=== PATIENT | male | born 1955 | race Caucasian/White ===

== ENCOUNTER 2020-11-25 08:33 | Outpatient (REF) | payer BC, SELFPAY ==
[2020-11-25 09:04] LABS: MANUAL DIFF FLAG NO
[2020-11-25 09:11] LABS: Basophils Absolute Auto 0.1 X10*3/uL (0.0-0.2); Basophils Percent Auto 0.9 % (0-2); Eosinophils Absolute Auto 0.7 X10*3/uL (0.0-0.4); Hematocrit 45.6 % (42-52); Imm Gran Abs Auto 0.02 X10*3/uL (0.00-0.03); Imm Gran Pct Auto 0.2 % (0.0-0.4); Lymphocytes Absolute Auto 2.5 X10*3/uL (1.2-4.9); Lymphocytes Percent Auto 30.9 % (20-40); Mean Corpuscular HGB Conc 35.1 g/dl (31.0-36.0); Mean Corpuscular Hemoglobin 35.2 pg (27.0-33.0); Mean Corpuscular Volume 100.4 fL (80-98); Mean Platelet Volume 10.2 fL (9.4-12.4); Monocytes Absolute Auto 0.8 X10*3/uL (0.1-1.2); Monocytes Percent Auto 10.2 % (2-11); Neutrophils Percent Auto 48.8 % (45-73); Platelet Count 215 X10*3/uL (160-400); Red Blood Count 4.54 X10*6/uL (4.60-5.80); Red Cell Distribution Width 11.8 % (11.0-16.0); White Blood Count 8.1 X10*3/uL (4.8-10.8)
[2020-11-25 09:22] LABS: Alanine Aminotransferase 84 U/L (0-40); Albumin Level 4.6 g/dL (3.5-5.0); Alkaline Phosphatase 103 U/L (39-117); Anion Gap 14 (12-20); Aspartate Amino Transferase 67 U/L (5-37); Bilirubin Total 1.6 mg/dL (0.0-1.0); Blood Urea Nitrogen 20 mg/dL (9-16); Calcium 9.4 mg/dL (8.4-10.2); Carbon Dioxide 26 mmol/L (22-29); Chloride 105 mmol/L (96-108); Cholesterol 208 mg/dL; Estimated Glomerular Filt Rate > 60; Glucose Fasting 107 mg/dL (60-99); HDL Cholesterol 38 mg/dL; LDL Cholesterol Calculated 139 mg/dl; Potassium 3.7 mmol/L (3.3-5.1); Sodium 141 mmol/L (135-145); Total Protein 7.5 g/dL (6.5-8.0); Triglycerides 159 mg/dL; Uric Acid 7.4 mg/dL (3.4-7.0)
== END 2020-11-25 08:34 | disposition home or self-care (01) ==
LOC: HO.LAB 08:33
PROVIDERS: Visit Provider Internal Medicine
DX: I10 Essential (primary) hypertension (principal); E11.9 Type 2 diabetes mellitus without complications
CPT/HCPCS: 36415; 80053; 80061; 84550; 85025

== ENCOUNTER 2021-03-02 10:59 | Outpatient (REF) | payer BC, SELFPAY ==
--- NOTE | ~2021-03-02 | XR_ITS ---
EXAMINATION: CR CHEST CLINICAL INFORMATION: Cough. COMPARISON: Chest x-ray dated 12/31/2018. TECHNIQUE: 2 views of the chest were obtained. FINDINGS: The cardiomediastinal silhouette is within normal limits in size. Lungs bilaterally are symmetrically expanded and clear. No focal consolidation, effusion or pneumothorax is seen. Slight straightening of the thoracic spine is seen with minimal vertebral spondylosis in the mid thoracic spine. XR/XR chest 2V IMPRESSION: No acute pulmonary process.
== END 2021-03-02 11:00 | disposition home or self-care (01) ==
LOC: HO.XRAY 10:59
PROVIDERS: PCP Internal Medicine; Visit Provider Internal Medicine
DX: R05 Cough (principal)
CPT/HCPCS: 71046

== ENCOUNTER 2021-05-26 08:11 | Outpatient (REF) | payer BC, SELFPAY ==
[2021-05-26 09:01] LABS: Cholesterol 168 mg/dL; Glucose Fasting 116 mg/dL (60-99); HDL Cholesterol 33 mg/dL; LDL Cholesterol Calculated 104 mg/dl; Triglycerides 155 mg/dL
== END 2021-05-26 08:12 | disposition home or self-care (01) ==
LOC: HO.LAB 08:11
PROVIDERS: PCP Internal Medicine; Visit Provider Internal Medicine
DX: E11.65 Type 2 diabetes mellitus with hyperglycemia (principal)
CPT/HCPCS: 36415; 80061; 82947

== ENCOUNTER 2021-08-28 08:41 | Outpatient (REF) | payer BC, SELFPAY ==
[2021-08-28 09:12] LABS: MANUAL DIFF FLAG NO
[2021-08-28 09:42] LABS: Basophils Percent Auto 0.7 % (0-2); Eosinophils Absolute Auto 0.4 X10*3/uL (0.0-0.4); Eosinophils Percent Auto 6.6 % (0-4); Hematocrit 45.2 % (42.0-52.0); Imm Gran Abs Auto 0.01 X10*3/uL (0.00-0.03); Imm Gran Pct Auto 0.2 % (0.0-0.4); Lymphocytes Absolute Auto 1.6 X10*3/uL (1.2-4.9); Lymphocytes Percent Auto 28.2 % (20-40); Mean Corpuscular HGB Conc 35.4 g/dl (31.0-36.0); Mean Corpuscular Hemoglobin 35.2 pg (27.0-33.0); Mean Corpuscular Volume 99.3 fL (80.0-98.0); Mean Platelet Volume 9.8 fL (9.4-12.4); Monocytes Absolute Auto 0.6 X10*3/uL (0.1-1.2); Monocytes Percent Auto 10.6 % (2-11); Neutrophils Absolute Auto 3.1 x10*3/uL (2.0-8.3); Neutrophils Percent Auto 53.7 % (45-73); Platelet Count 170 X10*3/uL (160-400); Red Blood Count 4.55 X10*6/uL (4.60-5.80); Red Cell Distribution Width 12.1 % (11.0-16.0); White Blood Count 5.8 X10*3/uL (4.8-10.8)
[2021-08-28 10:06] LABS: Alanine Aminotransferase 44 U/L (0-40); Albumin Level 4.6 g/dL (3.5-5.0); Alkaline Phosphatase 101 U/L (39-117); Anion Gap 15 (12-20); Aspartate Amino Transferase 37 U/L (5-37); Bilirubin Total 1.8 mg/dL (0.0-1.0); Blood Urea Nitrogen 12 mg/dL (9-16); Calcium 9.5 mg/dL (8.4-10.2); Carbon Dioxide 26 mmol/L (22-29); Chloride 104 mmol/L (96-108); Cholesterol 203 mg/dL; Estimated Glomerular Filt Rate > 60; Glucose Fasting 119 mg/dL (60-99); HDL Cholesterol 45 mg/dL; LDL Cholesterol Calculated 127 mg/dl; Potassium 3.9 mmol/L (3.3-5.1); Sodium 141 mmol/L (135-145); Total Protein 7.6 g/dL (6.5-8.0); Triglycerides 156 mg/dL
[2021-08-28 10:27] LABS: Prostate Specific Antigen Scr 0.44 ng/mL (<0.05-4.0)
== END 2021-08-28 08:42 | disposition home or self-care (01) ==
LOC: HO.LAB 08:41
PROVIDERS: Visit Provider Internal Medicine
DX: Z00.00 Encounter for general adult medical examination without abnormal findings (principal); E11.9 Type 2 diabetes mellitus without complications; R35.1 Nocturia
CPT/HCPCS: 36415; 80053; 80061; 84153; 85025

== ENCOUNTER 2021-11-21 09:41 | Outpatient (REF) | payer BC, SELFPAY ==
[2021-11-21 10:10] LABS: MANUAL DIFF FLAG NO
[2021-11-21 10:45] LABS: Basophils Percent Auto 0.6 % (0-2); Eosinophils Absolute Auto 0.5 X10*3/uL (0.0-0.4); Eosinophils Percent Auto 7.1 % (0-4); Hematocrit 47.6 % (42.0-52.0); Hemoglobin 16.7 g/dl (14.0-18.0); Imm Gran Abs Auto 0.01 X10*3/uL (0.00-0.03); Imm Gran Pct Auto 0.1 % (0.0-0.4); Lymphocytes Percent Auto 29.7 % (20-40); Mean Corpuscular HGB Conc 35.1 g/dl (31.0-36.0); Mean Corpuscular Hemoglobin 35.2 pg (27.0-33.0); Mean Corpuscular Volume 100.2 fL (80.0-98.0); Mean Platelet Volume 10.1 fL (9.4-12.4); Monocytes Absolute Auto 0.8 X10*3/uL (0.1-1.2); Monocytes Percent Auto 11.3 % (2-11); Neutrophils Absolute Auto 3.4 x10*3/uL (2.0-8.3); Neutrophils Percent Auto 51.2 % (45-73); Platelet Count 185 X10*3/uL (160-400); Red Blood Count 4.75 X10*6/uL (4.60-5.80); Red Cell Distribution Width 11.4 % (11.0-16.0); White Blood Count 6.7 X10*3/uL (4.8-10.8)
[2021-11-21 11:26] LABS: Alanine Aminotransferase 56 U/L (0-40); Albumin Level 4.7 g/dL (3.5-5.0); Alkaline Phosphatase 122 U/L (39-117); Anion Gap 18 (12-20); Aspartate Amino Transferase 49 U/L (5-37); Bilirubin Total 1.7 mg/dL (0.0-1.0); Blood Urea Nitrogen 14 mg/dL (9-16); Carbon Dioxide 25 mmol/L (22-29); Chloride 103 mmol/L (96-108); Cholesterol 213 mg/dL; Estimated Glomerular Filt Rate > 60; Glucose Fasting 117 mg/dL (60-99); HDL Cholesterol 44 mg/dL; LDL Cholesterol Calculated 115 mg/dl; Potassium 4.6 mmol/L (3.3-5.1); Sodium 141 mmol/L (135-145); Total Protein 7.9 g/dL (6.5-8.0); Triglycerides 270 mg/dL
[2021-11-21 11:31] LABS: Prostate Specific Antigen Scr 0.53 ng/mL (<0.05-4.0); Thyroid Stimulating Hormone 3.25 uIU/mL (0.32-4.0)
== END 2021-11-21 09:42 | disposition home or self-care (01) ==
LOC: HO.LAB 09:41
PROVIDERS: PCP Internal Medicine; Visit Provider Internal Medicine
DX: Z00.00 Encounter for general adult medical examination without abnormal findings (principal); Z13.220 Encounter for screening for lipoid disorders; Z12.5 Encounter for screening for malignant neoplasm of prostate; Z13.29 Encounter for screening for other suspected endocrine disorder
CPT/HCPCS: 36415; 80053; 80061; 84153; 84443; 85025

== ENCOUNTER 2022-06-13 08:31 | Outpatient (REF) | payer BC, SELFPAY ==
[2022-06-13 09:15] LABS: Estimated Average Glucose 105 mg/dL; Hemoglobin A1c % 5.3 %
[2022-06-13 09:41] LABS: Cholesterol 191 mg/dL; Glucose Fasting 111 mg/dL (60-99); HDL Cholesterol 40 mg/dL; LDL Cholesterol Calculated 112 mg/dl; Triglycerides 199 mg/dL
== END 2022-06-13 08:32 | disposition home or self-care (01) ==
LOC: HO.LAB 08:31
PROVIDERS: PCP Internal Medicine; Visit Provider Internal Medicine
DX: Z00.00 Encounter for general adult medical examination without abnormal findings (principal); E11.65 Type 2 diabetes mellitus with hyperglycemia
CPT/HCPCS: 36415; 80061; 82947; 83036

== ENCOUNTER 2022-06-29 09:17 | Outpatient (REF) | payer BC, SELFPAY ==
[2022-06-29 09:33] LABS: MANUAL DIFF FLAG NO
[2022-06-29 10:15] LABS: Basophils Absolute Auto 0.1 X10*3/uL (0.0-0.2); Basophils Percent Auto 0.9 % (0-2); Eosinophils Absolute Auto 0.7 X10*3/uL (0.0-0.4); Eosinophils Percent Auto 8.4 % (0-4); Hematocrit 47.7 % (42.0-52.0); Hemoglobin 17.1 g/dl (14.0-18.0); Imm Gran Abs Auto 0.01 X10*3/uL (0.00-0.03); Imm Gran Pct Auto 0.1 % (0.0-0.4); Lymphocytes Absolute Auto 2.7 X10*3/uL (1.2-4.9); Mean Corpuscular HGB Conc 35.8 g/dl (31.0-36.0); Mean Corpuscular Hemoglobin 35.6 pg (27.0-33.0); Mean Corpuscular Volume 99.4 fL (80.0-98.0); Mean Platelet Volume 10.1 fL (9.4-12.4); Monocytes Absolute Auto 0.8 X10*3/uL (0.1-1.2); Monocytes Percent Auto 9.6 % (2-11); Neutrophils Absolute Auto 3.7 x10*3/uL (2.0-8.3); Platelet Count 173 X10*3/uL (160-400); Red Cell Distribution Width 11.5 % (11.0-16.0); White Blood Count 7.8 X10*3/uL (4.8-10.8)
[2022-06-29 11:03] LABS: Alanine Aminotransferase 62 U/L (0-40); Albumin Level 4.8 g/dL (3.5-5.0); Alkaline Phosphatase 124 U/L (39-117); Anion Gap 19 (12-20); Aspartate Amino Transferase 61 U/L (5-37); Bilirubin Total 2.2 mg/dL (0.0-1.0); Blood Urea Nitrogen 12 mg/dL (9-16); Calcium 9.7 mg/dL (8.4-10.2); Carbon Dioxide 24 mmol/L (22-29); Chloride 102 mmol/L (96-108); Cholesterol 212 mg/dL; Estimated Glomerular Filt Rate > 60; Glucose Fasting 120 mg/dL (60-99); HDL Cholesterol 46 mg/dL; LDL Cholesterol Calculated 107 mg/dl; Potassium 3.9 mmol/L (3.3-5.1); Sodium 141 mmol/L (135-145); Triglycerides 299 mg/dL
[2022-06-29 11:27] LABS: Prostate Specific Antigen Scr 0.51 ng/mL (<0.05-4.0)
== END 2022-06-29 09:18 | disposition home or self-care (01) ==
LOC: HO.LDS 09:17
PROVIDERS: PCP Internal Medicine; Visit Provider Internal Medicine
DX: Z00.00 Encounter for general adult medical examination without abnormal findings (principal); Z12.5 Encounter for screening for malignant neoplasm of prostate; Z13.0 Encounter for screening for diseases of the blood and blood-forming organs and certain disorders involving the immune mechanism; E78.5 Hyperlipidemia, unspecified; I10 Essential (primary) hypertension
CPT/HCPCS: 36415; 80053; 80061; 84153; 85025

== ENCOUNTER 2022-11-29 10:02 | Outpatient (REF) | payer BC, SELFPAY ==
[2022-11-29 10:16] LABS: MANUAL DIFF FLAG NO
[2022-11-29 11:29] LABS: INTERNATIONAL NORM RATIO 1.1 (0.9-1.1); Prothrombin Time 12.5 SEC (10.0-13.1)
[2022-11-29 11:39] LABS: Basophils Percent Auto 0.7 % (0-2); Eosinophils Absolute Auto 0.5 X10*3/uL (0.0-0.4); Eosinophils Percent Auto 8.3 % (0-4); Hemoglobin 16.6 g/dl (14.0-18.0); Imm Gran Abs Auto 0.01 X10*3/uL (0.00-0.03); Imm Gran Pct Auto 0.2 % (0.0-0.4); Lymphocytes Absolute Auto 1.9 X10*3/uL (1.2-4.9); Lymphocytes Percent Auto 31.6 % (20-40); Mean Corpuscular HGB Conc 35.3 g/dl (31.0-36.0); Mean Corpuscular Volume 99.2 fL (80.0-98.0); Mean Platelet Volume 10.6 fL (9.4-12.4); Monocytes Absolute Auto 0.6 X10*3/uL (0.1-1.2); Monocytes Percent Auto 10.7 % (2-11); Neutrophils Absolute Auto 2.9 x10*3/uL (2.0-8.3); Neutrophils Percent Auto 48.5 % (45-73); Platelet Count 214 X10*3/uL (160-400); Red Blood Count 4.74 X10*6/uL (4.60-5.80); Red Cell Distribution Width 11.1 % (11.0-16.0); White Blood Count 5.9 X10*3/uL (4.8-10.8)
[2022-11-29 12:43] LABS: Alanine Aminotransferase 56 U/L (0-40); Albumin Level 4.4 g/dL (3.5-5.0); Alkaline Phosphatase 127 U/L (39-117); Aspartate Amino Transferase 42 U/L (5-37); Bilirubin Direct 0.3 mg/dL (0.0-0.5); Bilirubin Total 1.5 mg/dL (0.0-1.0); Ferritin 1981 ng/mL (20-250); Iron 151 mcg/dL (45-160); Percent Iron Saturation 50 % (15-50); Total Iron Binding Capacity 305 mcg/dL (228-428); Total Protein 7.3 g/dL (6.5-8.0); Unsaturated Iron Binding 154 ug/dL
[2022-11-30 07:21] LABS: HBc Num1 0.08 S/CO (0.00-0.79); HBsAGNum1 0.26 S/CO (0.00-0.99); Hepatitis B Core Antibody Nonreactive (Nonreactive); Hepatitis B Surface Antigen Negative (Negative); ~HepC Num1 0.06 S/CO (0.00-0.79); ~Hepatitis B Surface Antibody NONREACTIVE (Nonreactive); ~Hepatitis C Antibody Nonreactive (Nonreactive)
[2022-12-04 07:44] LABS: Mitochondrial Antibodies NEGATIVE (NEGATIVE)
[2022-12-05 15:49] LABS: Anti Nuclear Antibody Screen POSITIVE (NEGATIVE); Anti Nuclear Antibody Titer 1:40 titer
[2022-12-06 00:24] LABS: Smooth Muscle Antibody <20 U (<20)
[2022-12-07 15:48] LABS: Alpha 1 Anti-trypsin 187 mg/dL (83-199); FIB-ALT 47 U/L (9-46); FIB-Alpha-2-Macroglobulin 210 mg/dL (106-279); FIB-Apolipoprotein A1 144 mg/dL (94-176); FIB-GGT 86 U/L (3-70); FIB-Haptoglobin 170 mg/dL (43-212); Liver Fibrosis Score 0.55; Liver Fibrosis Stage F2; Nec Inflam Act Grade A1; Nec Inflam Act Score 0.35
== END 2022-11-29 10:03 | disposition home or self-care (01) ==
LOC: HO.LAB 10:02
PROVIDERS: PCP Internal Medicine; Visit Provider Internal Medicine
DX: R79.89 Other specified abnormal findings of blood chemistry (principal)
CPT/HCPCS: 36415; 80076; 81596; 82103; 82728; 83540; 85025; 85610; 86015; 86038; 86039; 86255; 86256; 86704; 86706; 86803; 87340

== ENCOUNTER 2022-11-30 09:20 | Outpatient (REF) | payer BC, SELFPAY ==
--- NOTE | ~2022-11-30 | US_ITS ---
EXAMINATION: US COMPLETE ABDOMEN WITH LIVER ELASTOGRAPHY CLINICAL INFORMATION: Elevated liver function tests. COMPARISON: None. TECHNIQUE: Real-time imaging of the abdominal viscera. Noninvasive ultrasound liver fibrosis assessment is performed using Андр[employer] Elast[employer] point quantification shear wave elastography (2D-SWE) with a C5-2 MHz transducer. Multiple elastography samples are obtained. FINDINGS: PANCREAS: Normal. The visualized pancreatic head and body are normal in appearance. The remainder of the pancreas is obscured from visualization by the overlying bowel gas. ABDOMINAL AORTA: The proximal, middle, and distal aortic segments are normal in caliber. INFERIOR VENA CAVA: Visualized portions are normal. LIVER: The liver demonstrates normal size, contour and increased echogenicity. No focal lesion or intrahepatic biliary duct dilatation. The right lobe measures 15.8 cm in length. The left lobe measures 9.9 cm in length. Portal flow is towards the liver (hepatopetal). Shear wave liver elastography median stiffness is 2.25 m/s (reference: normal median stiffness is 1.3 m/s or less). IQR/median stiffness to assess sampling precision is 0.04 (reference: good quality data set is IQR/median stiffness of 0.15 or less). GALLBLADDER: Normal. The gallbladder is physiologically distended without evidence of stones, sludge, polyps, wall thickening or pericholecystic fluid. COMMON BILE DUCT: Normal in caliber measuring 0.3 cm in diameter. RIGHT KIDNEY: Normal. No hydronephrosis. No renal calculi or focal parenchymal lesions. The kidney measures 11.5 cm in maximum dimension. LEFT KIDNEY: At the interpolar aspect, a 3 mm nonobstructing calculus is seen. There is pelviectasis, without magaly hydronephrosis. No focal parenchymal lesions. The kidney measures 11.4 cm in maximum dimension. SPLEEN: Normal. The spleen measures 11.0 cm in maximum dimension. FREE FLUID: None. US/US abdomen comp w elastography IMPRESSION: 1. There is generalized increase in hepatic echotexture, consistent with fatty infiltration or hepatocellular disease. Please correlate clinically. No focal hepatic mass or intrahepatic biliary dilatation is seen. 2. Liver elastography: Measuremensts are consistent with compensated advanced chronic liver disease. 3. A 3 mm nonobstructing left renal calculus is seen. REFERENCE: Society of Radiologists in Ultrasound Liver Stiffness Thresholds (2020): LIVER STIFFNESS THRESHOLDSLiver Stiffness equal or less than 1.3 m/s: High probability of being normal. *Liver Stiffness less than 1.7 m/s: In the absence of other known clinical signs, rules out compensated advanced chronic liver disease. *Liver Stiffness 1.7-2.1 m/s: Suggestive of compensated advanced chronic liver disease but need further test for confirmation. *Liver Stiffness over 2.1 m/s: Rules in compensated advanced chronic liver disease. *Liver Stiffness over 2.4 m/s: Suggestive of clinically significant portal hypertension. QUALITY OF DATA SET: *IQR/Median value equal or less than 0.15 implies a quality data set. *IQR/Median value over 0.15 implies a poor quality data set. SIGNIFICANT CHANGE FROM PRIOR EXAM: Significant change if liver stiffness measurement is 10% or greater from prior exam. OTHER CONSIDERATIONS: The stage of liver fibrosis may be overestimated in the setting of acute hepatitis, liver inflammation, elevated liver function tests, hepatic vascular congestion, obstructive cholestasis, non-fasting state, and infiltrative diseases such as amyloidosis and lymphoma. In some patients with NAFLD, the liver stiffness thresholds for compensated advanced chronic liver disease may be lower. In causes other than viral hepatitis and NAFLD, liver stiffness thresholds are not well established.
== END 2022-11-30 09:21 | disposition home or self-care (01) ==
LOC: HO.US 09:20
PROVIDERS: PCP Internal Medicine; Visit Provider Internal Medicine
DX: R79.89 Other specified abnormal findings of blood chemistry (principal)
CPT/HCPCS: 76705; 76981

== ENCOUNTER 2022-12-11 07:18 | Outpatient (REF) | payer BC, SELFPAY ==
[2022-12-13 13:52] LABS: Alpha Fetoprotein 4.7 ng/mL (<6.1)
== END 2022-12-11 07:19 | disposition home or self-care (01) ==
LOC: HO.LAB 07:18
PROVIDERS: PCP Internal Medicine; Visit Provider Internal Medicine
DX: E83.19 Other disorders of iron metabolism (principal); R79.89 Other specified abnormal findings of blood chemistry
CPT/HCPCS: 36415; 81256; 82105

== ENCOUNTER 2022-12-17 10:51 | Outpatient (REF) | payer BC, SELFPAY ==
[2022-12-17 12:47] LABS: Cholesterol 226 mg/dL; Glucose Fasting 121 mg/dL (60-99); HDL Cholesterol 48 mg/dL; LDL Cholesterol Calculated 127 mg/dl; Triglycerides 255 mg/dL
== END 2022-12-17 10:52 | disposition home or self-care (01) ==
LOC: HO.LAB 10:51
PROVIDERS: PCP Internal Medicine; Visit Provider Internal Medicine
DX: R73.9 Hyperglycemia, unspecified (principal); E78.5 Hyperlipidemia, unspecified
CPT/HCPCS: 36415; 80061; 82947

== ENCOUNTER 2022-12-24 10:30 | Day surgery (SDC) | payer BC, SELFPAY ==
--- NOTE | 2022-12-21 13:45 | HO.ANESPROP2 ---
Documented by User: Sera Madrigal NP 12/21/22 13:47 HPI - Anesthesia Eval Consult details Narrative: 67yo M for Colonoscopy PMFSH Active Problems Active Problems: All Active Problems (Updated 06/15/22 @ 14:34 by Wood Lamar MD) Gout (Acute) Asthma (Acute) Physical exam (Acute) Cough (Acute) Visual disturbance (Acute) Hypertension (Acute) Past Medical History Medical History (Updated 06/15/22 @ 14:34 by Wood Lamar MD) Asthma Hypertension Family History Family History Father Gout Diabetes Hypertension Past heart attack Mother Diabetes Colon cancer Sister No problems noted. Sister No problems noted. Son No problems noted. Son No problems noted. Surgical History Surgical History History of cholecystectomy History of laser refractive surgery History of vasectomy Social History Social History Housing: House Alcohol intake: current Alcohol intake frequency: 0-2 drinks per day Alcohol type: wine Patient Tobacco Use Status: Never used Tobacco e-Cigarette/Vaping Use: Never Used Second Hand Smoke Exposure: No Use of substances other than those prescribed or required for medical reasons: No Are you DNR?: No Advance Directives: No Advance Directives Information Provided: Yes Recently lost weight without trying: No Nutrition Risks: No Nutritional Risk service: No Current occupational status: retired Cognitive needs: No Hearing needs: No Vision needs: Yes Meds Allergies Allergy/AdvReac Type Severity Reaction Status Date / Time No Known Allergies Allergy Verified 12/19/22 14:15 Exam Exam Date and Time: December 21, 2022 1345 Pertinent Lab Results Pertinent Lab Results: Laboratory Tests 06/29/22 11/29/22 09:31 10:14 WBC 5.9 Hgb 16.6 Hct 47.0 Plt Count 214 Sodium 141 Potassium 3.9 Chloride 102 Carbon Dioxide 24 BUN 12 Creatinine 0.95 Assessment and Plan Assessment Anesthesia Assessment: Chart Reviewed Documented by User: Elías Nazario MD 12/24/22 11:30 [facility] Past Medical History Medical History (Updated 06/15/22 @ 14:34 by Wood Lamar MD) Asthma Hypertension Family History Family History Father Gout Diabetes Hypertension Past heart attack Mother Diabetes Colon cancer Sister No problems noted. Sister No problems noted. Son No problems noted. Son No problems noted. Family history of problems with anesthesia: No Surgical History Surgical History History of cholecystectomy History of laser refractive surgery History of vasectomy History of Problems with Anesthesia: No Social History Social History Housing: House Alcohol intake: current Alcohol intake frequency: 0-2 drinks per day Alcohol type: wine Patient Tobacco Use Status: Never used Tobacco e-Cigarette/Vaping Use: Never Used Second Hand Smoke Exposure: No Use of substances other than those prescribed or required for medical reasons: No Are you DNR?: No Advance Directives: No Advance Directives Information Provided: Yes Recently lost weight without trying: No Nutrition Risks: No Nutritional Risk service: No Current occupational status: retired Cognitive needs: No Hearing needs: No Vision needs: Yes Meds Allergies Allergy/AdvReac Type Severity Reaction Status Date / Time No Known Allergies Allergy Verified 12/19/22 14:15 Exam Airway Mallampati Class: II TM Dist: >3cm Neck ROM: Full Heart: cta Lungs: rrr Assessment and Plan Final Anesthetic Review Family History of Problems with Anesthesia: No History of Problems with Anesthesia: No NPO: Yes ASA Class: II Final Preanesthetic Review: No Changes in Pt Med Stat, Meds/Allgs Chart Reviewed, Consent Obtained/Reviewed and Anes Risks/Benef Reviewed Patient Risk: Low Procedure Risk: Low Anesthetic Plan Anesthetic Plan: MAC: and Agree w/ Assess. and Plan Disposition: Standard PACU
[2022-12-24 11:05] VITALS: BMI 27.4
[2022-12-24 11:10] VITALS: BP 161/95; PULSE 111; RESP 16; TEMP 37.2; O2SAT 94
[2022-12-24 11:23] VITALS: PULSE 99
[2022-12-24] MEDS: Lactated Ringers 1,000 ML 100 ML IVCONT (11:24)
[2022-12-24 12:41] VITALS: BP 118/81; PULSE 91; RESP 18; TEMP 37; O2SAT 95
--- NOTE | 2022-12-24 12:42 | PM.OP ---
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 Transverse colon polyps x 2) Condition: stable Disposition: PACU
[2022-12-24 12:56] VITALS: BP 158/97; PULSE 87; RESP 18; TEMP 37; O2SAT 96
--- NOTE | 2022-12-24 22:47 | OP_ITS ---
SURGEON: Pedro Hedrick MD INDICATIONS: The patient presents for followup of colorectal cancer screening and family history of colon cancer. Full consent has been obtained from him for this, including risks of bleeding and perforation. PREOPERATIVE DIAGNOSIS: POSTOPERATIVE DIAGNOSIS: PROCEDURE PERFORMED: ESTIMATED BLOOD LOSS: COMPLICATIONS: ANESTHESIA: Medication used, monitored anesthesia care. ASSISTANTS: SPECIMENS: PREOPERATIVE DIAGNOSES: Colorectal cancer screening and family history of colon cancer. POSTOPERATIVE DIAGNOSES: Colorectal cancer screening and family history of colon cancer, colon polyp, diverticulosis, and internal hemorrhoids. PROCEDURES PERFORMED: Colonoscopy to the cecum and terminal ileum with biopsy and removal of polyp and cold snare polypectomy. DESCRIPTION OF PROCEDURE: The patient was placed in the left lateral decubitus position. The digital rectal exam revealed no abnormalities. The Olympus video pediatric colonoscope was entered into the rectum and advanced easily to the cecum. Once in the cecum, I did identify normal-appearing cecal pouch with appendiceal orifice and a normal-appearing ileocecal valve. The terminal ileum was cannulated and appeared normal. The scope was withdrawn back in the colon. The entire cecum and ileocecal valve appeared normal. The scope was then slowly withdrawn assessing all mucosal surfaces carefully. Preparation was excellent. In the transverse colon, there were 2 polyps. One was approximately 3 mm in diameter and was biopsied and removed completely with a cold biopsy forceps. The other polyp was approximately 5 or 6 mm and was removed by cold snare polypectomy and recovered by suction. The polypectomy site appeared clean, without any sign of residual polyp nor any significant bleeding. Both polyp specimens were placed in the same container. I did not visualize any other polyps, colitis, nor angiodysplasia. There was a moderate amount of wide-mouthed diverticuli in the descending and sigmoid colon. I did not visualize any sign of other polyps, colitis, nor angiodysplasia. In the rectum, the scope was retroflexed visualizing internal hemorrhoids, but no other pathology. The rectal mucosa appeared normal. The scope was straightened out and withdrawn from the patient. He tolerated the procedure well and was returned to the recovery area in stable condition. IMPRESSION: 1. Colon polyps. 2. Diverticulosis. 3. Internal hemorrhoids. PLAN: The results of the pathology will be checked. Even if the polyps are not adenomatous I would recommend repeat a colonoscopy in 5 years given his family history of colon cancer in his mother in her 50s. He was advised not to use any aspirin or NSAIDs for 1 week. The other issue is that of his elevated iron studies. His LFTs in November were slightly elevated with AST of 42 and ALT of 56 and an elevated bilirubin, but it is predominantly indirect bilirubin consistent with a Gilbert's syndrome. His ferritin level came back at 1,981 and his iron came back at 151 with an iron saturation of 50%. Subsequent genetic testing for hemachromatosis was negative for the 2 main genes involved. An ultrasound of the liver did show some evidence of hepatocellular disease, but no evidence of any liver mass, biliary disease, nor cirrhosis. We will have to decide about doing a liver biopsy and do a quantitative iron analysis to definitively rule out hemachromatosis given the negative genetic studies. However, prior to that, I shall repeat his iron studies to reassess things. He was advised not to use any aspirin or NSAIDs for at least 1 week. This has all been discussed with his . MD ROMANA Urbina/ROSELIA / [id number] MTDD
== END 2022-12-24 13:45 | disposition home or self-care (01) ==
PROVIDERS: PCP Internal Medicine; Visit Provider Internal Medicine
PROC: 0DJD8ZZ Inspection of Lower Intestinal Tract, Via Natural or Artificial Opening Endoscopic (ICD-10-PCS; CPT 45378; principal; 2022-12-24 11:40)
DX: Z12.11 Encounter for screening for malignant neoplasm of colon (principal); Z80.0 Family history of malignant neoplasm of digestive organs; D12.3 Benign neoplasm of transverse colon; K57.30 Diverticulosis of large intestine without perforation or abscess without bleeding; K64.8 Other hemorrhoids; I10 Essential (primary) hypertension; M10.20 Drug-induced gout, unspecified site; R79.89 Other specified abnormal findings of blood chemistry
CPT/HCPCS: 45385; 45380; 88305

== ENCOUNTER 2023-01-04 09:09 | Outpatient (REF) | payer BC, SELFPAY ==
[2023-01-04 09:22] LABS: MANUAL DIFF FLAG NO
[2023-01-04 09:54] LABS: Basophils Absolute Auto 0.1 X10*3/uL (0.0-0.2); Basophils Percent Auto 0.8 % (0-2); Eosinophils Absolute Auto 0.6 X10*3/uL (0.0-0.4); Eosinophils Percent Auto 9.6 % (0-4); Hematocrit 44.2 % (42.0-52.0); Hemoglobin 15.5 g/dl (14.0-18.0); INTERNATIONAL NORM RATIO 1.1 (0.9-1.1); Imm Gran Abs Auto 0.02 X10*3/uL (0.00-0.03); Imm Gran Pct Auto 0.3 % (0.0-0.4); Lymphocytes Percent Auto 32.9 % (20-40); Mean Corpuscular HGB Conc 35.1 g/dl (31.0-36.0); Mean Corpuscular Hemoglobin 35.6 pg (27.0-33.0); Mean Corpuscular Volume 101.4 fL (80.0-98.0); Mean Platelet Volume 10.3 fL (9.4-12.4); Monocytes Absolute Auto 0.6 X10*3/uL (0.1-1.2); Monocytes Percent Auto 10.5 % (2-11); Neutrophils Absolute Auto 2.8 x10*3/uL (2.0-8.3); Neutrophils Percent Auto 45.9 % (45-73); Platelet Count 196 X10*3/uL (160-400); Prothrombin Time 12.2 SEC (10.0-13.1); Red Blood Count 4.36 X10*6/uL (4.60-5.80); Red Cell Distribution Width 11.6 % (11.0-16.0)
[2023-01-04 09:56] LABS: Partial Thromboplastin Time 31.9 SEC (26.0-36.4)
[2023-01-04 10:20] LABS: Iron 136 mcg/dL (45-160); Percent Iron Saturation 45 % (15-50); Total Iron Binding Capacity 300 mcg/dL (228-428); Unsaturated Iron Binding 164 ug/dL
[2023-01-04 11:19] LABS: Ferritin 2579 ng/mL (20-250)
== END 2023-01-04 09:10 | disposition home or self-care (01) ==
LOC: HO.LAB 09:09
PROVIDERS: PCP Internal Medicine; Visit Provider Internal Medicine
DX: E83.19 Other disorders of iron metabolism (principal); R79.89 Other specified abnormal findings of blood chemistry
CPT/HCPCS: 36415; 82728; 83540; 85025; 85610; 85730

== ENCOUNTER 2023-01-14 07:00 | Day surgery (SDC) | payer BC, SELFPAY ==
[2023-01-14] VITALS (7 sets, daily range): BP systolic 122–145; BP diastolic 59–79; PULSE 64–72; RESP 15–17; TEMP 36.3–36.9; O2SAT 92–95; BMI 27.2
--- NOTE | ~2023-01-14 | US_ITS ---
EXAMINATION: ULTRASOUND-GUIDED BIOPSY OF LIVER COMPARISON: Ultrasound abdomen with a last one 11/30/2022. CLINICAL INDICATION: Elevated liver enzymes. TECHNIQUE: Following explaining ultrasound-guided liver biopsy procedure, benefits and risk, a written consent was obtained. Patient was placed supine on ultrasound stretcher and preliminary ultrasound imaging was obtained. An optimal site was selected along the right lateral abdomen, along the intercostal margin and the area was marked. The marked area was cleaned and draped in usual sterile manner. 1% local Xylocaine was injected at puncture site. Through a small skin incision 18-gauge guide needle was advanced into the right hepatic lobe under ultrasound guidance. Coaxially an 18-gauge achieve biopsy gun was administered and a 3 pass core biopsy of liver was obtained. Postprocedure the guide needle was removed and complete hemostasis achieved. Simple dressing was applied at the puncture site. The patient tolerated the procedure extremely well. Conscious sedation was administered for 15 minutes and patient monitored by IR nurse and the radiologist. FINDINGS: On preliminary ultrasound imaging the liver is echogenic without any focal lesion. There is no hepatomegaly. No intrahepatic ductal dilatation seen. US/US biopsy liver IMPRESSION: Successful ultrasound-guided liver biopsy performed without immediate complications.
[2023-01-14 08:11] LABS: Anion Gap 15 (12-20); Blood Urea Nitrogen 11 mg/dL (9-16); Carbon Dioxide 24 mmol/L (22-29); Chloride 105 mmol/L (96-108); Creatinine Clr Calc Pharmacy 81.4; Estimated Glomerular Filt Rate > 60; Potassium 3.4 mmol/L (3.3-5.1); Sodium 141 mmol/L (135-145)
[2023-01-14] MEDS: Lidocaine HCl 1 % MPF 5 ML VIAL SUBCUT (09:34)
[2023-01-24 19:23] LABS: Iron Index 0.4 umol/g/yr (<1.0); Iron, Liver Tissue 1557 ug/g drywt (400-2200)
== END 2023-01-14 11:22 | disposition home or self-care (01) ==
PROVIDERS: PCP Internal Medicine; Visit Provider Radiology Diagnostic Radiology
DX: E83.19 Other disorders of iron metabolism (principal); R74.8 Abnormal levels of other serum enzymes; R79.89 Other specified abnormal findings of blood chemistry; K75.81 Nonalcoholic steatohepatitis (NASH); Z80.0 Family history of malignant neoplasm of digestive organs; I10 Essential (primary) hypertension; M10.9 Gout, unspecified; Z79.899 Other long term (current) drug therapy; Z98.52 Vasectomy status
CPT/HCPCS: 36415; 47000; 76942; 80051; 82565; 83540; 84520; 88300; 88307; 88313; 99152; J2250; J3010

== ENCOUNTER 2023-03-12 09:53 | Outpatient (REF) | payer BC, SELFPAY ==
[2023-03-12 11:03] LABS: Alanine Aminotransferase 65 U/L (0-40); Albumin Level 4.5 g/dL (3.5-5.0); Alkaline Phosphatase 102 U/L (39-117); Aspartate Amino Transferase 60 U/L (5-37); Bilirubin Direct 0.4 mg/dL (0.0-0.5); Bilirubin Total 1.6 mg/dL (0.0-1.0); Iron 113 mcg/dL (45-160); Percent Iron Saturation 38 % (15-50); Total Iron Binding Capacity 297 mcg/dL (228-428); Total Protein 7.2 g/dL (6.5-8.0); Unsaturated Iron Binding 184 ug/dL
[2023-03-12 11:57] LABS: Ferritin 2010 ng/mL (20-250)
== END 2023-03-12 09:54 | disposition home or self-care (01) ==
LOC: HO.BBR 09:53
PROVIDERS: PCP Internal Medicine; Visit Provider Internal Medicine
DX: E83.19 Other disorders of iron metabolism (principal)
CPT/HCPCS: 36415; 80076; 82728; 83540; 85018; 99195

== ENCOUNTER 2023-03-22 07:31 | Outpatient (REF) | payer BC, SELFPAY ==
[2023-03-22 09:36] LABS: Alanine Aminotransferase 49 U/L (0-40); Albumin Level 4.4 g/dL (3.5-5.0); Alkaline Phosphatase 107 U/L (39-117); Anion Gap 16 (12-20); Aspartate Amino Transferase 54 U/L (5-37); Bilirubin Total 1.7 mg/dL (0.0-1.0); Blood Urea Nitrogen 16 mg/dL (9-16); Calcium 9.6 mg/dL (8.4-10.2); Carbon Dioxide 23 mmol/L (22-29); Chloride 107 mmol/L (96-108); Cholesterol 195 mg/dL; Estimated Glomerular Filt Rate > 60; Glucose Fasting 92 mg/dL (60-99); HDL Cholesterol 40 mg/dL; LDL Cholesterol Calculated 127 mg/dl; Potassium 4.3 mmol/L (3.3-5.1); Sodium 142 mmol/L (135-145); Total Protein 7.3 g/dL (6.5-8.0); Triglycerides 140 mg/dL
== END 2023-03-22 07:32 | disposition home or self-care (01) ==
LOC: HO.LAB 07:31
PROVIDERS: PCP Internal Medicine; Visit Provider Internal Medicine
DX: E78.5 Hyperlipidemia, unspecified (principal)
CPT/HCPCS: 36415; 80053; 80061

== ENCOUNTER 2023-04-16 09:59 | Outpatient (REF) | payer BC, SELFPAY | END 2023-04-16 10:00 | disposition home or self-care (01) | LOC: HO.BBR 09:59 | PROVIDERS: PCP Internal Medicine; Visit Provider Internal Medicine | DX: E83.19 Other disorders of iron metabolism (principal) | CPT/HCPCS: 85018; 99195 ==

== ENCOUNTER 2023-05-14 09:50 | Outpatient (REF) | payer BC, SELFPAY | END 2023-05-14 09:51 | disposition home or self-care (01) | LOC: HO.BBR 09:50 | PROVIDERS: PCP Internal Medicine; Visit Provider Internal Medicine | DX: E83.19 Other disorders of iron metabolism (principal) | CPT/HCPCS: 85014; 85018; 99195 ==

== ENCOUNTER 2023-06-11 09:54 | Outpatient (REF) | payer BC, SELFPAY ==
[2023-06-11 12:13] LABS: Alanine Aminotransferase 30 U/L (0-40); Albumin Level 4.2 g/dL (3.5-5.0); Alkaline Phosphatase 99 U/L (39-117); Aspartate Amino Transferase 29 U/L (5-37); Bilirubin Direct 0.3 mg/dL (0.0-0.5); Bilirubin Total 0.9 mg/dL (0.0-1.0); Ferritin 600 ng/mL (20-250); Iron 107 mcg/dL (45-160); Percent Iron Saturation 34 % (15-50); Total Iron Binding Capacity 312 mcg/dL (228-428); Total Protein 7.4 g/dL (6.5-8.0); Unsaturated Iron Binding 205 ug/dL
== END 2023-06-11 09:55 | disposition home or self-care (01) ==
LOC: HO.BBR 09:54
PROVIDERS: PCP Internal Medicine; Visit Provider Internal Medicine
DX: E83.19 Other disorders of iron metabolism (principal)
CPT/HCPCS: 36415; 80076; 82728; 83540; 85018; 99195

== ENCOUNTER 2023-06-21 10:29 | Outpatient (REF) | payer BC, SELFPAY ==
[2023-06-21 12:27] LABS: Cholesterol 186 mg/dL (<200); HDL Cholesterol 43 mg/dL (>40); LDL Cholesterol Calculated 108 mg/dL (<100); Triglycerides 176 mg/dL (<150)
== END 2023-06-21 10:30 | disposition home or self-care (01) ==
LOC: HO.LAB 10:29
PROVIDERS: PCP Internal Medicine; Visit Provider Internal Medicine
DX: E78.5 Hyperlipidemia, unspecified (principal)
CPT/HCPCS: 36415; 80061

== ENCOUNTER 2023-06-25 13:42 | Outpatient (AMB) | payer BC, SELFPAY ==
[2023-06-25 13:44] VITALS: BP 110/62; PULSE 85; O2SAT 98; BMI 28.2
--- NOTE | 2023-06-25 13:44 | MHC.PC.OV ---
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 Accompanied by: Self / Same As Patient Allergies No Known Allergies Allergy (Verified 06/25/23 13:44) Medication List - Last Reconciled 06/25/23 by Wood Lamar MD atenolol 100 mg PO DAILY losartan 100 mg PO DAILY nifedipine ER 60 mg PO DAILY Tobacco use date assessed: 12/19/22 Dental Screening Dental Screen Date: 06/25/23 Did you have a dental visit in the last 12 months?: Yes Did you have a dental problem in the last 6 months where you did not have access to dental care?: No Was dental information given to patient?: Patient has dentist HPI Annual Exam HPI Details HTN; doing well PFSH Medical History Asthma Hypertension Surgical History History of cholecystectomy History of laser refractive surgery History of vasectomy Family History Father Gout Diabetes Hypertension Past heart attack Mother Diabetes Colon cancer Sister No problems noted. Sister No problems noted. Son No problems noted. Son No problems noted. Social History Housing: House Alcohol intake: current Alcohol intake frequency: 0-2 drinks per day Alcohol type: wine Patient Tobacco Use Status: Never used Tobacco e-Cigarette/Vaping Use: Never Used Second Hand Smoke Exposure: No service: No Current occupational status: retired Cognitive needs: No Hearing needs: No Vision needs: Yes Questionnaire PHQ-9 Over the last 2 weeks, how often have you been bothered by any of the following problems? 1. Little interest or pleasure in doing things: not at all 2. Feeling down, depressed, or hopeless: not at all 3. Trouble falling or staying asleep, or sleeping too much: not at all 4. Feeling tired or having little energy: not at all 5. Poor appetite or overeating: not at all 6. Feeling bad about yourself - or that you are a failure or have let yourself or your family down: not at all 7. Trouble concentrating on things, such as reading the newspaper or watching television: not at all 8. Moving or speaking so slowly that other people could have noticed. Or the opposite - being so fidgety or restless that you have been moving around a lot more than usual: not at all 9. Thoughts that you would be better off or of hurting yourself in some way: not at all Total score: 0 Depression Screening Interpretation: Negative 28465 - PHQ-9 Billing: Yes Source: Developed by Drs. Pedro Ibarra, Janice Moya, Randall Romo and colleagues, with an educational cintia from [employer]. Thrive Questionnaire Date Thrive assessed: 12/19/22 AUDIT C Alcohol Use Questionnaire (AUDIT-C) 1. How often do you have a drink containing alcohol?: 4 or more times a week 2. How many drinks containing alcohol do you have on a typical day when you are drinking?: 1 or 2 3. How often do you have six or more drinks on one occasion?: Never Total Score: 4 Score Reviewed/Action Taken: Yes LEYDI-7 AMB Questionnaire LEYDI-7 Date LEYDI - 7 assessed: 12/19/22 Source: Developed by Drs. Pedro Ibarra, Janice Moya, Randall Romo and colleagues, with an educational cintia from [employer]. Review of Systems Const Denies chills, Denies fatigue, Denies headache(s) and Denies weight loss Eyes Denies change in vision, Denies diplopia and Denies eye pain ENT Denies vertigo, Denies dizziness, Denies headache(s) and Denies nasal discharge Card Denies chest pain, Denies rapid heart rate and Denies dyspnea on exertion Resp Denies chest congestion, Denies cough, Denies pain with cough and Denies dyspnea on exertion GI Denies abdominal pain, Denies hematochezia and Denies change in bowel habits Musc Denies myalgias, Denies arthralgias and Denies joint swelling Skin/Breast Denies lesions and Denies unusual bruising Neuro Denies vertigo, Denies dizziness, Denies headache(s) and Denies focal weakness Endo Denies fatigue Physical exam (Primary Care) Vital Signs: Last Vital Signs Pulse 85 06/25/23 13:44 BP 110/62 06/25/23 13:44 Pulse Ox 98 06/25/23 13:44 Oxygen Delivery Method Room Air 06/25/23 13:44 BMI result Body Mass Index 28.2 Tobacco/Smoking Status: Tobacco use Status Tobacco use date assessed 12/19/22 06/25/23 13:49 Patient Tobacco Use Status Never used Tobacco 06/25/23 13:49 e-Cigarette/Vaping Use Never Used 06/25/23 13:49 PHQ-9: PHQ-9 Score PHQ-9: Total score 0 06/25/23 13:49 Depression Screening Interpretation: Negative Thrive Assessment: Date of Thrive Assessment Date Thrive assessed 12/19/22 06/25/23 13:49 Const General: cooperative, healthy appearing and no acute distress Orientation/consciousness: oriented to person, oriented to place and oriented to time HENMT Head: Yes normal to inspection, Yes normocephalic and Yes atraumatic Mouth: Normal oral and palatal mucosa present and tongue normal Throat: Yes posterior oropharynx normal and Yes uvula midline Eyes General: appearance normal, both eyes and all related structures Neck Neck: Yes normal visual inspection, Yes full ROM and Yes no lymphadenopathy Thyroid: Thyroid normal Carotids: normal carotid upstroke Chest Chest palpation & inspection: normal inspection of the chest Resp Effort & Inspection: normal respiratory effort and able to speak in complete sentences Auscultation: clear to auscultation bilaterally Cardio Jugular venous distension: no JVD Palpation: normal PMI Rate: regular rate Rhythm: regular rhythm Heart sounds: S1 normal heart sound present and S2 normal heart sound present GI Inspection: Yes normal to inspection Palpation (GI): Soft to palpation and No hepatosplenomegaly present Auscultation: normal bowel sounds General: Yes no CVA tenderness Back/Spine/Pelvis Back: no CVA tenderness Skin General skin exam: no rashes or lesions noted Neuro General: oriented to person, oriented to place and oriented to time Extrem General: Yes normal to inspection and Yes full ROM Assessment and Plan Assessment & Plan (1) Physical exam: Code(s): Z00.00 - Encounter for general adult medical examination without abnormal findings Plan: labs (2) Hypertension: Code(s): I10 - Essential (primary) hypertension Plan: stable; same rx Orders: Orders Comprehensive Delta. Panel Fast Today N28.9 - Disorder of kidney and ureter, unspecified Lipid Panel Today E78.5 - Hyperlipidemia, unspecified Prostate Specific Antigen Scr Today Z00.00 - Encounter for general adult medical examination without abnormal findings Coding Level of Care Code Est Pt Prev Care >65y(08724) Diagnoses Physical exam Z00.00 Hypertension I10
== END 2023-06-25 13:59 | disposition home or self-care (01) ==
PROVIDERS: PCP Internal Medicine; Visit Provider Internal Medicine
DX: Z00.00 Encounter for general adult medical examination without abnormal findings (principal); I10 Essential (primary) hypertension
CPT/HCPCS: 99397

== ENCOUNTER 2023-07-17 10:00 | Outpatient (REF) | payer BC, SELFPAY | END 2023-07-17 10:01 | disposition home or self-care (01) | LOC: HO.BBR 10:00 | PROVIDERS: PCP Internal Medicine; Visit Provider Internal Medicine | DX: E83.19 Other disorders of iron metabolism (principal) | CPT/HCPCS: 85018; 99195 ==

== ENCOUNTER 2023-08-15 08:55 | Outpatient (REF) | payer BC, SELFPAY | END 2023-08-15 08:56 | disposition home or self-care (01) | LOC: HO.BBR 08:55 | PROVIDERS: PCP Internal Medicine; Visit Provider Internal Medicine | DX: E83.19 Other disorders of iron metabolism (principal) | CPT/HCPCS: 85014; 85018; 99195 ==

== ENCOUNTER 2023-09-17 09:55 | Outpatient (REF) | payer BC, SELFPAY ==
[2023-09-17 11:24] LABS: Alanine Aminotransferase 50 U/L (0-40); Albumin Level 4.1 g/dL (3.5-5.0); Alkaline Phosphatase 88 U/L (39-117); Aspartate Amino Transferase 52 U/L (5-37); Bilirubin Direct 0.3 mg/dL (0.0-0.5); Bilirubin Total 1.2 mg/dL (0.0-1.0); Iron 110 mcg/dL (45-160); Percent Iron Saturation 34 % (15-50); Total Iron Binding Capacity 319 mcg/dL (228-428); Total Protein 7.2 g/dL (6.5-8.0); Unsaturated Iron Binding 209 ug/dL
[2023-09-17 11:37] LABS: Ferritin 424 ng/mL (20-250)
== END 2023-09-17 09:56 | disposition home or self-care (01) ==
LOC: HO.BBR 09:55
PROVIDERS: PCP Internal Medicine; Visit Provider Internal Medicine
DX: E83.19 Other disorders of iron metabolism (principal)
CPT/HCPCS: 36415; 80076; 82728; 83540; 85018; 99195

== ENCOUNTER 2023-10-02 08:51 | Outpatient (REF) | payer BC, SELFPAY ==
[2023-10-02 10:55] LABS: Alanine Aminotransferase 37 U/L (0-40); Albumin Level 4.3 g/dL (3.5-5.0); Alkaline Phosphatase 99 U/L (39-117); Anion Gap 12 (12-20); Aspartate Amino Transferase 37 U/L (5-37); Bilirubin Total 1.6 mg/dL (0.0-1.0); Blood Urea Nitrogen 16 mg/dL (9-16); Calcium 9.3 mg/dL (8.4-10.2); Carbon Dioxide 26 mmol/L (22-29); Chloride 106 mmol/L (96-108); Cholesterol 187 mg/dL (<200); Estimated Glomerular Filt Rate > 60; Glucose Fasting 105 mg/dL (60-99); HDL Cholesterol 40 mg/dL (>40); LDL Cholesterol Calculated 104 mg/dL (<100); Potassium 3.5 mmol/L (3.3-5.1); Sodium 140 mmol/L (135-145); Total Protein 7.4 g/dL (6.5-8.0); Triglycerides 219 mg/dL (<150)
[2023-10-02 11:09] LABS: Prostate Specific Antigen Scr 0.51 ng/mL (<0.05-4.0)
== END 2023-10-02 08:52 | disposition home or self-care (01) ==
LOC: HO.LAB 08:51
PROVIDERS: PCP Internal Medicine; Visit Provider Internal Medicine
DX: Z00.00 Encounter for general adult medical examination without abnormal findings (principal); Z12.5 Encounter for screening for malignant neoplasm of prostate; N28.9 Disorder of kidney and ureter, unspecified; E78.5 Hyperlipidemia, unspecified
CPT/HCPCS: 36415; 80053; 80061; 84153

== ENCOUNTER 2023-10-04 14:03 | Outpatient (AMB) | payer BC, SELFPAY ==
[2023-10-04 14:05] VITALS: BP 140/62; PULSE 110; O2SAT 93; BMI 29.1
--- NOTE | 2023-10-04 14:05 | MHC.PC.OV ---
Vital Signs 10/04/23 14:05 Height 5 ft 9 in Weight 197 lb BMI 29.1 BP 140/62 H Blood Pressure Location Lt brachial Position Sitting Pulse 110 H Pulse Source Pulse Oximeter Pulse Oximetry (%) 93 Oxygen Delivery Method Room Air Intake Visit Reasons: 3 mth f/u Dye Stand Loader Required: No Senior Economist: Not Required per policy Accompanied by: Self / Same As Patient Allergies No Known Allergies Allergy (Verified 10/04/23 14:05) Medication List - Last Reconciled 10/07/23 by Wood Lamar MD atenolol 100 mg PO DAILY losartan 100 mg PO DAILY methylprednisolone (Medrol (Alden)) PO PER PKG DIR nifedipine ER 60 mg PO DAILY Tobacco use date assessed: 12/19/22 Fall risk assessment: No Falls in past year Last assessed Fall Risk: 10/04/23 Dental Screening Dental Screen Date: 10/04/23 Did you have a dental visit in the last 12 months?: Yes Did you have a dental problem in the last 6 months where you did not have access to dental care?: No Was dental information given to patient?: Patient has dentist HPI 3 mth f/u HPI Details HTN on Rx; doing well and compliant [facility] Medical History Asthma Hypertension Surgical History History of laser refractive surgery History of cholecystectomy History of vasectomy Family History Father Gout Diabetes Hypertension Past heart attack Mother Diabetes Colon cancer Sister No problems noted. Sister No problems noted. Son No problems noted. Son No problems noted. Social History Housing: House Alcohol intake: current Alcohol intake frequency: 0-2 drinks per day Alcohol type: wine Patient Tobacco Use Status: Never used Tobacco e-Cigarette/Vaping Use: Never Used Second Hand Smoke Exposure: No service: No Current occupational status: retired Cognitive needs: No Hearing needs: No Vision needs: Yes Questionnaire Thrive Questionnaire Date Thrive assessed: 12/19/22 LEYDI-7 AMB Questionnaire LEYDI-7 Date LEYDI - 7 assessed: 12/19/22 Source: Developed by Drs. Pedro Ibarra, Janice Moya, Randall Romo and colleagues, with an educational cintia from [employer]. Review of Systems Const Denies chills, Denies headache(s) and Denies weight loss ENT Denies headache(s) Card Denies chest pain, Denies syncope, Denies irregular heart rhythm and Denies dyspnea Resp Denies chest congestion, Denies cough and Denies dyspnea GI Denies abdominal pain, Denies change in stool character, Denies nausea and Denies vomiting Musc Denies deformity and Denies joint swelling Neuro Denies syncope and Denies headache(s) Physical exam (Primary Care) Vital Signs: Last Vital Signs Pulse 110 H 10/04/23 14:05 BP 140/62 H 10/04/23 14:05 Pulse Ox 93 10/04/23 14:05 Oxygen Delivery Method Room Air 10/04/23 14:05 BMI result Body Mass Index 29.1 Tobacco/Smoking Status: Tobacco use Status Tobacco use date assessed 12/19/22 10/04/23 14:06 Patient Tobacco Use Status Never used Tobacco 10/04/23 14:06 e-Cigarette/Vaping Use Never Used 10/04/23 14:06 Thrive Assessment: Date of Thrive Assessment Date Thrive assessed 12/19/22 10/04/23 14:06 Const General: cooperative, comfortable, no acute distress and alert Neck Neck: Yes no lymphadenopathy Thyroid: Thyroid normal Resp Effort & Inspection: normal respiratory effort Auscultation: clear to auscultation bilaterally Percussion: percussion normal Cardio Jugular venous distension: no JVD Palpation: normal PMI Rate: regular rate Rhythm: regular rhythm Heart sounds: S1 normal heart sound present and S2 normal heart sound present GI Inspection: Yes normal to inspection Palpation (GI): No hepatosplenomegaly present Skin General skin exam: no rashes or lesions noted Extrem General: Yes no clubbing, cyanosis or edema Assessment and Plan Assessment & Plan (1) Hypertension: Code(s): I10 - Essential (primary) hypertension Plan: stable; same rx Medications: New methylprednisolone (Medrol (Alden)) PO PER PKG DIR 21 ea 0RF Refilled atenolol 100 mg PO DAILY 90 tabs 8RF Coding Level of Care Code Est Pt Level 3 (73580) Diagnoses Hypertension I10
== END 2023-10-04 14:21 | disposition home or self-care (01) ==
PROVIDERS: PCP Internal Medicine; Visit Provider Internal Medicine
DX: I10 Essential (primary) hypertension (principal)
CPT/HCPCS: 99213

== ENCOUNTER 2023-10-17 09:56 | Outpatient (REF) | payer BC, SELFPAY | END 2023-10-17 09:57 | disposition home or self-care (01) | LOC: HO.BBR 09:56 | PROVIDERS: PCP Internal Medicine; Visit Provider Internal Medicine | DX: E83.19 Other disorders of iron metabolism (principal) | CPT/HCPCS: 85014; 85018; 99195 ==

== ENCOUNTER 2023-11-18 09:55 | Outpatient (REF) | payer BC, SELFPAY | END 2023-11-18 09:56 | disposition home or self-care (01) | LOC: HO.BBR 09:55 | PROVIDERS: PCP Internal Medicine; Visit Provider Internal Medicine | DX: E83.19 Other disorders of iron metabolism (principal) | CPT/HCPCS: 85018; 99195 ==

== ENCOUNTER 2023-12-19 09:58 | Outpatient (REF) | payer BC, SELFPAY ==
[2023-12-19 11:29] LABS: Alanine Aminotransferase 48 U/L (0-40); Albumin Level 4.1 g/dL (3.5-5.0); Alkaline Phosphatase 140 U/L (39-117); Aspartate Amino Transferase 49 U/L (5-37); Bilirubin Direct 0.4 mg/dL (0.0-0.5); Bilirubin Total 1.2 mg/dL (0.0-1.0); Iron 205 mcg/dL (45-160); Percent Iron Saturation 54 % (15-50); Total Iron Binding Capacity 381 mcg/dL (228-428); Total Protein 7.1 g/dL (6.5-8.0); Unsaturated Iron Binding 176 ug/dL
[2023-12-19 11:42] LABS: Ferritin 162 ng/mL (20-250)
== END 2023-12-19 09:59 | disposition home or self-care (01) ==
LOC: HO.BBR 09:58
PROVIDERS: PCP Internal Medicine; Visit Provider Internal Medicine
DX: E83.19 Other disorders of iron metabolism (principal)
CPT/HCPCS: 36415; 80076; 82728; 83540; 85018; 99195

== ENCOUNTER 2024-01-02 09:28 | Outpatient (REF) | payer BC, SELFPAY ==
[2024-01-02 09:41] LABS: MANUAL DIFF FLAG NO
[2024-01-02 10:31] LABS: Basophils Percent Auto 0.6 % (0-2); Eosinophils Absolute Auto 0.6 X10*3/uL (0.0-0.4); Eosinophils Percent Auto 7.8 % (0-4); Hematocrit 42.4 % (42.0-52.0); Hemoglobin 14.9 g/dl (14.0-18.0); Imm Gran Abs Auto 0.03 X10*3/uL (0.00-0.03); Imm Gran Pct Auto 0.4 % (0.0-0.4); Lymphocytes Percent Auto 28.4 % (20-40); Mean Corpuscular HGB Conc 35.1 g/dl (31.0-36.0); Mean Corpuscular Hemoglobin 35.1 pg (27.0-33.0); Mean Platelet Volume 9.9 fL (9.4-12.4); Monocytes Absolute Auto 0.8 X10*3/uL (0.1-1.2); Monocytes Percent Auto 11.7 % (2-11); Neutrophils Absolute Auto 3.7 x10*3/uL (2.0-8.3); Neutrophils Percent Auto 51.1 % (45-73); Platelet Count 196 X10*3/uL (160-400); Red Blood Count 4.24 X10*6/uL (4.60-5.80); Red Cell Distribution Width 12.3 % (11.0-16.0); White Blood Count 7.2 X10*3/uL (4.8-10.8)
[2024-01-02 11:20] LABS: Alanine Aminotransferase 60 U/L (0-40); Albumin Level 4.5 g/dL (3.5-5.0); Alkaline Phosphatase 119 U/L (39-117); Anion Gap 14 (12-20); Aspartate Amino Transferase 64 U/L (5-37); Bilirubin Total 1.2 mg/dL (0.0-1.0); Blood Urea Nitrogen 14 mg/dL (9-16); Calcium 9.7 mg/dL (8.4-10.2); Carbon Dioxide 26 mmol/L (22-29); Chloride 107 mmol/L (96-108); Cholesterol 196 mg/dL (<200); Estimated Glomerular Filt Rate > 60; Glucose Fasting 122 mg/dL (60-99); HDL Cholesterol 41 mg/dL (>40); LDL Cholesterol Calculated 120 mg/dL (<100); Potassium 3.6 mmol/L (3.3-5.1); Sodium 143 mmol/L (135-145); Total Protein 7.6 g/dL (6.5-8.0); Triglycerides 178 mg/dL (<150); Uric Acid 7.6 mg/dL (3.4-7.0)
== END 2024-01-02 09:29 | disposition home or self-care (01) ==
LOC: HO.LAB 09:28
PROVIDERS: Visit Provider Internal Medicine
DX: E78.5 Hyperlipidemia, unspecified (principal); D64.9 Anemia, unspecified; M10.9 Gout, unspecified; N28.9 Disorder of kidney and ureter, unspecified
CPT/HCPCS: 36415; 80053; 80061; 84550; 85025

== ENCOUNTER 2024-01-03 14:03 | Outpatient (AMB) | payer BC, SELFPAY ==
[2024-01-03 14:04] VITALS: BP 124/60; PULSE 85; O2SAT 96; BMI 28.9
--- NOTE | 2024-01-03 14:04 | A.OFFPC_ITS ---
Vital Signs 01/03/24 14:04 Height 5 ft 9 in Weight 196 lb BMI 28.9 BP 124/60 Blood Pressure Location Lt brachial Position Sitting Pulse 85 Pulse Source Pulse Oximeter Pulse Oximetry (%) 96 Oxygen Delivery Method Room Air Intake Visit Reasons: 3mth f/u Allergies No Known Allergies Allergy (Verified 10/04/23 14:05) Tobacco use date assessed: 01/03/24 Fall risk assessment: No Falls in past year Last assessed Fall Risk: 01/03/24 Dental Screening Dental Screen Date: 01/03/24 Did you have a dental visit in the last 12 months?: Yes Did you have a dental problem in the last 6 months where you did not have access to dental care?: No Was dental information given to patient?: Patient has dentist HPI 3mth f/u HPI Details HTN on Rx; doing well; compliant [facility] Medical History Asthma Hypertension Surgical History History of laser refractive surgery History of cholecystectomy History of vasectomy Family History Father Gout Diabetes Hypertension Past heart attack Mother Diabetes Colon cancer Sister No problems noted. Sister No problems noted. Son No problems noted. Son No problems noted. Social History Housing: House Alcohol intake: current Alcohol intake frequency: 0-2 drinks per day Alcohol type: wine Patient Tobacco Use Status: Never used Tobacco e-Cigarette/Vaping Use: Never Used Second Hand Smoke Exposure: No service: No Current occupational status: retired Cognitive needs: No Hearing needs: No Vision needs: Yes (glasses ) Questionnaire PHQ-9 Over the last 2 weeks, how often have you been bothered by any of the following problems? 1. Little interest or pleasure in doing things: not at all 2. Feeling down, depressed, or hopeless: not at all 3. Trouble falling or staying asleep, or sleeping too much: not at all 4. Feeling tired or having little energy: not at all 5. Poor appetite or overeating: not at all 6. Feeling bad about yourself - or that you are a failure or have let yourself or your family down: not at all 7. Trouble concentrating on things, such as reading the newspaper or watching television: not at all 8. Moving or speaking so slowly that other people could have noticed. Or the opposite - being so fidgety or restless that you have been moving around a lot more than usual: not at all 9. Thoughts that you would be better off or of hurting yourself in some way: not at all Total score: 0 Depression Screening Interpretation: Negative Depression Screening Done: Yes 16652 - PHQ-9 Billing: Yes Source: Developed by Drs. Pedro Ibarra, Janice Moya, Randall Romo and colleagues, with an educational cintia from [employer]. Thrive Questionnaire Date Thrive assessed: 01/03/24 I am a: Patient What is your living situation today?: I have a steady place to live Within the past 12 months, did the food you bought not last and you didn't have the money to get more?: Never true Within the past 12 months, did you worry whether your food would run out before you got money to buy more?: Never true Do you have trouble paying for medicines?: No Do you have trouble getting transportation to medical appointments?: No Do you have trouble paying your heating and electricity bill?: No Do you have trouble taking care of your child, family member or friend?: No Do you have trouble with day-to-day activities such as bathing, preparing meals, shopping, managing finances, etc.?: No Are you currently unemployed and looking for a job?: No Are you interested in more education?: No Please select the resources that you would like help with: None THRIVE Score: 0 AUDIT C Alcohol Use Questionnaire (AUDIT-C) 1. How often do you have a drink containing alcohol?: 4 or more times a week 2. How many drinks containing alcohol do you have on a typical day when you are drinking?: 1 or 2 3. How often do you have six or more drinks on one occasion?: Never Total Score: 4 Score Reviewed/Action Taken: Yes LEYDI-7 AMB Questionnaire LEYDI-7 Date LEYDI - 7 assessed: 01/03/24 Feeling nervous, anxious, or on edge: 0 = Not at all Not being able to stop or control worryin = Not at all Worrying too much about different things: 0 = Not at all Trouble relaxin = Not at all Being so restless that it is hard to sit still: 0 = Not at all Becoming easily annoyed or irritable: 0 = Not at all Feeling afraid as if something awful might happen: 0 = Not at all Total LEYDI-7 score (0-4 normal; 5-9 mild; 10-14 moderate; 15-21 severe): 0 Source: Developed by Drs. Pedro Ibarra, Janice Moya, Randall Romo and colleagues, with an educational cintia from [employer]. Review of Systems Const Denies chills, Denies headache(s) and Denies weight loss ENT Denies headache(s) Card Denies chest pain, Denies syncope, Denies irregular heart rhythm and Denies dyspnea Resp Denies chest congestion, Denies cough and Denies dyspnea GI Denies abdominal pain, Denies change in stool character, Denies nausea and Denies vomiting Musc Denies deformity and Denies joint swelling Neuro Denies syncope and Denies headache(s) Physical exam (Primary Care) Vital Signs: Last Vital Signs Pulse 85 01/03/24 14:04 BP 124/60 01/03/24 14:04 Pulse Ox 96 01/03/24 14:04 Oxygen Delivery Method Room Air 01/03/24 14:04 BMI result Body Mass Index 28.9 Tobacco/Smoking Status: Tobacco use Status Tobacco use date assessed 01/03/24 01/03/24 14:09 Patient Tobacco Use Status Never used Tobacco 01/03/24 14:09 e-Cigarette/Vaping Use Never Used 01/03/24 14:09 PHQ-9: PHQ-9 Score PHQ-9: Total score 0 01/03/24 14:09 Depression Screening Interpretation: Negative Thrive Assessment: Date of Thrive Assessment Date Thrive assessed 01/03/24 01/03/24 14:09 Const General: cooperative, comfortable, no acute distress and alert Neck Neck: Yes no lymphadenopathy Thyroid: Thyroid normal Resp Effort & Inspection: normal respiratory effort Auscultation: clear to auscultation bilaterally Percussion: percussion normal Cardio Jugular venous distension: no JVD Palpation: normal PMI Rate: regular rate Rhythm: regular rhythm Heart sounds: S1 normal heart sound present and S2 normal heart sound present GI Inspection: Yes normal to inspection Palpation (GI): No hepatosplenomegaly present Skin General skin exam: no rashes or lesions noted Extrem General: Yes no clubbing, cyanosis or edema Assessment and Plan Assessment & Plan (1) Hypertension: Code(s): I10 - Essential (primary) hypertension Plan: stable; same rx Orders: Orders ECG 12 lead EKG 01/03/24 R07.9 - Chest pain, unspecified Lipid Panel 01/03/24 E78.5 - Hyperlipidemia, unspecified Thyroid Stimulating Hormone 01/03/24 E03.9 - Hypothyroidism, unspecified CA stress test 01/03/24 Complete Blood Count Auto Diff 01/03/24 D64.9 - Anemia, unspecified Comprehensive [place]. Panel Fast 01/03/24 N28.9 - Disorder of kidney and ureter, unspecified Referrals Cardiology Referral R07.9 - Chest pain, unspecified Coding Level of Care Code Est Pt Level 3 (56436) Diagnoses Hypertension I10
== END 2024-01-03 14:20 | disposition home or self-care (01) ==
PROVIDERS: PCP Internal Medicine; Visit Provider Internal Medicine
DX: I10 Essential (primary) hypertension (principal)
CPT/HCPCS: 99213

== ENCOUNTER → 2024-01-03 14:31 | Outpatient (REF) | payer BC, SELFPAY ==
--- NOTE | 2024-01-03 14:36 | ECG_ITS ---
Test Reason : chest pain Blood Pressure : / mmHG Vent. Rate : 075 BPM Atrial Rate : 075 BPM P-R Int : 152 ms QRS Dur : 088 ms QT Int : 360 ms P-R-T Axes : 016 041 033 degrees QTc Int : 402 ms Normal sinus rhythm Normal ECG No previous ECGs available Referred By: Wood Lamar Electronically Signed By:AUSTIN WALTERS MD
== END ==
LOC: HO.CARD 14:31
PROVIDERS: PCP Internal Medicine; Visit Provider Internal Medicine
DX: R07.9 Chest pain, unspecified (principal)
CPT/HCPCS: 93005

== ENCOUNTER → 2024-01-03 14:36 | Outpatient (BNV) | payer BC, SELFPAY | PROVIDERS: PCP Internal Medicine; Visit Provider Internal Medicine Cardiovascular Disease | DX: R07.9 Chest pain, unspecified (principal) | CPT/HCPCS: 93010 ==

== ENCOUNTER → 2024-01-14 09:57 | Outpatient (REF) | payer BC, SELFPAY ==
--- NOTE | 2024-01-14 10:00 | CA_ITS ---
Acquisition Time: 2024-01-14 10:06:19 Total Exercise Time: 00:05:00 Test Indications: HTN Medications: SEE H Protocol: ORIANA Max HR: 144 BPM 94% of Pred: 152 BPM Max BP: 164/058 mmHG Max Work Load: 6.1 METS Exercise stress test exercise 5 min of Oriana protocol (stage 2 manual increase - reached 85% by 2 min 20 sec) achieving 94% MPHR, with mild to moderate SOB, no chest discomfort, with report of mild dizziness without arrhythmias, with resting HTN, normotensive response to exercise, without EKG changes. Breathing and dizziness returned to normal with rest. Test reviewed with Dr. Torres. Referred By: Wood Lamar Overread By: Ivelisse Gupta
== END ==
LOC: HO.CARD 09:57
PROVIDERS: PCP Internal Medicine; Visit Provider Internal Medicine
DX: I10 Essential (primary) hypertension (principal)
CPT/HCPCS: 93017

== ENCOUNTER → 2024-01-14 10:00 | Outpatient (BNV) | payer BC, SELFPAY | PROVIDERS: PCP Internal Medicine; Visit Provider Nurse Practitioner | DX: I10 Essential (primary) hypertension (principal) | CPT/HCPCS: 93016; 93018 ==

== ENCOUNTER 2024-01-16 11:00 | Outpatient (REF) | payer BC, SELFPAY | END 2024-01-16 11:01 | disposition home or self-care (01) | LOC: HO.BBR 11:00 | PROVIDERS: PCP Internal Medicine; Visit Provider Internal Medicine | DX: E83.19 Other disorders of iron metabolism (principal) | CPT/HCPCS: 85014; 85018; 99195 ==

== ENCOUNTER 2024-01-24 09:30 | Outpatient (REF) | payer BC, SELFPAY ==
[2024-01-24 09:49] LABS: MANUAL DIFF FLAG NO
[2024-01-24 10:41] LABS: Basophils Absolute Auto 0.1 X10*3/uL (0.0-0.2); Basophils Percent Auto 0.9 % (0-2); Eosinophils Absolute Auto 0.5 X10*3/uL (0.0-0.4); Eosinophils Percent Auto 7.6 % (0-4); Hematocrit 42.4 % (42.0-52.0); Hemoglobin 14.8 g/dl (14.0-18.0); Imm Gran Abs Auto 0.02 X10*3/uL (0.00-0.03); Imm Gran Pct Auto 0.3 % (0.0-0.4); Lymphocytes Absolute Auto 1.6 X10*3/uL (1.2-4.9); Lymphocytes Percent Auto 23.8 % (20-40); Mean Corpuscular HGB Conc 34.9 g/dl (31.0-36.0); Mean Corpuscular Hemoglobin 35.4 pg (27.0-33.0); Mean Corpuscular Volume 101.4 fL (80.0-98.0); Mean Platelet Volume 10.1 fL (9.4-12.4); Monocytes Absolute Auto 0.8 X10*3/uL (0.1-1.2); Monocytes Percent Auto 11.8 % (2-11); Neutrophils Absolute Auto 3.7 x10*3/uL (2.0-8.3); Neutrophils Percent Auto 55.6 % (45-73); Platelet Count 194 X10*3/uL (160-400); Red Blood Count 4.18 X10*6/uL (4.60-5.80); Red Cell Distribution Width 12.1 % (11.0-16.0); White Blood Count 6.6 X10*3/uL (4.8-10.8)
[2024-01-24 11:46] LABS: Alanine Aminotransferase 68 U/L (0-40); Albumin Level 4.4 g/dL (3.5-5.0); Alkaline Phosphatase 107 U/L (39-117); Anion Gap 15 (12-20); Aspartate Amino Transferase 71 U/L (5-37); Bilirubin Total 1.4 mg/dL (0.0-1.0); Blood Urea Nitrogen 11 mg/dL (9-16); Calcium 9.5 mg/dL (8.4-10.2); Carbon Dioxide 26 mmol/L (22-29); Chloride 105 mmol/L (96-108); Cholesterol 196 mg/dL (<200); Estimated Glomerular Filt Rate > 60; Glucose Fasting 122 mg/dL (60-99); HDL Cholesterol 42 mg/dL (>40); LDL Cholesterol Calculated 116 mg/dL (<100); Potassium 3.3 mmol/L (3.3-5.1); Sodium 143 mmol/L (135-145); Total Protein 7.8 g/dL (6.5-8.0); Triglycerides 193 mg/dL (<150)
[2024-01-24 11:51] LABS: Thyroid Stimulating Hormone 4.62 uIU/mL (0.32-4.0)
== END 2024-01-24 09:31 | disposition home or self-care (01) ==
LOC: HO.LAB 09:30
PROVIDERS: PCP Internal Medicine; Visit Provider Internal Medicine
DX: N28.9 Disorder of kidney and ureter, unspecified (principal); E03.9 Hypothyroidism, unspecified; D64.9 Anemia, unspecified; E78.5 Hyperlipidemia, unspecified
CPT/HCPCS: 36415; 80053; 80061; 84443; 85025

== ENCOUNTER 2024-02-17 10:54 | Outpatient (REF) | payer BC, SELFPAY | END 2024-02-17 10:55 | disposition home or self-care (01) | LOC: HO.BBR 10:54 | PROVIDERS: PCP Internal Medicine; Visit Provider Internal Medicine | DX: E83.19 Other disorders of iron metabolism (principal) | CPT/HCPCS: 85018; 99195 ==

== ENCOUNTER 2024-03-03 09:11 | Outpatient (REF) | payer BC, SELFPAY ==
--- NOTE | ~2024-03-03 | US_ITS ---
EXAMINATION: US COMPLETE ABDOMEN WITH LIVER ELASTOGRAPHY CLINICAL INFORMATION: Hepatic fibrosis, fatty liver and elevated liver function tests. COMPARISON: None available. TECHNIQUE: Real-time imaging of the abdominal viscera. Noninvasive ultrasound liver fibrosis assessment is performed using Андрей Elast[employer] point quantification shear wave elastography (2D-SWE) with a C5-2 MHz transducer. Multiple elastography samples are obtained. FINDINGS: PANCREAS: Normal. The visualized pancreatic head and body are normal in appearance. The remainder of the pancreas is obscured from visualization by the overlying bowel gas. ABDOMINAL AORTA: The proximal, middle, and distal aortic segments are normal in caliber. INFERIOR VENA CAVA: Visualized portions are normal. LIVER: The liver demonstrates normal size, contour and increased echogenicity. No focal lesion or intrahepatic biliary duct dilatation. The right lobe measures 13.8 cm in length. The left lobe measures 9.1 cm in length. Portal flow is towards the liver (hepatopetal). Shear wave liver elastography median stiffness is 2.77 m/s (reference: normal median stiffness is 1.3 m/s or less). IQR/median stiffness to assess sampling precision is 0.05 (reference: good quality data set is IQR/median stiffness of 0.15 or less). GALLBLADDER: Normal. The gallbladder is physiologically distended without evidence of stones, sludge, polyps, wall thickening or pericholecystic fluid. COMMON BILE DUCT: Normal in caliber measuring 0.3 cm in diameter. RIGHT KIDNEY: Normal. No hydronephrosis. No renal calculi or focal parenchymal lesions. The kidney measures 12.0 cm in maximum dimension. LEFT KIDNEY: There is mild pelviectasis, without magaly hydronephrosis. No renal calculi or focal parenchymal lesions. The kidney measures 11.2 cm in maximum dimension. SPLEEN: Normal. The spleen measures 8.9 cm in maximum dimension. FREE FLUID: None. US/US abdomen comp w elastography IMPRESSION: 1. There is generalized increase in hepatic echotexture, consistent with fatty infiltration or hepatocellular disease. Please correlate clinically. No focal hepatic mass or intrahepatic biliary dilatation is seen. 2. Liver elastography: Measurements are suggestive of clinically significant portal hypertension. When compared with prior exam, there is a statistically significant increase in liver stiffness (increase at least 10%). REFERENCE: Society of Radiologists in Ultrasound Liver Stiffness Thresholds (2020): LIVER STIFFNESS THRESHOLDS: *Liver Stiffness equal or less than 1.3 m/s: High probability of being normal. *Liver Stiffness less than 1.7 m/s: In the absence of other known clinical signs, rules out compensated advanced chronic liver disease. *Liver Stiffness 1.7-2.1 m/s: Suggestive of compensated advanced chronic liver disease but need further test for confirmation. *Liver Stiffness over 2.1 m/s: Rules in compensated advanced chronic liver disease. *Liver Stiffness over 2.4 m/s: Suggestive of clinically significant portal hypertension. QUALITY OF DATA SET: *IQR/Median value equal or less than 0.15 implies a quality data set. *IQR/Median value over 0.15 implies a poor quality data set. SIGNIFICANT CHANGE FROM PRIOR EXAM: Significant change if liver stiffness measurement is 10% or greater from prior exam. OTHER CONSIDERATIONS: The stage of liver fibrosis may be overestimated in the setting of acute hepatitis, liver inflammation, elevated liver function tests, hepatic vascular congestion, obstructive cholestasis, non-fasting state, and infiltrative diseases such as amyloidosis and lymphoma. In some patients with NAFLD, the liver stiffness thresholds for compensated advanced chronic liver disease may be lower. In causes other than viral hepatitis and NAFLD, liver stiffness thresholds are not well established.
== END 2024-03-03 09:12 | disposition home or self-care (01) ==
LOC: HO.US 09:11
PROVIDERS: PCP Internal Medicine; Visit Provider Internal Medicine
DX: K74.00 Hepatic fibrosis, unspecified (principal); K76.0 Fatty (change of) liver, not elsewhere classified
CPT/HCPCS: 76700; 76981

== ENCOUNTER 2024-04-06 10:23 | Outpatient (AMB) | payer BC, SELFPAY ==
[2024-04-06 10:24] VITALS: BP 120/70; PULSE 70; BMI 28.8
--- NOTE | 2024-04-06 10:24 | MHC.PC.OV ---
Vital Signs 04/06/24 10:24 Height 5 ft 9 in Weight 195 lb BMI 28.8 BP 120/70 Blood Pressure Location Lt brachial Position Sitting Pulse 70 Pulse Source Pulse Oximeter Oxygen Delivery Method Room Air Intake Visit Reasons: 3mth f/u Pathologist Required: No Solar Tech: Not Required per policy Accompanied by: Self / Same As Patient Allergies No Known Allergies Allergy (Verified 10/04/23 14:05) Medication List - Last Reconciled 04/06/24 by Wood Lamar MD atenolol 100 mg PO DAILY losartan 100 mg PO DAILY methylprednisolone (Medrol (Alden)) PO PER PKG DIR nifedipine ER 60 mg PO DAILY Tobacco use date assessed: 01/03/24 Fall risk assessment: No Falls in past year Last assessed Fall Risk: 04/06/24 Dental Screening Dental Screen Date: 01/03/24 HPI 3mth f/u HPI Details HTN on rx; doing well and compliant [facility] Medical History Asthma Hypertension Surgical History History of laser refractive surgery History of cholecystectomy History of vasectomy Family History Father Gout Diabetes Hypertension Past heart attack Mother Diabetes Colon cancer Sister No problems noted. Sister No problems noted. Son No problems noted. Son No problems noted. Social History Housing: House Alcohol intake: current Alcohol intake frequency: 0-2 drinks per day Alcohol type: wine Patient Tobacco Use Status: Never used Tobacco e-Cigarette/Vaping Use: Never Used Second Hand Smoke Exposure: No service: No Current occupational status: retired Cognitive needs: No Hearing needs: No Vision needs: Yes (glasses ) Questionnaire Thrive Questionnaire Date Thrive assessed: 01/03/24 LEYDI-7 AMB Questionnaire LEYDI-7 Date LEYDI - 7 assessed: 01/03/24 Source: Developed by Drs. Pedro Ibarra, Janice Moya, Randall Rmoo and colleagues, with an educational cintia from [employer] Review of Systems Const Denies chills, Denies headache(s) and Denies weight loss ENT Denies headache(s) Card Denies chest pain, Denies syncope, Denies irregular heart rhythm and Denies dyspnea Resp Denies chest congestion, Denies cough and Denies dyspnea GI Denies abdominal pain, Denies change in stool character, Denies nausea and Denies vomiting Musc Denies deformity and Denies joint swelling Neuro Denies syncope and Denies headache(s) Physical exam (Primary Care) Vital Signs: Last Vital Signs Pulse 70 04/06/24 10:24 BP 120/70 04/06/24 10:24 Oxygen Delivery Method Room Air 04/06/24 10:24 BMI result Body Mass Index 28.8 Tobacco/Smoking Status: Tobacco use Status Tobacco use date assessed 01/03/24 04/06/24 10:25 Patient Tobacco Use Status Never used Tobacco 04/06/24 10:25 e-Cigarette/Vaping Use Never Used 04/06/24 10:25 Thrive Assessment: Date of Thrive Assessment Date Thrive assessed 01/03/24 04/06/24 10:25 Const General: cooperative, comfortable, no acute distress and alert Neck Neck: Yes no lymphadenopathy Thyroid: Thyroid normal Resp Effort & Inspection: normal respiratory effort Auscultation: clear to auscultation bilaterally Percussion: percussion normal Cardio Jugular venous distension: no JVD Palpation: normal PMI Rate: regular rate Rhythm: regular rhythm Heart sounds: S1 normal heart sound present and S2 normal heart sound present GI Inspection: Yes normal to inspection Palpation (GI): No hepatosplenomegaly present Skin General skin exam: no rashes or lesions noted Extrem General: Yes no clubbing, cyanosis or edema Assessment and Plan Assessment & Plan (1) Hypertension: Code(s): I10 - Essential (primary) hypertension Plan: stable; same rx Orders: Orders Lipid Panel Today Z13.220 - Encounter for screening for lipoid disorders Hemoglobin A1c Today R73.9 - Hyperglycemia, unspecified Complete Blood Count Auto Diff Today Z13.0 - Encounter for screening for diseases of the blood and blood-forming organs and certain disorders involving the immune mechanism Comprehensive [place]. Panel Fast Today Z13.9 - Encounter for screening, unspecified Coding Level of Care Code Est Pt Level 3 (07966) Diagnoses Hypertension I10
== END 2024-04-06 10:49 | disposition home or self-care (01) ==
PROVIDERS: PCP Internal Medicine; Visit Provider Internal Medicine
DX: I10 Essential (primary) hypertension (principal)
CPT/HCPCS: 99213

== ENCOUNTER 2024-04-06 12:43 | Outpatient (AMB) | payer BC, SELFPAY ==
[2024-04-06 12:53] VITALS: BP 120/64; PULSE 65; BMI 28.6
--- NOTE | 2024-04-06 12:53 | A.OFFVIS_ITS ---
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 Few months back, he was walking outdoors and at that time, he felt very tired. Subsequently, had some discomfort/pressure in the chest. That lasted for some time and then resolved completely. However, he has been active after that but did not get the same symptoms again. Hence isolated episode. He underwent an exercise stress test which was unremarkable. He has been referred for further evaluation of possible coronary disease. Patient himself does not have any previous cardiac history. He has hypertension on medications. [facility] Medical History Asthma Hypertension Surgical History History of laser refractive surgery History of cholecystectomy History of vasectomy Family History Father Gout Diabetes Hypertension Past heart attack Mother Diabetes Colon cancer Sister No problems noted. Sister No problems noted. Son No problems noted. Son No problems noted. Social History Housing: House Alcohol intake: current Alcohol intake frequency: 0-2 drinks per day Alcohol type: wine Patient Tobacco Use Status: Never used Tobacco e-Cigarette/Vaping Use: Never Used Second Hand Smoke Exposure: No service: No Current occupational status: retired Cognitive needs: No Hearing needs: No Vision needs: Yes (glasses ) Review of Systems Const Denies weakness ENT Denies dizziness Card Denies chest pain, Denies chest pain with activity, Denies syncope, Denies rapid heart rate, Denies pedal edema, Denies edema, Denies leg edema, Denies lightheadedness, Denies palpitations, Denies dyspnea, Denies dyspnea on exertion and Denies orthopnea Resp Denies cough, Denies dyspnea and Denies dyspnea on exertion GI Denies hematochezia and Denies change in stool character Musc Denies abnormal gait, Denies muscle cramps, Denies muscle weakness, Denies numbness, Denies radiating pain into limb and Denies tingling Neuro Denies abnormal gait, Denies dizziness, Denies syncope, Denies numbness, Denies tingling and Denies weakness Endo Denies palpitations Physical Exam Vital Signs: Last Vital Signs Pulse 65 04/06/24 12:53 BP 120/64 04/06/24 12:53 BMI result Body Mass Index 28.6 Const General: comfortable and no acute distress Orientation/consciousness: patient oriented x3 HEENT Other: Unremarkable Head: Yes normal to inspection Neck Neck: Yes normal visual inspection Chest Chest palpation & inspection: normal inspection of the chest Resp Auscultation: clear to auscultation bilaterally Cardio Palpation: normal PMI Heart sounds: S1 normal heart sound present, S2 normal heart sound present, no gallops, no murmurs and no rubs GI Palpation (GI): Soft to palpation Back/Spine/Pelvis Other: unremarkable Skin General skin exam: no rashes or lesions noted Neuro General: patient oriented x3 Extrem General: Yes normal to inspection Psych Mental Status: mental status grossly normal Assessment & Plan Assessment & Plan (1) Exertional chest pain: Code(s): R07.9 - Chest pain, unspecified Category: Medical Plan In the baseline EKG, underlying rhythm is sinus at a rate of 75/Min; no significant ST-T changes and otherwise unremarkable. Normal SD and corrected QT. He underwent an exercise stress test. Reached 6.1 Mets on Qasim protocol, reached target heart rate, no angina but had fatigue and shortness of breath. In the EKGs, there is some horizontal appearing ST depression in the recovery part but otherwise upsloping STs. Overall, inconclusive per my evaluation. At his age and with history of high blood pressure on numerous meds, recommend further workup with coronary CTA for further evaluation. We will also get an echocardiogram for any LV dysfunction/wall motion findings. Plan discussed with patient as well as significant other. They agree. In the interim, avoid any strenuous physical activity. If any recurrent symptoms, advised him to contact us immediately. They understand. Follow-up after the testing. Orders: Orders CA echo transthoracic complete Today R07.9 - Chest pain, unspecified Basic Metabolic Panel Today R07.9 - Chest pain, unspecified CT Cardiac Coronary Angio Today I25.10 - Atherosclerotic heart disease of [place] coronary artery without angina pectoris, R07.9 - Chest pain, unspecified Coding Level of Care Code New Pt Level 4 (10536) Diagnoses Exertional chest pain R07.9
== END 2024-04-06 13:24 | disposition home or self-care (01) ==
PROVIDERS: PCP Internal Medicine; Visit Provider Internal Medicine
DX: R07.9 Chest pain, unspecified (principal)
CPT/HCPCS: 99204

== ENCOUNTER → 2024-04-06 12:43 | Outpatient (BNVA) | payer BC, SELFPAY | PROVIDERS: PCP Internal Medicine; Visit Provider Internal Medicine ==

== ENCOUNTER 2024-04-14 11:01 | Outpatient (REF) | payer BC, SELFPAY | END 2024-04-14 11:02 | disposition home or self-care (01) | LOC: HO.BBR 11:01 | PROVIDERS: PCP Internal Medicine; Visit Provider Internal Medicine | DX: E83.19 Other disorders of iron metabolism (principal) | CPT/HCPCS: 85014; 85018; 99195 ==

== ENCOUNTER → 2024-04-21 12:52 | Outpatient (REF) | payer BC, SELFPAY ==
--- NOTE | 2024-04-21 12:54 | CA_ITS ---
Transthoracic Echocardiogram Patient (Last, First, Middle): Kurt Thacker, Gender: Male Date of : 1955 Age: 68 Procedure Date: 04/21/2024 Procedure Type: Transthoracic Echocardiogram Location: OP Height: 175.26 cm Weight: 88. kg BSA: 2.04 m2 Heart Rate: 78 bpm BP: 155 / 75 mmHg Consumer Experience Consultant: JATINDER Referring MD: Eric Mitchell MD Symptoms: R07.9 - Chest pain, unspecified Study Quality: Adequate ECG Rhythm: Sinus Conclusions: - The left ventricular systolic function is normal. The calculated ejection fraction is 61% by biplane method. - The inferoseptal wall, the basal inferior, and mid inferior segments are hypokinetic. - No obvious valvular pathology seen on this study. Findings Left Ventricle Normal left ventricular cavity size. There is normal left ventricular wall thickness. The left ventricular systolic function is normal. The calculated ejection fraction is 61% by biplane method. Diastolic function is normal for age. LV peak GLS -21%. Wall Motion Rest Echo Findings The inferoseptal wall, the basal inferior, and mid inferior segments are hypokinetic. Right Ventricle Normal right ventricular cavity size and systolic function. Atria Both atria are normal in size. Aortic Valve There is a normal trileaflet aortic valve. There is no aortic valve stenosis. There is no aortic valve regurgitation. Mitral Valve The mitral valve appears normal. There is no mitral valve regurgitation. There is no mitral valve stenosis. Pulmonic Valve The pulmonic valve is likely normal. Tricuspid Valve Normal tricuspid valve structure. There is trace tricuspid valve regurgitation. There is no evidence of pulmonary hypertension. Great Vessels The asc aorta is normal in size. Venous The inferior vena cava is normal in size and collapses greater than 50% with inspiration. Pericardium/Pleural There is a trivial pericardial effusion. Prior Study Comparison No prior study available for comparison. Recommendations, Care & Conclusions No obvious valvular pathology seen on this study. Measurements 2D Linear Measurements IVSd: 0.84 0.6-0.9/0.6-1.0 cm LVIDd: 4.79 3.9-5.3/4.2-5.9 cm LVIDd Index: 2.35 2.4-3.2/2.2-3.1 cm/m2 LVIDs: 2.65 2.0-3.6 cm LVPWd: 0.99 0.7-1.1 cm LA Diam: 3.40 2.7-3.8/3.0-4.0 cm LAIDs Index: 1.67 1.5-2.3 cm/m2 LV Mass: 187.29 67-162/88-224 g LV Mass Index: 91.81 43-95/49-115 g/m2 LVOT Diam: 2.00 3.0+(-)1.3 cm 2D Systolic Function EF 4C: 60.50 >55% EF 2C: 65.90 >55% EF BiP: 61.00 >55% Mitral Valve MV Pk E: 0.97 MV PK A: 0.91 MV Decel Time: 198.00 E/A: 1.10 E'Lateral: 9.03 E'Medial: 8.59 E/E' Med: 11.30 E/E' Lat: 10.70 PHT: 58.00 MVA PHT: 3.79 Decel [place]: 4.88 Aortic Valve AoV Pk Zhang: 1.70 AoV Mn Zhang: 1.21 AoV VTI: 0.36 AoV Pk Grad: 12.00 Aov Mn Grad: 7.00 FABIENNE Cont.VTI: 2.37 LVOT LVOT Pk Zhang: 1.40 LVOT Mn Zhang: 0.92 LVOT VTI: 0.27 LVOT Pk Grad: 8.00 LVOT Mn Grad: 4.00 LVOT Diam: 2.00 LVOT Area: 3.14 Diastolic Function MV Pk E: 0.97 MV Pk A: 0.91 E/A: 1.10 E'Medial: 8.59 E/E' Med: 11.30 E' Laterial: 9.03 E/E' Lat: 10.70 Right Ventricle TAPSE (mm): 26.70 TVS' Zhang: 16.40 Tricuspid Valve TR Pk Zhang: 2.70 TR Pk Grad: 29.00 RA Press: 3.00 RVSP: 32.00 Great Vessels Aorta Sinus of Valsalva: 3.60 2.0-3.5 cm Ao Asc: 3.80 2.1-3.4 cm Pulmonary Valve PV Pk Zhang: 1.28 Peak PV Grad: 7.00 Updated in Other Vendor System with Status of Final Eric Mitchell MD electronically signed on 04/23/2024 12:34:23 PM with status of Final
== END ==
LOC: HO.CARD 12:52
PROVIDERS: PCP Internal Medicine; Visit Provider Internal Medicine
DX: R07.9 Chest pain, unspecified (principal)
CPT/HCPCS: 93306; 93356

== ENCOUNTER → 2024-04-21 12:54 | Outpatient (BNV) | payer BC, SELFPAY | PROVIDERS: PCP Internal Medicine; Visit Provider Internal Medicine | DX: I51.89 Other ill-defined heart diseases (principal); R07.9 Chest pain, unspecified | CPT/HCPCS: 93306; 93356 ==

== ENCOUNTER 2024-05-25 09:59 | Outpatient (AMB) | payer BC, SELFPAY ==
[2024-05-25 10:11] VITALS: BP 120/70; PULSE 66; BMI 28.6
--- NOTE | 2024-05-25 10:11 | MHC.OFFVIS ---
Vital Signs 05/25/24 10:11 Height 5 ft 9 in Weight 194 lb 0.108 oz BMI 28.6 BP 120/70 Blood Pressure Location Lt brachial Position Sitting Pulse 66 Pulse Source Pulse Oximeter Intake Visit Reasons: Follow up CTA Allergies Seasonal Allergies Allergy (Mild, Verified 04/06/24 12:57) Sneezing Medication List - Last Reconciled 05/25/24 by Eric Mitchell MD aspirin 81 mg PO DAILY atenolol 100 mg PO DAILY atorvastatin 40 mg PO QPM losartan 100 mg PO DAILY nifedipine ER 60 mg PO DAILY HPI Comments Details: Kurt returns for follow-up. In the past, he was seen regarding chest discomfort. Few months back, he was walking and at that time, had tiredness and a discomfort in the chest. Then resolved completely never had a similar episode. Subsequently, he underwent further workup with a stress test as well as coronary CTA. He states he feels absolutely fine. He does not have any recurrent chest pains or any cardiac symptoms. Hypertensive on medications. [facility] Medical History Asthma Hypertension Surgical History History of laser refractive surgery History of cholecystectomy History of vasectomy Family History Father Gout Diabetes Hypertension Past heart attack Mother Diabetes Colon cancer Sister No problems noted. Sister No problems noted. Son No problems noted. Son No problems noted. Social History Housing: House Alcohol intake: current Alcohol intake frequency: 0-2 drinks per day Alcohol type: wine Patient Tobacco Use Status: Never used Tobacco e-Cigarette/Vaping Use: Never Used Second Hand Smoke Exposure: No service: No Current occupational status: retired Cognitive needs: No Hearing needs: No Vision needs: Yes (glasses ) Review of Systems Const Denies weakness ENT Denies dizziness Card Denies chest pain, Denies chest pain with activity, Denies syncope, Denies rapid heart rate, Denies pedal edema, Denies edema, Denies leg edema, Denies lightheadedness, Denies palpitations, Denies dyspnea, Denies dyspnea on exertion and Denies orthopnea Resp Denies cough, Denies dyspnea and Denies dyspnea on exertion GI Denies hematochezia and Denies change in stool character Musc Denies abnormal gait, Denies muscle cramps, Denies muscle weakness, Denies numbness, Denies radiating pain into limb and Denies tingling Neuro Denies abnormal gait, Denies dizziness, Denies syncope, Denies numbness, Denies tingling and Denies weakness Endo Denies palpitations Physical Exam Vital Signs: Last Vital Signs Pulse 66 05/25/24 10:11 BP 120/70 05/25/24 10:11 BMI result Body Mass Index 28.6 Const General: comfortable and no acute distress Orientation/consciousness: patient oriented x3 HEENT Other: Unremarkable Head: Yes normal to inspection Neck Neck: Yes normal visual inspection Chest Chest palpation & inspection: normal inspection of the chest Resp Auscultation: clear to auscultation bilaterally Cardio Palpation: normal PMI Heart sounds: S1 normal heart sound present, S2 normal heart sound present, no gallops, no murmurs and no rubs GI Palpation (GI): Soft to palpation Back/Spine/Pelvis Other: unremarkable Skin General skin exam: no rashes or lesions noted Neuro General: patient oriented x3 Extrem General: Yes normal to inspection Psych Mental Status: mental status grossly normal Assessment & Plan Assessment & Plan (1) Atherosclerotic cardiovascular disease: Code(s): I25.10 - Atherosclerotic heart disease of [place] coronary artery without angina pectoris Category: Medical (2) Hypertension: Code(s): I10 - Essential (primary) hypertension Category: Medical Qualifiers: Hypertension type: primary hypertension Qualified Code(s): I10 - Essential (primary) hypertension Plan Cardiac studies reviewed. In the baseline EKG, underlying rhythm is sinus at a rate of 75/Min; no significant ST-T changes and otherwise unremarkable. Normal IA and corrected QT. He underwent an exercise stress test. Reached 6.1 Mets on Qasim protocol, reached target heart rate, no angina but had fatigue and shortness of breath. In the EKGs, there is some horizontal appearing ST depression in the recovery part but otherwise upsloping STs. Overall, inconclusive per my evaluation. In the echocardiogram, LVEF 61%. Inferoseptal wall, basal inferior and mid inferior segments hypokinetic (unclear if some of this could be artifactual). In the coronary CTA, moderate, 50-60% stenosis in the distal aspect of proximal LAD. Mild plaque in the proximal circumflex, mid RCA. FFR pending. Overall, possible isolated episode of angina but otherwise essentially symptom-free. Will treat for stable coronary disease. He is now on aspirin. Continue beta-blockers. Blood pressure medications. Started statins. He if any recurrence of chest pain or any other cardiac symptoms, he will contact us immediately. Discussed with patient as well as significant other. Total time spent including review of data, counseling, documentation, coordination care-32 minutes. Coding Level of Care Code Est Pt Level 4 (19524) Diagnoses Atherosclerotic cardiovascular disease I25.10 Primary hypertension I10 Hypertension type: primary hypertension
== END 2024-05-25 10:31 | disposition home or self-care (01) ==
PROVIDERS: PCP Internal Medicine; Visit Provider Internal Medicine
DX: I25.10 Atherosclerotic heart disease of native coronary artery without angina pectoris (principal); I10 Essential (primary) hypertension
CPT/HCPCS: 99214

== ENCOUNTER → 2024-05-25 09:59 | Outpatient (BNVA) | payer BC, SELFPAY | PROVIDERS: PCP Internal Medicine; Visit Provider Internal Medicine ==

== ENCOUNTER 2024-06-15 11:04 | Outpatient (REF) | payer BC, SELFPAY ==
[2024-06-15 12:30] LABS: Alanine Aminotransferase 53 U/L (0-40); Albumin Level 4.3 g/dL (3.5-5.0); Alkaline Phosphatase 143 U/L (39-117); Aspartate Amino Transferase 74 U/L (5-37); Bilirubin Direct 0.3 mg/dL (0.0-0.5); Bilirubin Total 0.8 mg/dL (0.0-1.0); Iron 108 mcg/dL (45-160); Percent Iron Saturation 31 % (15-50); Total Iron Binding Capacity 349 mcg/dL (228-428); Total Protein 7.2 g/dL (6.5-8.0); Unsaturated Iron Binding 241 ug/dL
[2024-06-15 12:38] LABS: Ferritin 276 ng/mL (20-250)
== END 2024-06-15 11:05 | disposition home or self-care (01) ==
LOC: HO.BBR 11:04
PROVIDERS: PCP Internal Medicine; Visit Provider Internal Medicine
DX: E83.19 Other disorders of iron metabolism (principal)
CPT/HCPCS: 36415; 80076; 82728; 83540; 85018; 99195

== ENCOUNTER 2024-07-13 08:20 | Outpatient (REF) | payer BC, SELFPAY ==
[2024-07-13 08:32] LABS: MANUAL DIFF FLAG NO
[2024-07-13 09:36] LABS: Basophils Percent Auto 0.5 % (0-2); Eosinophils Absolute Auto 0.5 X10*3/uL (0.0-0.4); Eosinophils Percent Auto 6.8 % (0-4); Hematocrit 40.2 % (42.0-52.0); Imm Gran Abs Auto 0.03 X10*3/uL (0.00-0.03); Imm Gran Pct Auto 0.4 % (0.0-0.4); Lymphocytes Absolute Auto 2.1 X10*3/uL (1.2-4.9); Lymphocytes Percent Auto 26.4 % (20-40); Mean Corpuscular HGB Conc 34.8 g/dl (31.0-36.0); Mean Corpuscular Hemoglobin 35.7 pg (27.0-33.0); Mean Corpuscular Volume 102.6 fL (80.0-98.0); Mean Platelet Volume 10.1 fL (9.4-12.4); Monocytes Absolute Auto 0.9 X10*3/uL (0.1-1.2); Monocytes Percent Auto 11.7 % (2-11); Neutrophils Absolute Auto 4.3 x10*3/uL (2.0-8.3); Neutrophils Percent Auto 54.2 % (45-73); Platelet Count 212 X10*3/uL (160-400); Red Blood Count 3.92 X10*6/uL (4.60-5.80); Red Cell Distribution Width 12.1 % (11.0-16.0); White Blood Count 7.9 X10*3/uL (4.8-10.8)
[2024-07-13 09:42] LABS: Estimated Average Glucose 105 mg/dL; Hemoglobin A1c % 5.3 % (<6.0); Total Hemoglobin (HGBA1C) 3464.4371 umol/L
[2024-07-13 10:12] LABS: Alanine Aminotransferase 36 U/L (0-40); Albumin Level 4.5 g/dL (3.5-5.0); Alkaline Phosphatase 122 U/L (39-117); Anion Gap 15 (12-20); Aspartate Amino Transferase 49 U/L (5-37); Bilirubin Total 1.4 mg/dL (0.0-1.0); Blood Urea Nitrogen 11 mg/dL (9-16); Carbon Dioxide 26 mmol/L (22-29); Chloride 106 mmol/L (96-108); Cholesterol 129 mg/dL (<200); Estimated Glomerular Filt Rate > 60; Glucose Fasting 116 mg/dL (60-99); HDL Cholesterol 41 mg/dL (>40); LDL Cholesterol Calculated 65 mg/dL (<100); Potassium 3.5 mmol/L (3.3-5.1); Sodium 143 mmol/L (135-145); Total Protein 7.8 g/dL (6.5-8.0); Triglycerides 119 mg/dL (<150)
== END 2024-07-13 08:21 | disposition home or self-care (01) ==
LOC: HO.LAB 08:20
PROVIDERS: PCP Internal Medicine; Visit Provider Internal Medicine
DX: R73.9 Hyperglycemia, unspecified (principal); Z13.0 Encounter for screening for diseases of the blood and blood-forming organs and certain disorders involving the immune mechanism; Z13.9 Encounter for screening, unspecified; Z13.220 Encounter for screening for lipoid disorders
CPT/HCPCS: 36415; 80053; 80061; 83036; 85025

== ENCOUNTER 2024-07-14 10:51 | Outpatient (AMB) | payer BC, SELFPAY ==
[2024-07-14 10:56] VITALS: BP 136/72; PULSE 69; O2SAT 96; BMI 28.4
--- NOTE | 2024-07-14 10:56 | A.OFFPC_ITS ---
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 Accompanied by: Self / Same As Patient Allergies Seasonal Allergies Allergy (Mild, Verified 07/14/24 10:57) Sneezing Medication List - Last Reconciled 07/14/24 by Wood Lamar MD aspirin 81 mg PO DAILY atenolol 100 mg PO DAILY atorvastatin 40 mg PO QPM losartan 100 mg PO DAILY nifedipine ER 60 mg PO DAILY Tobacco use date assessed: 01/03/24 Fall risk assessment: No Falls in past year Last assessed Fall Risk: 07/14/24 Dental Screening Dental Screen Date: 01/03/24 HPI 3 Month F/U HPI Details HTN on Rx; doing we;l and compliant PFS Medical History Asthma Hypertension Surgical History History of laser refractive surgery History of cholecystectomy History of vasectomy Family History Father Gout Diabetes Hypertension Past heart attack Mother Diabetes Colon cancer Sister No problems noted. Sister No problems noted. Son No problems noted. Son No problems noted. Social History Housing: House Alcohol intake: current Alcohol intake frequency: 0-2 drinks per day Alcohol type: wine Patient Tobacco Use Status: Never used Tobacco Tobacco use type: Cigarette e-Cigarette/Vaping Use: Never Used Second Hand Smoke Exposure: No service: No Current occupational status: retired Cognitive needs: No Hearing needs: No Vision needs: Yes (glasses ) Questionnaire PHQ-9 Over the last 2 weeks, how often have you been bothered by any of the following problems? 1. Little interest or pleasure in doing things: not at all 2. Feeling down, depressed, or hopeless: not at all 3. Trouble falling or staying asleep, or sleeping too much: not at all 4. Feeling tired or having little energy: not at all 5. Poor appetite or overeating: not at all 6. Feeling bad about yourself - or that you are a failure or have let yourself or your family down: not at all 7. Trouble concentrating on things, such as reading the newspaper or watching television: not at all 8. Moving or speaking so slowly that other people could have noticed. Or the opposite - being so fidgety or restless that you have been moving around a lot more than usual: not at all 9. Thoughts that you would be better off or of hurting yourself in some way: not at all Total score: 0 Depression Screening Interpretation: Negative Depression Screening Done: Yes [id number] - PHQ-9 Billing: Yes Source: Developed by Drs. Pedro Ibarra, Janice Moya, Randall Romo and colleagues, with an educational cintia from [employer]. Thrive Questionnaire Date Thrive assessed: 01/03/24 Are you currently unemployed and looking for a job?: No AUDIT C Alcohol Use Questionnaire (AUDIT-C) 2. How many drinks containing alcohol do you have on a typical day when you are drinking?: 1 or 2 3. How often do you have six or more drinks on one occasion?: Never Total Score: 0 LEYDI-7 AMB Questionnaire LEYDI-7 Date LEYDI - 7 assessed: 01/03/24 Source: Developed by Drs. Pedro Ibarra, Janice Moya, Randall Romo and colleagues, with an educational cintia from [employer]. Review of Systems Const Denies chills, Denies headache(s) and Denies weight loss ENT Denies headache(s) Card Denies chest pain, Denies syncope, Denies irregular heart rhythm and Denies dyspnea Resp Denies chest congestion, Denies cough and Denies dyspnea GI Denies abdominal pain, Denies change in stool character, Denies nausea and Denies vomiting Musc Denies deformity and Denies joint swelling Neuro Denies syncope and Denies headache(s) Physical exam (Primary Care) Vital Signs: Last Vital Signs Pulse 69 07/14/24 10:56 BP 136/72 07/14/24 10:56 Pulse Ox 96 07/14/24 10:56 Oxygen Delivery Method Room Air 07/14/24 10:56 BMI result Body Mass Index 28.4 Tobacco/Smoking Status: Tobacco use Status Tobacco use date assessed 01/03/24 07/14/24 11:02 Patient Tobacco Use Status Never used Tobacco 07/14/24 11:02 Tobacco use type Cigarette 07/14/24 11:02 e-Cigarette/Vaping Use Never Used 07/14/24 11:02 PHQ-9: PHQ-9 Score PHQ-9: Total score 0 07/14/24 11:02 Depression Screening Interpretation: Negative Thrive Assessment: Date of Thrive Assessment Date Thrive assessed 01/03/24 07/14/24 11:02 Const General: cooperative, comfortable, no acute distress and alert Neck Neck: Yes no lymphadenopathy Thyroid: Thyroid normal Resp Effort & Inspection: normal respiratory effort Auscultation: clear to auscultation bilaterally Percussion: percussion normal Cardio Jugular venous distension: no JVD Palpation: normal PMI Rate: regular rate Rhythm: regular rhythm Heart sounds: S1 normal heart sound present and S2 normal heart sound present GI Inspection: Yes normal to inspection Palpation (GI): No hepatosplenomegaly present Skin General skin exam: no rashes or lesions noted Extrem General: Yes no clubbing, cyanosis or edema Assessment and Plan Assessment & Plan (1) Hypertension: Code(s): I10 - Essential (primary) hypertension Qualifiers: Hypertension type: primary hypertension Qualified Code(s): I10 - Essential (primary) hypertension Plan: stable; same rx Coding Level of Care Code Est Pt Level 3 (71926) Diagnoses Primary hypertension I10 Hypertension type: primary hypertension
== END 2024-07-14 11:13 | disposition home or self-care (01) ==
PROVIDERS: PCP Internal Medicine; Visit Provider Internal Medicine
DX: I10 Essential (primary) hypertension (principal)

== ENCOUNTER → 2024-07-14 10:51 | Outpatient (BNVA) | payer BC, SELFPAY | PROVIDERS: PCP Internal Medicine; Visit Provider Internal Medicine | DX: I10 Essential (primary) hypertension (principal) | CPT/HCPCS: 96127 ==

== ENCOUNTER 2024-08-10 10:57 | Outpatient (REF) | payer BC, SELFPAY | END 2024-08-10 10:58 | disposition home or self-care (01) | LOC: HO.BBR 10:57 | PROVIDERS: PCP Internal Medicine; Visit Provider Internal Medicine | DX: E83.19 Other disorders of iron metabolism (principal) | CPT/HCPCS: 85018; 99195 ==

== ENCOUNTER 2024-09-21 10:25 | Outpatient (AMB) | payer BC, SELFPAY ==
[2024-09-21 10:26] VITALS: BP 124/58; PULSE 83; BMI 29.6
--- NOTE | 2024-09-21 10:26 | A.OFFVIS_ITS ---
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 In the past, he was seen regarding chest discomfort. On one occasion, he was walking and at that time, had tiredness and a discomfort in the chest. Then resolved completely never had a similar episode again. Subsequently, he underwent further workup with a stress test as well as coronary CTA. He states that he feels completely normal. He has got absolutely no symptoms. No chest pains or in fact anything cardiac sounding. He is getting along fine. [facility] Medical History Asthma Hypertension Surgical History History of laser refractive surgery History of cholecystectomy History of vasectomy Family History Father Gout Diabetes Hypertension Past heart attack Mother Diabetes Colon cancer Sister No problems noted. Sister No problems noted. Son No problems noted. Son No problems noted. Social History Housing: House Alcohol intake: current Alcohol intake frequency: 0-2 drinks per day Alcohol type: wine Patient Tobacco Use Status: Never used Tobacco Tobacco use type: Cigarette e-Cigarette/Vaping Use: Never Used Second Hand Smoke Exposure: No service: No Current occupational status: retired Cognitive needs: No Hearing needs: No Vision needs: Yes (glasses ) Review of Systems Const Denies chills, Denies daytime sleepiness, Denies fatigue, Denies fever(s), Denies poor appetite, Denies snoring, Denies stops breathing during sleep, Denies weakness, Denies weight gain and Denies weight loss Eyes Denies loss of vision ENT Denies dizziness and Denies hearing loss Card Denies chest pain, Denies irregular heart rhythm, Denies claudication, Denies leg edema, Denies lightheadedness, Denies palpitations, Denies dyspnea on exertion and Denies orthopnea Resp Denies cough, Denies excessive phlegm production, Denies dyspnea on exertion, Denies snoring and Denies wheezing GI Denies abdominal pain, Denies hematochezia, Denies change in bowel habits, Denies nausea and Denies vomiting Denies dysuria and Denies urinary frequency Musc Denies arthralgias, Denies muscle weakness, Denies numbness and Denies other Skin/Breast Denies nail changes and Denies rash Neuro Denies Abnormal speech present, Denies dizziness, Denies loss of vision, Denies memory loss, Denies numbness and Denies weakness Psych Denies depression and Denies memory loss Endo Denies fatigue and Denies palpitations Kurt/Lymph Denies easy bruising Aller/Immun Denies wheezing Physical Exam Vital Signs: Last Vital Signs Pulse 83 09/21/24 10:26 BP 124/58 L 09/21/24 10:26 BMI result Body Mass Index 29.6 Const General: comfortable and no acute distress Orientation/consciousness: patient oriented x3 HEENT Other: Unremarkable Head: Yes normal to inspection Neck Neck: Yes normal visual inspection Chest Chest palpation & inspection: normal inspection of the chest Resp Auscultation: clear to auscultation bilaterally Cardio Palpation: normal PMI Heart sounds: S1 normal heart sound present, S2 normal heart sound present, no gallops, no murmurs and no rubs GI Palpation (GI): Soft to palpation Back/Spine/Pelvis Other: unremarkable Skin General skin exam: no rashes or lesions noted Neuro General: patient oriented x3 Speech: No Abnormal speech present Extrem General: Yes normal to inspection Psych Mental Status: mental status grossly normal Assessment & Plan Assessment & Plan (1) Atherosclerotic cardiovascular disease: Code(s): I25.10 - Atherosclerotic heart disease of robinson coronary artery without angina pectoris Category: Medical (2) Hypertension: Code(s): I10 - Essential (primary) hypertension Category: Medical Qualifiers: Hypertension type: primary hypertension Qualified Code(s): I10 - Essential (primary) hypertension Plan Cardiac studies reviewed. In the baseline EKG, underlying rhythm is sinus at a rate of 75/Min; no significant ST-T changes and otherwise unremarkable. Normal KS and corrected QT. He underwent an exercise stress test. Reached 6.1 METS on Qasim protocol, reached target heart rate, no angina but had fatigue and shortness of breath. In the EKGs, there is some horizontal appearing ST depression in the recovery part but otherwise upsloping STs. Overall, inconclusive per my evaluation. In the echocardiogram, LVEF 61%. Inferoseptal wall, basal inferior and mid inferior segments hypokinetic (unclear if some of this could be artifactual). In the coronary CTA, moderate, 50-60% stenosis in the distal aspect of proximal LAD. Mild plaque in the proximal circumflex, mid RCA. FFR pending. Overall, possible isolated episode of angina but no recurrence and otherwise completely symptom-free. Continue current meds including aspirin, atenolol, atorvastatin. LDL is well controlled at 65 mg/dL. For blood pressure, on nifedipine, losartan. Stable. If any recurrence of chest pain, he will contact us immediately. Also advised regarding seeking emergency help. Follow-up in 6 months. Coding Level of Care Code Est Pt Level 4 (84462) Diagnoses Atherosclerotic cardiovascular disease I25.10 Primary hypertension I10 Hypertension type: primary hypertension
== END 2024-09-21 10:49 | disposition home or self-care (01) ==
PROVIDERS: PCP Internal Medicine; Visit Provider Internal Medicine
DX: I25.10 Atherosclerotic heart disease of native coronary artery without angina pectoris (principal); I10 Essential (primary) hypertension
CPT/HCPCS: 99214

== ENCOUNTER → 2024-09-21 10:25 | Outpatient (BNVA) | payer BC, SELFPAY | PROVIDERS: PCP Internal Medicine; Visit Provider Internal Medicine ==

== ENCOUNTER 2024-10-13 11:36 | Outpatient (AMB) | payer BC, SELFPAY ==
--- OUTSIDE RECORDS SUMMARY | 2024-10-13 11:37 | XMS_ITS ---
Author Organization [facility] Address [address] [place] [id number] Care Team Providers Care Job Press Feeder Name Role Phone Wood Lamar MD Primary Care Provider Pedro Thompson Unavailable [phone] ALLERGIES Allergen (clinical drug ingredient) Drug/Non Drug Allergy documented on EMR Reaction Allergy Type Onset Date Status ragweed (uncoded) Unknown Allergy Ac tive REASON FOR VISIT Patient presents today for an excess iron,fam hx colon ca MEDICATIONS Medication SIG (Take, Route, Fr equency, Duration) Notes Start Date End Date Status Lisinopril 40 MG 1 tablet Orally Once a day Active NIFEdipine ER 30 MG 1 tablet Orally Once a day Active Atenolol 100 MG 1 tablet Orally Once a day Active Allopurinol 150 mg 1 tablet Orally Once a day Not-Taking PROBLEMS Problem Type ICD Code Onset Dates Problem Status W/U Status Risk SNOMED Code Notes Problem Liver fibrosis (K74.00) Active confirmed Hepatic fibrosis (disorder) (39791740) Problem Fatty liver (K76.0) Active confirmed Fatty liver (745632557) Problem Elevated liver function tests (R94.5) Active confirmed Elevated liver enzymes level (923244379) VITAL SIGNS BMI 28.77 kg/m2 02/19/2024 Blood pressure systolic 000 mm Hg 02/19/20 24 Blood pressure diastolic 00 mm Hg 024 Height 68.5 in 02/19/2024 Temperature 98.6 degrees Fahrenheit 02/19/20 24 Weight 192 lbs 02/19/2024 Encounters Encounter Location Date Provider Diagnosis [facility] [address] [place] [address] 02/19/2024 Pedro Hedrick Liver fibrosis K74.00 ; Iron excess E83.19 ; Fatty liver K76.0 and Elevated liver function tests R94.5 ASSESSMENTS Encounter Date Diagnosis Assessment Notes Treatment Notes Treatment Clinical Notes 02/19/2024 Liver fibrosis (ICD-10 - K74.00) 02/19/2024 Iron excess (ICD-10 - E83.19) We will have you start doing the phlebotomy every 2 months beginning the end of March,. 02/19/2024 Fatty liver (ICD-10 - K76.0) Watch diet, lose wieight, and minimize alcohol intake regarding the fatty liver 02/19/2024 Elevated liver function tests (ICD-10 - R94.5) PLAN OF TREATMENT Treatment Notes Assessment Notes Iron excess We will have you sta rt doing the phlebotomy every 2 months beginning the end of March,. Fatty liver Watch diet, lose wie ight, and minimize alcohol intake regarding the fatty liver Pending Test Test Name Order Date LIVER PROFILE 02/19/2024 ALPHA-FETOPROTEIN,TUMOR MARKER 4 US abdomen comp w elastography 4 Next Appt Details Follow Up: 1 Year, Reason: Provider Name:Pedro Hedrick , 02/18/2025 09:00:00 AM, [address] [facility], [address], [place], [phone], Progress Notes * Examination Category Sub-Category Detail Notes General Examination GENERAL APPEARANCE: pleasant , well nourished, well developed, in no acute distress , pleasant, well nourished, well developed, in no acute distress EYES: sclera non-icteric , sclera non-icteric NECK/THYROID: no cervical lymphade nopathy, neck supple , no cervical lymphadenopathy, neck supple HEART: S1, S2 normal , S1, S2 normal LUNGS: clear to auscultatio n bilaterally , clear to auscultation bilaterally ABDOMEN: normal bowel sounds, no guarding or rigidity, no hepatosplenomegaly, no masses palpable, soft, nontender, nondistended. NEUROLOGIC: alert and oriented , alert and oriented SKIN: nonjaundiced, no spi tami angiomata. , nonjaundiced, no spider angiomata. EXTREMITIES: no edema , no edema ORAL CAVITY: mucosa moist , mucos a moist
--- OUTSIDE RECORDS SUMMARY | 2024-10-13 11:38 | XMS_ITS ---
Author Organization [facility] Address [address] [place] [phone] Care Team Providers Care Slab Miller Operator Name Role Phone Wood Lamar MD Primary Care Provider Pedro Thompson Unavailable [phone] ALLERGIES Allergen (clinical drug ingredient) Drug/Non Drug Allergy documented on EMR Reaction Allergy Type Onset Date Status ragweed (uncoded) Unknown Allergy Ac tive REASON FOR VISIT Patient presents today for a fatty liver MEDICATIONS Medication SIG (Take, Route, Fr equency, Duration) Notes Start Date End Date Status Atenolol 100 MG 1 tablet Orally Once a day Active Lisinopril 40 MG 1 tablet Orally Once a day Active NIFEdipine ER 30 MG 1 tablet Orally Once a day Active Allopurinol 150 mg 1 tablet Orally Once a day Not-Taking PROBLEMS Problem Type ICD Code Onset Dates Problem Status W/U Status Risk SNOMED Code Notes Problem History of adenomatous polyp of colon (Z86.010) Active confirmed 641291942 VITAL SIGNS BMI 26.97 kg/m2 06/19/2023 Blood pressure systolic 000 mm Hg 06/19/20 23 Blood pressure diastolic 00 mm Hg 023 Height 68.5 in 06/19/2023 Temperature 97.4 degrees Fahrenheit 06/19/20 23 Weight 180 lbs 06/19/2023 Encounters Encounter Location Date Provider Diagnosis [facility] [address] [place] [phone] 06/19/2023 Pedro Hedrick Family history of colon cancer Z80.0 ; Iron excess E83.19 ; Colon cancer screening Z12.11 and History of adenomatous polyp of colon Z86.010 ASSESSMENTS Encounter Date Diagnosis Assessment Notes Treatment Notes Treatment Clinical Notes 06/19/2023 Family history of colon cancer (ICD-10 - Z80.0) Repeat colonoscopy in 202706/19/2023 Iron excess (ICD-10 - E83.19) Keep doing the phlebotomy [facility] every month starting the end of 06/2023. Call my office if problems. 06/19/2023 Colon cancer screening (ICD-10 - Z12.11) 06/19/2023 History of adenomatous polyp of colon (ICD-10 - Z86.010) PLAN OF TREATMENT Treatment Notes Assessment Notes Family history of colon cancer Repeat co lonoscopy in 2027 Iron excess Keep doing the phleb otomy at the [facility] every month starting the end of 06/2023. Call my office if problems. Next Appt Details Follow Up: Spring 2023, Reas on: Provider Name:Pedro Hedrick , 02/18/2025 09:00:00 AM, [address] [place] [address], [address], [place], [phone], Progress Notes * Examination Category Sub-Category Detail [...]
--- OUTSIDE RECORDS SUMMARY | 2024-10-13 11:38 | XMS_ITS | Patient Health Record ---
Author Organization [facility] Address [address] [place] [address] Care Team Providers Care Soil Science Teacher Name Role Phone Brianda JACOBS, Wood Primary Care Provider Pedro Thompson Unavailable [phone] ALLERGIES Allergen (clinical drug ingredient) Drug/Non Drug Allergy documented on EMR Reaction Allergy Type Onset Date Status ragweed (uncoded) Unknown Allergy Ac tive RESULTS Component Value Reference Range Notes Therapeutic Phlebotomy Reviewed date:10/19/2023 01:31:08 PM Interpretation: Performing Lab:[facility], [address] [place] [phone] Notes/Report: THER/HGB 15.6 14.0-18.0 g/dL THER/HCT TNP 42.0-52.0 % Therapeutic Phlebotomy Phlebotomy Performed 500 mls drawn on 10/17/23. Please note that a copy of this report has been sent to the Primary Care Physician, the ordering physician and any physician designated by patient request. Therapeutic Phlebotomy Reviewed date:11/18/2023 10:08:07 PM Interpretation: Performing Lab:[facility], [address] [place] [phone] Notes/Report: THER/HGB 15.9 14.0-18.0 g/dL THER/HCT TNP 42.0-52.0 % Therapeutic Phlebotomy Phlebotomy Performed 500 mls drawn on 11/18/23. Please note that a copy of this report has been sent to the Primary Care Physician, the ordering physician and any physician designated by patient request. Liver Panel Reviewed date:01/07/2024 10:47:21 PM Interpretation: Performing Lab:[facility], [address] [place] [phone] Notes/Report: Bilirubin Total 1.2 0.0-1.0 mg/dL Bilirubin Direct 0.4 0.0-0.5 mg/dL Aspartate Amino Transferase 49 5-37 U/L Alanine Aminotransferase 48 0-40 U/L Total Protein 7.1 6.5-8.0 g/dL Albumin Level 4.1 3.5-5.0 g/dL Alkaline Phosphatase 140 39-117 U/L IRON PROFILE Reviewed date:12/19/2023 01:03:44 PM Interpretation: Performing Lab:[facility], [address] [place] [phone] Notes/Report: Iron 205 45-160 mcg/dL Total Iron Binding Capacity 381 228-428 mcg/d L Percent Iron Saturation 54 15-50 % Unsaturated Iron Binding 176 Ferritin Reviewed date:01/16/2024 06:27:23 PM Interpretation: Performing Lab:[facility], [address] [place] [phone] Notes/Report: Ferritin 162 20-250 ng/mL Therapeutic Phlebotomy Reviewed date:12/19/2023 01:15:47 PM Interpretation: Performing Lab:[facility], [address] [place] [phone] Notes/Report: THER/HGB 15.3 14.0-18.0 g/dL THER/HCT TNP 42.0-52.0 % Therapeutic Phlebotomy Phlebotomy Performed 500 mls drawn on 12/19/23. Please note that a copy of this report has been sent to the Primary Care Physician, the ordering physician and any physician designated by patient request. Therapeutic Phlebotomy Reviewed date:01/16/2024 06:27:33 PM Interpretation: Performing Lab:[facility], [address] [place] [phone] Notes/Report: THER/HGB 16.5 14.0-18.0 g/dL THER/HCT TNP 42.0-52.0 % Therapeutic Phlebotomy Phlebotomy Performed 500 mls drawn on 01/16/24. Please note that a copy of this report has been sent to the Primary Care Physician, the ordering physician and any physician designated by patient request. Therapeutic Phlebotomy Reviewed date:02/17/2024 04:38:43 PM Interpretation: Performing Lab:[facility], [address] [place] [address] Notes/Report: THER/HGB 15.1 14.0-18.0 g/dL THER/HCT TNP 42.0-52.0 % Therapeutic Phlebotomy Phlebotomy Performed 500 mls drawn on 02/17/24. Please note that a copy of this report has been sent to the Primary Care Physician, the ordering physician and any physician designated by patient request. US abdomen comp w elastograp hy (Not yet reviewed by provider) Interpretation: Performing Lab: Notes/Report: [address] [address] Ultrasound Report Signed Patient: Kurt Thacker MR#: [id number] : 1955 Acct:[id number] Age/Sex: 68 / M ADM Date: 03/03/24 Loc: HO.US Attending Dr: Pedro Hedrick MD Ordering Physician: Pedro Hedrick Date of Service: 03/03/24 Procedure(s): US abdomen comp w elastography Accession Number(s): [id number] cc: Wood Lamar MD; Pedro Hedrick EXAMINATION: US COMPLETE ABDOMEN WITH LIVER ELASTOGRAPHY CLINICAL INFORMATION: Hepatic fibrosis, fatty liver and elevated liver function tests. COMPARISON: None available. TECHNIQUE: Real-time imaging of the abdominal viscera. Noninvasive ultrasound liver fibrosis assessment is performed using Андрей Elast[employer] point quantification shear wave elastography (2D-SWE) with a C5-2 MHz transducer. Multiple elastography samples are obtained. FINDINGS: PANCREAS: Normal. The visualized pancreatic head and body are normal in appearance. The remainder of the pancreas is obscured from visualization by the overlying bowel gas. ABDOMINAL AORTA: The proximal, middle, and distal aortic segments are normal in caliber. INFERIOR VENA CAVA: Visualized portions are normal. LIVER: The liver demonstrates normal size, contour and increased echogenicity. No focal lesion or intrahepatic biliary duct dilatation. The right lobe measures 13.8 cm in length. The left lobe measures 9.1 cm in length. Portal flow is towards the liver (hepatopetal). Shear wave liver elastography median stiffness is 2.77 m/s (reference: normal median stiffness is 1.3 m/s or less). IQR/median stiffness to assess sampling precision is 0.05 (reference: good quality data set is IQR/median stiffness of 0.15 or less). GALLBLADDER: Normal. The gallbladder is physiologically distended without evidence of stones, sludge, polyps, wall thickening or pericholecystic fluid. COMMON BILE DUCT: Normal in caliber measuring 0.3 cm in diameter. RIGHT KIDNEY: Normal. No hydronephrosis. No renal calculi or focal parenchymal lesions. The kidney measures 12.0 cm in maximum dimension. LEFT KIDNEY: There is mild pelviectasis, without magaly hydronephrosis. No renal calculi or focal parenchymal lesions. The kidney measures 11.2 cm in maximum dimension. SPLEEN: Normal. The spleen measures 8.9 cm in maximum dimension. FREE FLUID: None. US/US abdomen comp w elastography IMPRESSION: 1. There is generalized increase in hepatic echotexture, consistent with fatty infiltration or hepatocellular disease. Please correlate clinically. No focal hepatic mass or intrahepatic biliary dilatation is seen. 2. Liver elastography: Measurements are suggestive of clinically significant portal hypertension. When compared with prior exam, there is a statistically significant increase in liver stiffness (increase at least 10%). REFERENCE: Society of Radiologists in Ultrasound Liver Stiffness Thresholds (2020): LIVER STIFFNESS THRESHOLDS: *Liver Stiffness equal or less than 1.3 m/s: High probability of being normal. *Liver Stiffness less than 1.7 m/s: In the absence of other known clinical signs, rules out compensated advanced chronic liver disease. *Liver Stiffness 1.7-2.1 m/s: Suggestive of compensated advanced chronic liver disease but need further test for confirmation. *Liver Stiffness over 2.1 m/s: Rules in compensated advanced chronic liver disease. *Liver Stiffness over 2.4 m/s: Suggestive of clinically significant portal hypertension. QUALITY OF DATA SET: *IQR/Median value equal or less than 0.15 implies a quality data set. *IQR/Median value over 0.15 implies a poor quality data set. SIGNIFICANT CHANGE FROM PRIOR EXAM: Significant change if liver stiffness measurement is 10% or greater from prior exam. OTHER CONSIDERATIONS: The stage of liver fibrosis may be overestimated in the setting of acute hepatitis, liver inflammation, elevated liver function tests, hepatic vascular congestion, obstructive cholestasis, non-fasting state, and infiltrative diseases such as amyloidosis and lymphoma. In some patients with NAFLD, the liver stiffness thresholds for compensated advanced chronic liver disease may be lower. In causes other than viral hepatitis and NAFLD, liver stiffness thresholds are not well established. Dictated By: Marck Morse MD Signed By: <Electronically signed by Marck Morse MD in OV> 03/13/24 1824 DD/ 0943 TD/TT: Cfo: JEMAL Therapeutic Phlebotomy Reviewed date:08/10/2024 11:03:57 PM Interpretation: Performing Lab:[address] [phone] Notes/Report: THER/HGB 14.5 14.0-18.0 g/dL THER/HCT TNP 42.0-52.0 % Therapeutic Phlebotomy Phlebotomy Performed 500 mls drawn on 04/14/24. Please note that a copy of this report has been sent to the Primary Care Physician, the ordering physician and any physician designated by patient request. Liver Panel Reviewed date:08/10/2024 11:03:24 PM Interpretation: Performing Lab:[facility], [address] [place] [phone] Notes/Report: Bilirubin Total 0.8 0.0-1.0 mg/dL Bilirubin Direct 0.3 0.0-0.5 mg/dL Aspartate Amino Transferase 74 5-37 U/L Alanine Aminotransferase 53 0-40 U/L Total Protein 7.2 6.5-8.0 g/dL Albumin Level 4.3 3.5-5.0 g/dL Alkaline Phosphatase 143 39-117 U/L IRON PROFILE Reviewed date:06/15/2024 11:28:56 PM Interpretation: Performing Lab:[address] [phone] Notes/Report: Iron 108 45-160 mcg/dL Total Iron Binding Capacity 349 228-428 mcg/d L Percent Iron Saturation 31 15-50 % Unsaturated Iron Binding 241 Ferritin Reviewed date:07/05/2024 05:22:35 PM Interpretation: Performing Lab:[facility], [address] [place] [phone] Notes/Report: Ferritin 276 20-250 ng/mL Therapeutic Phlebotomy Reviewed date:06/16/2024 12:41:45 PM Interpretation: Performing Lab:[facility], [address] [place] [address] Notes/Report: THER/HGB 13.9 14.0-18.0 g/dL THER/HCT TNP 42.0-52.0 % Therapeutic Phlebotomy Phlebotomy Performed 500 mls drawn on 06/15/24. Please note that a copy of this report has been sent to the Primary Care Physician, the ordering physician and any physician designated by patient request. Therapeutic Phlebotomy Reviewed date:08/10/2024 11:03:35 PM Interpretation: Performing Lab:[facility], [address] [place] [address] Notes/Report: THER/HGB 13.3 14.0-18.0 g/dL THER/HCT TNP 42.0-52.0 % Therapeutic Phlebotomy Phlebotomy Performed 500 mls drawn on 08/10/24. Please note that a copy of this report has been sent to the Primary Care Physician, the ordering physician and any physician designated by patient request. REASON FOR REFERRAL No Information MEDICATIONS Medication SIG (Take, Route, Fr equency, Duration) Notes Start Date End Date Status Lisinopril 40 MG 1 tablet Orally Once a day Active NIFEdipine ER 30 MG 1 tablet Orally Once a day Active Atenolol 100 MG 1 tablet Orally Once a day Active Allopurinol 150 mg 1 tablet Orally Once a day Not-Taking IMMUNIZATIONS Vaccine Route Administration Date Status Comme nts Influenza Unknown 08/08/2022 Administered Influenza Unknown 08/13/2023 Administered SOCIAL HISTORY Sex Assigned At : Social History Observation Description Sex Assigned At Unknown PROBLEMS Problem Type ICD Code Onset Dates Problem Status W/U Status Risk SNOMED Code Notes Problem Colon cancer screening (Z12.11) Active confirmed 763827283 Problem History of adenomatous polyp of colon (Z86.010) Active confirmed 132479696 Problem Diverticulosis of large intestine without perforation or abscess without bleeding (K57.30) Active confirmed Diverticul ar disease of colon (416839466) Problem Elevated liver function tests (R79.89) Active confirmed 520018930 Problem Preprocedural examination (Z01.818) Active confirmed 994549560465017 Problem Fatty liver (K76.0) Active confirmed Fatty liver (736228020) Problem Family history of colon cancer (Z80.0) Active confirmed 073120552 Problem Iron excess (E83.19) Active confirmed 10601014 Problem Elevated liver function tests (R94.5) Active confirmed Elevated liver enzymes level (284829654) Problem Liver fibrosis (K74.00) Active confirmed Hepatic fibrosi s (disorder) (04203867) VITAL SIGNS Temperature 98.6 degrees Fahrenheit 02/19/2024 Blood pressure diastolic 00 mm Hg 02/19/2024 Height 68.5 in 02/19/2024 Blood pressure systolic 000 mm Hg 02/19/2024 Weight 192 lbs 02/19/2024 BMI 28.77 kg/m2 02/19/2024 Encounters Encounter Location Date Provider Diagnosis [facility] [address] [place] [phone] 02/19/2024 Pedro Hedrick Liver fibrosis K74.00 ; Iron excess E83.19 ; Fatty liver K76.0 and Elevated liver function tests R94.5 [facility] [address] [place] [phone] 02/24/2024 Pedro Hedrick ASSESSMENTS Encounter Date Diagnosis Assessment Notes Treatment Notes Treatment Clinical Notes 02/19/2024 Iron excess (ICD-10 - E83.19) We will have you start doing the phlebotomy every 2 months beginning the end of March,. 02/19/2024 Liver fibrosis (ICD-10 - K74.00) 02/19/2024 Fatty liver (ICD-10 - K76.0) Watch diet, lose wieight, and minimize alcohol intake regarding the fatty liver 02/19/2024 Elevated liver function tests (ICD-10 - R94.5) PLAN OF TREATMENT Pending Test Test Name Order Date LIVER PROFILE 02/19/2024 LIVER PROFILE 10/31/2022 IRON + IBC (FE) 10/31/2022 IRON + IBC (FE) 12/02/2022 CBC w DIFF 12/02/2022 CBC w DIFF 10/31/2022 HEPATITIS B, C PROFILE 10/31/2022 ALPHA-FETOPROTEIN,TUMOR MARKER US LIVER BIOPSY CORE GUIDE 12/02/2022 FLUOR. ANTINUCLEAR AB SCREEN (OLEG) 10/21 US ABDOMEN COMP WITH ELASTOGRAPHY 2022 Prothrombin Time INR 12/02/2022 Prothrombin Time INR 10/31/2022 Partial Thromboplastin Time 12/02/2022 Ferritin 10/31/2022 Ferritin 12/02/2022 Alpha 1 Anti-trypsin 10/31/2022 Liver Fibrosis Pnl 10/31/2022 Iron Liver Tissue 12/02/2022 Mitochondrial Antibody 10/31/2022 Smooth Muscle Antibody 10/31/2022 US abdomen comp w elastography US abdomen comp w elastography US biopsy liver 01/14/2023 Future Test Test Name Order Date COLONOSCOPY 01/26/2015 COLONOSCOPY 10/31/2022 Next Appt Details Provider Name:Pedro Hedrick , 02/18/2025 09:00:00 AM, [address] [facility], [address], [place], [address], Insurance Providers Payer Name Payer Address Payer Phone Subscriber Number Group Number Insured Name Patient Relationship to Insured Coverage Start Date Coverage End Date [facility] [address] [place], [place] [id number] KURT THACKER Self - patient is the insured MEDICAL (GENERAL) HISTORY Medical History History ICD Code Hypertension Denies GA,DM,CVA,Lung disease,renal dise ase Gout Neg. screening colonoscopy in 12/2002 elvia Sharif Neg. screening colonoscopy in 07/2015 Elevated LFTs with associate d significant elevated iron stores based on his laboratories. The remainder of the liver workup was otherwise negative. A liver biopsy in December of 2022 described a component of fatty liver, some fibrosis, and elevated iron deposition. However, the quantitative iron analysis of liver tissue was only 0.4 with an iron level of 1557 in the liver tissue. This was not in the range of hereditary hemachromatosis. Genetic testing was also negative for hereditary hemachromatosis as well. However, due to a ferritin level over 2000 and the findings regarding his elevated LFTs and liver biopsy, he did begin a monthly phlebotomy schedule in the spring. Screening colonoscopy in Dec revealed 2 small tubular adenomas that were removed. Dr. Lamar concerned with fatigue, alta Nolen on 04/06/2024 Surgical History Surgery Date(Month/Year) Vasectomy Detached retina
--- NOTE | 2024-10-13 11:51 | MHC.PC.OV ---
Vital Signs 10/13/24 11:52 Height 5 ft 9 in Weight 196 lb 4 oz BMI 29.0 BP 122/66 Blood Pressure Location Lt brachial Position Sitting Pulse 75 Pulse Source Pulse Oximeter Pulse Oximetry (%) 93 Oxygen Delivery Method Room Air Intake Visit Reasons: 3mth f/u Intake Note: Patient is here to follow up on HTN. Manager Wound Care Required: No Finance Business Partner: Not Required per policy Accompanied by: Self / Same As Patient Allergies Seasonal Allergies Allergy (Mild, Verified 10/13/24 11:52) Sneezing Medication List - Last Reconciled 10/13/24 by Wood Lamar MD aspirin 81 mg PO DAILY atenolol 100 mg PO DAILY atorvastatin 40 mg PO QPM coQ10 (ubiquinol) (Qunol Marc CoQ10) 200 mg PO DAILY losartan 100 mg PO DAILY nifedipine ER 60 mg PO DAILY Tobacco use date assessed: 10/13/24 Fall risk assessment: No Falls in past year Last assessed Fall Risk: 10/13/24 Dental Screening Dental Screen Date: 01/03/24 HPI 3mth f/u HPI Details hypertension on rx; doing well and compliant [facility] Medical History Asthma Hypertension Surgical History History of laser refractive surgery History of cholecystectomy History of vasectomy Family History Father Gout Diabetes Hypertension Past heart attack Mother Diabetes Colon cancer Sister No problems noted. Sister No problems noted. Son No problems noted. Son No problems noted. Social History Housing: House Alcohol intake: current Alcohol intake frequency: 0-2 drinks per day Alcohol type: wine Patient Tobacco Use Status: Never used Tobacco Tobacco use type: Cigarette e-Cigarette/Vaping Use: Never Used Second Hand Smoke Exposure: No service: No Current occupational status: retired Cognitive needs: No Hearing needs: No Vision needs: Yes (glasses ) Questionnaire Thrive Questionnaire Date Thrive assessed: 01/03/24 Are you currently unemployed and looking for a job?: No LEYDI-7 AMB Questionnaire LEYDI-7 Date LEYDI - 7 assessed: 01/03/24 Source: Developed by Drs. Pedro Ibarra, Janice Moya, Randall Romo and colleagues, with an educational cintia from [employer]. Review of Systems Const Denies chills, Denies headache(s) and Denies weight loss ENT Denies headache(s) Card Denies chest pain, Denies syncope, Denies irregular heart rhythm and Denies dyspnea Resp Denies chest congestion, Denies cough and Denies dyspnea GI Denies abdominal pain, Denies change in stool character, Denies nausea and Denies vomiting Musc Denies deformity and Denies joint swelling Neuro Denies syncope and Denies headache(s) Physical exam (Primary Care) Vital Signs: Last Vital Signs Pulse 75 10/13/24 11:52 BP 122/66 10/13/24 11:52 Pulse Ox 93 10/13/24 11:52 Oxygen Delivery Method Room Air 10/13/24 11:52 BMI result Body Mass Index 29.0 Tobacco/Smoking Status: Tobacco use Status Tobacco use date assessed 10/13/24 10/13/24 11:54 Patient Tobacco Use Status Never used Tobacco 10/13/24 11:54 Tobacco use type Cigarette 10/13/24 11:54 e-Cigarette/Vaping Use Never Used 10/13/24 11:54 Thrive Assessment: Date of Thrive Assessment Date Thrive assessed 01/03/24 10/13/24 11:54 Const General: cooperative, comfortable, no acute distress and alert Neck Neck: Yes no lymphadenopathy Thyroid: Thyroid normal Resp Effort & Inspection: normal respiratory effort Auscultation: clear to auscultation bilaterally Percussion: percussion normal Cardio Jugular venous distension: no JVD Palpation: normal PMI Rate: regular rate Rhythm: regular rhythm Heart sounds: S1 normal heart sound present and S2 normal heart sound present GI Inspection: Yes normal to inspection Palpation (GI): No hepatosplenomegaly present Skin General skin exam: no rashes or lesions noted Extrem General: Yes no clubbing, cyanosis or edema Office Procedures Flu Questionnaire Does the patient have a severe egg allergy?: No Does the patient have severe life threatening allergies?: No Does the patient have a fever or illness today?: No Has the patient ever had Guillain-Ozark Syndrome?: No Has the patient ever had any past reaction to a flu shot?: No Immunizations Fluarix Triv [id number] (PF) 45 mcg (15 mcg x 3)/0.5 mL IM syringe Performing Provider: Wood Lamar MD [place] [facility] [place] [facility] Administered by: Kira Cazares CMA on 10/13/24 12:11 Dose Route Admin Location Dispensed Lot Number Expiration Date NDC Infrastructure Engineer 0.5 mL IM Left Deltoid 0.5 mL [id number] 04/19/25 48868-179-23 Attention Point VIS Given Date VIS Provided VIS Publication Date 10/13/24 Single Vaccine 21 Eligibility Eligibility Date Funding Source Not [facility] Eligible 10/13/24 Private Coding Level of Care Code Est Pt Level 3 (66245) Diagnoses Primary hypertension I10 Hypertension type: primary hypertension Assessment & Plan Assessment & Plan (1) Hypertension: Code(s): I10 - Essential (primary) hypertension Category: Medical Qualifiers: Hypertension type: primary hypertension Qualified Code(s): I10 - Essential (primary) hypertension Plan: stable; same rx Orders: Orders Influenza [id number] Immunization Today Z23 - Encounter for immunization
[2024-10-13 11:52] VITALS: BP 122/66; PULSE 75; O2SAT 93; BMI 29.0
== END 2024-10-13 12:15 | disposition home or self-care (01) ==
PROVIDERS: PCP Internal Medicine; Visit Provider Internal Medicine
DX: Z23 Encounter for immunization (principal); I10 Essential (primary) hypertension

== ENCOUNTER → 2024-10-13 11:36 | Outpatient (BNVA) | payer BC, SELFPAY | PROVIDERS: PCP Internal Medicine; Visit Provider Internal Medicine | DX: I10 Essential (primary) hypertension (principal); Z23 Encounter for immunization | CPT/HCPCS: 90471; 90656 ==

== ENCOUNTER 2024-10-15 10:51 | Outpatient (REF) | payer BC, SELFPAY ==
--- OUTSIDE RECORDS SUMMARY | 2024-10-15 10:53 | XMS_ITS ---
Author Organization [facility] Address [address] [place] [address] Care Team Providers Care Camp Director Name Role Phone Wood Lamar MD Primary Care Provider Pedro Thompson Unavailable [phone] Encounters Encounter Location Date Provider Diagnosis [facility] [address] [facility] [place] [address] 02/24/2024 Pedro Hedrick PLAN OF TREATMENT Next Appt Details Provider Name:Pedro Hedrick , 02/18/2025 09:00:00 AM, [address] [facility] [address], [address], [place], [address],
--- OUTSIDE RECORDS SUMMARY | 2024-10-15 10:54 | XMS_ITS ---
Author Organization [facility] Address [address] [place] [address] Care Team Providers Care Braider Setter Name Role Phone Wood Lamar MD Primary Care Provider Pedro Thompson Unavailable [phone] ALLERGIES Allergen (clinical drug ingredient) Drug/Non Drug [...] adenomatous polyp of colon (Z86.010) Active confirmed 528010873 VITAL SIGNS BMI 26.97 kg/m2 06/19/2023 Blood pressure systolic 000 mm Hg 06/19/20 23 Blood pressure diastolic 00 mm Hg 023 Height 68.5 in 06/19/2023 Temperature 97.4 degrees Fahrenheit 06/19/20 23 Weight 180 lbs 06/19/2023 Encounters Encounter Location Date Provider Diagnosis [facility] [address] [place] [address] 06/19/2023 Pedro Hedrick Family history of colon [...] Provider Name:Pedro Hedrick , 02/18/2025 09:00:00 AM, [address] [place] [address], [address], [place], [address], Progress Notes * Examination Category Sub-Category Detail [...]
--- OUTSIDE RECORDS SUMMARY | 2024-10-15 10:54 | XMS_ITS ---
Author Organization [facility] Address [address] [place] [address] Care Team Providers Care Manager Test Name Role Phone Wood Lamar MD Primary Care Provider Pedro Thompson Unavailable [phone] ALLERGIES Allergen (clinical drug ingredient) Drug/Non Drug [...] fibrosis (K74.00) Active confirmed Hepatic fibrosis (disorder) (67142191) Problem Fatty liver (K76.0) Active confirmed Fatty liver (730237579) Problem Elevated liver function tests (R94.5) Active confirmed Elevated liver enzymes level (007314428) VITAL SIGNS BMI 28.77 kg/m2 02/19/2024 Blood pressure systolic 000 mm Hg 02/19/20 24 Blood pressure diastolic 00 mm Hg 024 Height 68.5 in 02/19/2024 Temperature 98.6 degrees Fahrenheit 02/19/20 24 Weight 192 lbs 02/19/2024 Encounters Encounter Location Date Provider Diagnosis [facility] [address] [place] [address] 02/19/2024 Pedro Hedrick Liver fibrosis K74.00 ; [...] Name:Pedro Hedrick , 02/18/2025 09:00:00 AM, [address] [facility], [address], [place], [address], Progress Notes * Examination Category Sub-Category Detail [...]
--- OUTSIDE RECORDS SUMMARY | 2024-10-15 10:54 | XMS_ITS | Patient Health Record ---
Author Organization [facility] Address [address] [place] [address] Care Team Providers Care Financial Representative Name Role Phone Brianda JACOBS, Wood Primary Care Provider Pedro Thompson Unavailable [phone] ALLERGIES Allergen (clinical drug ingredient) Drug/Non Drug Allergy documented on EMR Reaction Allergy Type Onset Date Status ragweed (uncoded) Unknown Allergy Ac tive RESULTS Component Value Reference Range Notes Therapeutic Phlebotomy Reviewed date:10/19/2023 01:31:08 PM Interpretation: Performing Lab:[facility], [address] [place] [phone] Notes/Report: THER/HGB 15.6 14.0-18.0 g/dL THER/HCT TNP 42.0-52.0 % Therapeutic Phlebotomy Phlebotomy Performed 500 mls drawn on 10/17/23. Please note that a copy of this report has been sent to the Primary Care Physician, the ordering physician and any physician designated by patient request. Therapeutic Phlebotomy Reviewed date:11/18/2023 10:08:07 PM Interpretation: Performing Lab:[facility], [address] [place] [phone] Notes/Report: THER/HGB 15.9 14.0-18.0 g/dL THER/HCT TNP 42.0-52.0 % Therapeutic Phlebotomy Phlebotomy Performed 500 mls drawn on 11/18/23. Please note that a copy of this report has been sent to the Primary Care Physician, the ordering physician and any physician designated by patient request. Liver Panel Reviewed date:01/07/2024 10:47:21 PM Interpretation: Performing Lab:[facility], [address] [place] [phone] Notes/Report: Bilirubin Total 1.2 0.0-1.0 mg/dL Bilirubin Direct 0.4 0.0-0.5 mg/dL Aspartate Amino Transferase 49 5-37 U/L Alanine Aminotransferase 48 0-40 U/L Total Protein 7.1 6.5-8.0 g/dL Albumin Level 4.1 3.5-5.0 g/dL Alkaline Phosphatase 140 39-117 U/L IRON PROFILE Reviewed date:12/19/2023 01:03:44 PM Interpretation: Performing Lab:[facility], [address] [place] [phone] Notes/Report: Iron 205 45-160 mcg/dL Total Iron Binding Capacity 381 228-428 mcg/d L Percent Iron Saturation 54 15-50 % Unsaturated Iron Binding 176 Ferritin Reviewed date:01/16/2024 06:27:23 PM Interpretation: Performing Lab:[facility], [address] [place] [phone] Notes/Report: Ferritin 162 20-250 ng/mL Therapeutic Phlebotomy Reviewed date:12/19/2023 01:15:47 PM Interpretation: Performing Lab:[facility], [address] [place] [phone] Notes/Report: THER/HGB 15.3 14.0-18.0 g/dL THER/HCT TNP 42.0-52.0 % Therapeutic Phlebotomy Phlebotomy Performed 500 mls drawn on 12/19/23. Please note that a copy of this report has been sent to the Primary Care Physician, the ordering physician and any physician designated by patient request. Therapeutic Phlebotomy Reviewed date:01/16/2024 06:27:33 PM Interpretation: Performing Lab:[facility], [address] [place] [phone] Notes/Report: THER/HGB 16.5 14.0-18.0 g/dL THER/HCT TNP 42.0-52.0 % Therapeutic Phlebotomy Phlebotomy Performed 500 mls drawn on 01/16/24. Please note that a copy of this report has been sent to the Primary Care Physician, the ordering physician and any physician designated by patient request. Therapeutic Phlebotomy Reviewed date:02/17/2024 04:38:43 PM Interpretation: Performing Lab:[facility], [address] [place] [address] Notes/Report: THER/HGB 15.1 14.0-18.0 g/dL THER/HCT TNP 42.0-52.0 % Therapeutic Phlebotomy Phlebotomy Performed 500 mls drawn on 02/17/24. Please note that a copy of this report has been sent to the Primary Care Physician, the ordering physician and any physician designated by patient request. US abdomen comp w elastograp hy (Not yet reviewed by provider) Interpretation: Performing Lab: Notes/Report: [address] [address] Ultrasound Report Signed Patient: Krut Thacker MR#: [id number] : 1955 Acct:[id number] Age/Sex: 68 / M ADM Date: 03/03/24 Loc: HO.US Attending Dr: Pedro Hedrick MD Ordering Physician: Pedro Hedrick Date of Service: 03/03/24 Procedure(s): US abdomen comp w elastography Accession Number(s): [id number] cc: Wood Lamar MD; Pedro Hedrick EXAMINATION: [...] in OV> 03/13/24 1824 DD/ 0943 TD/TT: Auto Engine Mechanic: JEMAL Therapeutic Phlebotomy Reviewed date:08/10/2024 11:03:57 PM Interpretation: Performing Lab:[address] [address] Notes/Report: THER/HGB 14.5 14.0-18.0 g/dL THER/HCT TNP 42.0-52.0 % Therapeutic Phlebotomy Phlebotomy Performed 500 mls drawn on 04/14/24. Please note that a copy of this report has been sent to the Primary Care Physician, the ordering physician and any physician designated by patient request. Liver Panel Reviewed date:08/10/2024 11:03:24 PM Interpretation: Performing Lab:[facility], [address] [place] [phone] Notes/Report: Bilirubin Total 0.8 0.0-1.0 mg/dL Bilirubin Direct 0.3 0.0-0.5 mg/dL Aspartate Amino Transferase 74 5-37 U/L Alanine Aminotransferase 53 0-40 U/L Total Protein 7.2 6.5-8.0 g/dL Albumin Level 4.3 3.5-5.0 g/dL Alkaline Phosphatase 143 39-117 U/L IRON PROFILE Reviewed date:06/15/2024 11:28:56 PM Interpretation: Performing Lab:[address] [address] Notes/Report: Iron 108 45-160 mcg/dL Total Iron Binding Capacity 349 228-428 mcg/d L Percent Iron Saturation 31 15-50 % Unsaturated Iron Binding 241 Ferritin Reviewed date:07/05/2024 05:22:35 PM Interpretation: Performing Lab:[facility], [address] [place] [phone] Notes/Report: Ferritin 276 20-250 ng/mL Therapeutic Phlebotomy Reviewed date:06/16/2024 12:41:45 PM Interpretation: Performing Lab:[facility], [address] [place] [address] Notes/Report: THER/HGB 13.9 14.0-18.0 g/dL THER/HCT TNP 42.0-52.0 % Therapeutic Phlebotomy Phlebotomy Performed 500 mls drawn on 06/15/24. Please note that a copy of this report has been sent to the Primary Care Physician, the ordering physician and any physician designated by patient request. Therapeutic Phlebotomy Reviewed date:08/10/2024 11:03:35 PM Interpretation: Performing Lab:[facility], [address] [place] [address] Notes/Report: THER/HGB 13.3 14.0-18.0 g/dL THER/HCT TNP [...] Problem Colon cancer screening (Z12.11) Active confirmed 042409785 Problem History of adenomatous polyp of colon (Z86.010) Active confirmed 442622477 Problem Diverticulosis of large intestine without perforation or abscess without bleeding (K57.30) Active confirmed Diverticul ar disease of colon (252105909) Problem Elevated liver function tests (R79.89) Active confirmed 663587213 Problem Preprocedural examination (Z01.818) Active confirmed 113589265891465 Problem Fatty liver (K76.0) Active confirmed Fatty liver (492012866) Problem Family history of colon cancer (Z80.0) Active confirmed 160022855 Problem Iron excess (E83.19) Active confirmed 50021476 Problem Elevated liver function tests (R94.5) Active confirmed Elevated liver enzymes level (750270545) Problem Liver fibrosis (K74.00) Active confirmed Hepatic fibrosi s (disorder) (03993465) VITAL SIGNS Temperature 98.6 degrees Fahrenheit 02/19/2024 Blood pressure diastolic 00 mm Hg 02/19/2024 Height 68.5 in 02/19/2024 Blood pressure systolic 000 mm Hg 02/19/2024 Weight 192 lbs 02/19/2024 BMI 28.77 kg/m2 02/19/2024 Encounters Encounter Location Date Provider Diagnosis [facility] [address] [place] [address] 02/19/2024 Pedro Hedrick Liver fibrosis K74.00 ; Iron excess E83.19 ; Fatty liver K76.0 and Elevated liver function tests R94.5 [facility] [address] [place] [address] 02/24/2024 Pedro Hedrick ASSESSMENTS Encounter Date Diagnosis [...] , 02/18/2025 09:00:00 AM, [address] [facility], [address], [place], [address], Insurance Providers Payer Name Payer Address Payer Phone Subscriber Number Group Number Insured Name Patient Relationship to Insured Coverage Start Date Coverage End Date [facility] [address] [place], [place] [id number] KURT THACKER Self - patient is the insured MEDICAL (GENERAL) HISTORY Medical History History ICD Code Hypertension Denies PR,DM,CVA,Lung disease,renal dise ase Gout Neg. screening colonoscopy [...]
[2024-10-15 11:53] LABS: Alanine Aminotransferase 45 U/L (0-40); Albumin Level 4.5 g/dL (3.5-5.0); Aspartate Amino Transferase 60 U/L (5-37); Bilirubin Direct 0.2 mg/dL (0.0-0.5); Bilirubin Total 0.7 mg/dL (0.0-1.0); Iron 87 mcg/dL (45-160); Percent Iron Saturation 24 % (15-50); Total Iron Binding Capacity 360 mcg/dL (228-428); Total Protein 7.1 g/dL (6.5-8.0); Unsaturated Iron Binding 273 ug/dL
[2024-10-15 12:30] LABS: Ferritin 193 ng/mL (20-250)
[2024-10-15 12:44] LABS: Alkaline Phosphatase 108 U/L (39-117)
== END 2024-10-15 10:52 | disposition home or self-care (01) ==
LOC: HO.BBR 10:51
PROVIDERS: PCP Internal Medicine; Visit Provider Internal Medicine
DX: E83.19 Other disorders of iron metabolism (principal)
CPT/HCPCS: 36415; 80076; 82728; 83540; 85018; 99195

== ENCOUNTER 2024-12-17 10:53 | Outpatient (REF) | payer MEDICARE, SELFPAY ==
[2024-12-17 12:34] LABS: Alanine Aminotransferase 37 U/L (0-40); Albumin Level 4.3 g/dL (3.5-5.0); Alkaline Phosphatase 105 U/L (39-117); Aspartate Amino Transferase 40 U/L (5-37); Bilirubin Direct 0.3 mg/dL (0.0-0.5); Bilirubin Total 0.9 mg/dL (0.0-1.0); Iron 126 mcg/dL (45-160); Percent Iron Saturation 38 % (15-50); Total Iron Binding Capacity 335 mcg/dL (228-428); Total Protein 7.2 g/dL (6.5-8.0); Unsaturated Iron Binding 209 ug/dL
[2024-12-17 12:49] LABS: Ferritin 126 ng/mL (20-250)
--- OUTSIDE RECORDS SUMMARY | 2024-12-17 12:57 | XMS_ITS ---
Author Organization [facility] Address [address] [place] [address] Care Team Providers Care Account Manager Employee Benefits Name Role Phone Wood Lamar MD Primary Care Provider Pedro Thompson Unavailable [phone] ALLERGIES Allergen (clinical drug ingredient) Drug/Non Drug [...] adenomatous polyp of colon (Z86.010) Active confirmed 950675296 VITAL SIGNS Temperature 97.4 degrees Fahrenheit 06/19/20 23 Blood pressure systolic 000 mm Hg 06/19/20 23 Blood pressure diastolic 00 mm Hg 023 Height 68.5 in 06/19/2023 Weight 180 lbs 06/19/2023 BMI 26.97 kg/m2 06/19/2023 Encounters Encounter Location Date Provider Diagnosis [facility] [address] [place] [address] 06/19/2023 Pedro Hedrick Family history of colon [...] Provider Name:Pedro Hedrick , 02/18/2025 09:00:00 AM, [address] [place] [address], [address], [place], [address], Progress Notes * Examination Category Sub-Category Detail [...]
--- OUTSIDE RECORDS SUMMARY | 2024-12-17 12:57 | XMS_ITS ---
Author Organization [facility] Address [address] [place] [address] Care Team Providers Care Agriculture Specialist Name Role Phone Wood Lamar MD Primary Care Provider Pedro Thompson Unavailable [phone] ALLERGIES Allergen (clinical drug ingredient) Drug/Non Drug [...] fibrosis (K74.00) Active confirmed Hepatic fibrosis (disorder) (22657630) Problem Fatty liver (K76.0) Active confirmed Fatty liver (271580737) Problem Elevated liver function tests (R94.5) Active confirmed Elevated liver enzymes level (515012207) VITAL SIGNS Temperature 98.6 degrees Fahrenheit 02/19/20 24 Blood pressure systolic 000 mm Hg 02/19/20 24 Blood pressure diastolic 00 mm Hg 024 Height 68.5 in 02/19/2024 Weight 192 lbs 02/19/2024 BMI 28.77 kg/m2 02/19/2024 Encounters Encounter Location Date Provider Diagnosis [facility] [address] [place] [address] 02/19/2024 Pedro Hedrick Liver fibrosis K74.00 ; [...] Name:Pedro Hedrick , 02/18/2025 09:00:00 AM, [address] [facility], [address], [place], [address], Progress Notes * Examination Category Sub-Category Detail [...]
--- OUTSIDE RECORDS SUMMARY | 2024-12-17 12:57 | XMS_ITS ---
Author Organization [facility] Address [address] [place] [address] Care Team Providers Care Trimmer And Borer Machine Operator Name Role Phone Wood Lamar MD Primary Care Provider Pedro Thompson Unavailable [phone] Encounters Encounter Location Date Provider Diagnosis [facility] [address] [facility] [address] [place] [address] 02/24/2024 Pedro Hedrick PLAN OF TREATMENT Next Appt Details Provider Name:Pedro Hedrick , 02/18/2025 09:00:00 AM, [address] [facility], [address], [place], [address],
--- OUTSIDE RECORDS SUMMARY | 2024-12-17 12:57 | XMS_ITS | Patient Health Record ---
Author Organization [facility] Address [address] [place] [address] Care Team Providers Care Study Abroad Advisor Name Role Phone Brianda JACOBS, Wood Primary Care Provider Pedro Thompson Unavailable [phone] ALLERGIES Allergen (clinical drug ingredient) Drug/Non Drug Allergy documented on EMR Reaction Allergy Type Onset Date Status ragweed (uncoded) Unknown Allergy Ac tive RESULTS Component Value Reference Range Notes Liver Panel Reviewed date:01/07/2024 10:47:21 PM Interpretation: Performing Lab:[facility], [address] [place] [address] Notes/Report: Bilirubin Total 1.2 0.0-1.0 mg/dL Bilirubin Direct 0.4 0.0-0.5 mg/dL Aspartate Amino Transferase 49 5-37 U/L Alanine Aminotransferase 48 0-40 U/L Total Protein 7.1 6.5-8.0 g/dL Albumin Level 4.1 3.5-5.0 g/dL Alkaline Phosphatase 140 39-117 U/L IRON PROFILE Reviewed date:12/19/2023 01:03:44 PM Interpretation: Performing Lab:[facility], [address] [place] [address] Notes/Report: Iron 205 45-160 mcg/dL Total Iron Binding Capacity 381 228-428 mcg/d L Percent Iron Saturation 54 15-50 % Unsaturated Iron Binding 176 Ferritin Reviewed date:01/16/2024 06:27:23 PM Interpretation: Performing Lab:[facility], [address] [place] [address] Notes/Report: Ferritin 162 20-250 ng/mL Therapeutic Phlebotomy Reviewed date:12/19/2023 01:15:47 PM Interpretation: Performing Lab:[address] [address] Notes/Report: THER/HGB 15.3 14.0-18.0 g/dL THER/HCT TNP 42.0-52.0 % Therapeutic Phlebotomy Phlebotomy Performed 500 mls drawn on 12/19/23. Please note that a copy of this report has been sent to the Primary Care Physician, the ordering physician and any physician designated by patient request. Therapeutic Phlebotomy Reviewed date:01/16/2024 06:27:33 PM Interpretation: Performing Lab:[address] [address] Notes/Report: THER/HGB 16.5 14.0-18.0 g/dL THER/HCT TNP 42.0-52.0 % Therapeutic Phlebotomy Phlebotomy Performed 500 mls drawn on 01/16/24. Please note that a copy of this report has been sent to the Primary Care Physician, the ordering physician and any physician designated by patient request. Therapeutic Phlebotomy Reviewed date:02/17/2024 04:38:43 PM Interpretation: Performing Lab:[facility], [address] [place] [address] Notes/Report: THER/HGB 15.1 14.0-18.0 g/dL THER/HCT TNP 42.0-52.0 % Therapeutic Phlebotomy Phlebotomy Performed 500 mls drawn on 02/17/24. Please note that a copy of this report has been sent to the Primary Care Physician, the ordering physician and any physician designated by patient request. US abdomen comp w elastograp hy (Not yet reviewed by provider) Interpretation: Performing Lab: Notes/Report: [address] [address] Ultrasound Report Signed Patient: Kurt Thacker MR#: [id number] : 1955 Acct:[id number] Age/Sex: 68 / M ADM Date: 03/03/24 Loc: HO.US Attending Dr: Pedro Hedrick MD Ordering Physician: Pedro Hedrick Date of Service: 03/03/24 Procedure(s): US abdomen comp w elastography Accession Number(s): [id number] cc: Wood Lamar MD; Pedro Hedrick EXAMINATION: [...] in OV> 03/13/24 1824 DD/ 0943 TD/TT: Clip Coater: JEMAL Therapeutic Phlebotomy Reviewed date:08/10/2024 11:03:57 PM Interpretation: Performing Lab:[address] [address] Notes/Report: THER/HGB 14.5 14.0-18.0 g/dL THER/HCT TNP 42.0-52.0 % Therapeutic Phlebotomy Phlebotomy Performed 500 mls drawn on 04/14/24. Please note that a copy of this report has been sent to the Primary Care Physician, the ordering physician and any physician designated by patient request. Liver Panel Reviewed date:08/10/2024 11:03:24 PM Interpretation: Performing Lab:[address] [address] Notes/Report: Bilirubin Total 0.8 0.0-1.0 mg/dL Bilirubin Direct 0.3 0.0-0.5 mg/dL Aspartate Amino Transferase 74 5-37 U/L Alanine Aminotransferase 53 0-40 U/L Total Protein 7.2 6.5-8.0 g/dL Albumin Level 4.3 3.5-5.0 g/dL Alkaline Phosphatase 143 39-117 U/L IRON PROFILE Reviewed date:06/15/2024 11:28:56 PM Interpretation: Performing Lab:[facility], [address] [place] [address] Notes/Report: Iron 108 45-160 mcg/dL Total Iron Binding Capacity 349 228-428 mcg/d L Percent Iron Saturation 31 15-50 % Unsaturated Iron Binding 241 Ferritin Reviewed date:07/05/2024 05:22:35 PM Interpretation: Performing Lab:[facility], [address] [place] [address] Notes/Report: Ferritin 276 20-250 ng/mL Therapeutic Phlebotomy Reviewed date:06/16/2024 12:41:45 PM Interpretation: Performing Lab:[facility], [address] [place] [address] Notes/Report: THER/HGB 13.9 14.0-18.0 g/dL THER/HCT TNP 42.0-52.0 % Therapeutic Phlebotomy Phlebotomy Performed 500 mls drawn on 06/15/24. Please note that a copy of this report has been sent to the Primary Care Physician, the ordering physician and any physician designated by patient request. Therapeutic Phlebotomy Reviewed date:08/10/2024 11:03:35 PM Interpretation: Performing Lab:[facility], [address] [place] [address] Notes/Report: THER/HGB 13.3 14.0-18.0 g/dL THER/HCT TNP 42.0-52.0 % Therapeutic Phlebotomy Phlebotomy Performed 500 mls drawn on 08/10/24. Please note that a copy of this report has been sent to the Primary Care Physician, the ordering physician and any physician designated by patient request. Liver Panel Reviewed date:10/16/2024 09:16:54 PM Interpretation: Performing Lab:[facility], [address] [place] [phone] Notes/Report: Bilirubin Total 0.7 0.0-1.0 mg/dL Bilirubin Direct 0.2 0.0-0.5 mg/dL Aspartate Amino Transferase 60 5-37 U/L Alanine Aminotransferase 45 0-40 U/L Total Protein 7.1 6.5-8.0 g/dL Albumin Level 4.5 3.5-5.0 g/dL Alkaline Phosphatase 108 39-117 U/L IRON PROFILE Reviewed date:10/16/2024 09:17:05 PM Interpretation: Performing Lab:[facility], [address] [place] [phone] Notes/Report: Iron 87 45-160 mcg/dL Total Iron Binding Capacity 360 228-428 mcg/d L Percent Iron Saturation 24 15-50 % Unsaturated Iron Binding 273 Ferritin Reviewed date:10/16/2024 09:15:19 PM Interpretation: Performing Lab:[facility], [address] [place] [phone] Notes/Report: Ferritin 193 20-250 ng/mL Therapeutic Phlebotomy Reviewed date:10/16/2024 09:17:18 PM Interpretation: Performing Lab:[facility], [address] [place] [address] Notes/Report: THER/HGB 13.5 14.0-18.0 g/dL THER/HCT TNP 42.0-52.0 % Therapeutic Phlebotomy Phlebotomy Performed 500 mls drawn on 10/15/24. Please note that a copy of this report has been sent to the Primary Care Physician, the ordering physician and any physician designated by patient request. Liver Panel (Not yet review ed by provider) Interpretation: Performing Lab:[address] [address] Notes/Report: Bilirubin Total 0.9 0.0-1.0 mg/dL Bilirubin Direct 0.3 0.0-0.5 mg/dL Aspartate Amino Transferase 40 5-37 U/L Alanine Aminotransferase 37 0-40 U/L Total Protein 7.2 6.5-8.0 g/dL Albumin Level 4.3 3.5-5.0 g/dL Alkaline Phosphatase 105 39-117 U/L IRON PROFILE (Not yet review ed by provider) Interpretation: Performing Lab:[facility], [address] [place] [address] Notes/Report: Iron 126 45-160 mcg/dL Total Iron Binding Capacity 335 228-428 mcg/d L Percent Iron Saturation 38 15-50 % Unsaturated Iron Binding 209 Ferritin (Not yet reviewed by provider) Interpretation: Performing Lab:[facility], [address] [place] [address] Notes/Report: Ferritin 126 20-250 ng/mL Therapeutic Phlebotomy Reviewed date:12/17/2024 12:36:38 PM Interpretation: Performing Lab:[facility], [address] [place] [address] Notes/Report: THER/HGB 13.0 14.0-18.0 g/dL THER/HCT TNP 42.0-52.0 % Therapeutic Phlebotomy Phlebotomy Performed 500 mls drawn on 12/17/24. Please note that a copy of this [...] Problem Colon cancer screening (Z12.11) Active confirmed 486214092 Problem History of adenomatous polyp of colon (Z86.010) Active confirmed 087975381 Problem Diverticulosis of large intestine without perforation or abscess without bleeding (K57.30) Active confirmed Diverticul ar disease of colon (080045666) Problem Elevated liver function tests (R79.89) Active confirmed 363201921 Problem Preprocedural examination (Z01.818) Active confirmed 359478194466439 Problem Fatty liver (K76.0) Active confirmed Fatty liver (616587376) Problem Family history of colon cancer (Z80.0) Active confirmed 446406927 Problem Iron excess (E83.19) Active confirmed 10448150 Problem Elevated liver function tests (R94.5) Active confirmed Elevated liver enzymes level (529974899) Problem Liver fibrosis (K74.00) Active confirmed Hepatic fibrosi s (disorder) (81159973) VITAL SIGNS Temperature 98.6 degrees Fahrenheit 02/19/2024 Blood pressure diastolic 00 mm Hg 02/19/2024 Height 68.5 in 02/19/2024 Blood pressure systolic 000 mm Hg 02/19/2024 Weight 192 lbs 02/19/2024 BMI 28.77 kg/m2 02/19/2024 Encounters Encounter Location Date Provider Diagnosis [facility] [address] [place] [address] 02/19/2024 Pedro Hedrick Liver fibrosis K74.00 ; Iron excess E83.19 ; Fatty liver K76.0 and Elevated liver function tests R94.5 [facility] [address] [place] [address] 02/24/2024 Pedro Hedrick ASSESSMENTS Encounter Date Diagnosis [...] Test Test Name Order Date LIVER PROFILE 10/31/2022 LIVER PROFILE 02/19/2024 IRON + IBC (FE) 12/02/2022 IRON + IBC (FE) 10/31/2022 CBC w DIFF 12/02/2022 CBC w DIFF 10/31/2022 HEPATITIS B, C PROFILE 10/31/2022 ALPHA-FETOPROTEIN,TUMOR MARKER US LIVER BIOPSY CORE GUIDE 12/02/2022 FLUOR. ANTINUCLEAR AB SCREEN (OLEG) 10/21 US ABDOMEN COMP WITH ELASTOGRAPHY 2022 Prothrombin Time INR 10/31/2022 Prothrombin Time INR 12/02/2022 Partial Thromboplastin Time 12/02/2022 Liver Panel 12/17/2024 IRON PROFILE 12/17/2024 Ferritin 10/31/2022 Ferritin 12/17/2024 Ferritin 12/02/2022 Alpha 1 Anti-trypsin 10/31/2022 Liver Fibrosis Pnl 10/31/2022 Iron Liver Tissue 12/02/2022 Mitochondrial Antibody 10/31/2022 Smooth Muscle Antibody 10/31/2022 US abdomen comp w elastography US abdomen comp w elastography US biopsy liver 01/14/2023 Future Test Test Name Order Date COLONOSCOPY 01/26/2015 COLONOSCOPY 10/31/2022 Next Appt Details Provider Name:Pedro Hedrick , 02/18/2025 09:00:00 AM, [address] [place] [address], [address], [place], [address], Insurance Providers Payer Name Payer Address Payer Phone Subscriber Number Group Number Insured Name Patient Relationship to Insured Coverage Start Date Coverage End Date [facility] [address] [place], [place] [id number] [phone] [id number] KURT THACKER Self - patient is the insured MEDICAL (GENERAL) HISTORY Medical History History ICD Code Hypertension Denies [place],DM,CVA,Lung disease,renal dise ase Gout Neg. screening colonoscopy in 12/[address] Sharif Neg. screening colonoscopy in 07/2015 Elevated [...]
== END 2024-12-17 10:54 | disposition home or self-care (01) ==
LOC: HO.BBR 10:53
PROVIDERS: PCP Internal Medicine; Referring Provider Internal Medicine; Visit Provider Internal Medicine
DX: E83.19 Other disorders of iron metabolism (principal)
CPT/HCPCS: 36415; 80076; 82728; 83540; 85014; 85018; 99195

== ENCOUNTER 2024-12-25 08:56 | Outpatient (REF) | payer MEDICARE, SELFPAY ==
[2024-12-25 09:08] LABS: MANUAL DIFF FLAG NO
[2024-12-25 09:18] LABS: Basophils Percent Auto 0.4 % (0-2); Eosinophils Absolute Auto 0.2 X10*3/uL (0.0-0.4); Hematocrit 37.9 % (42.0-52.0); Hemoglobin 13.4 g/dl (14.0-18.0); Imm Gran Abs Auto 0.01 X10*3/uL (0.00-0.03); Imm Gran Pct Auto 0.2 % (0.0-0.4); Lymphocytes Absolute Auto 1.5 X10*3/uL (1.2-4.9); Lymphocytes Percent Auto 26.8 % (20-40); Mean Corpuscular HGB Conc 35.4 g/dl (31.0-36.0); Mean Corpuscular Hemoglobin 35.6 pg (27.0-33.0); Mean Corpuscular Volume 100.8 fL (80.0-98.0); Mean Platelet Volume 9.5 fL (9.4-12.4); Monocytes Absolute Auto 0.8 X10*3/uL (0.1-1.2); Neutrophils Absolute Auto 3.1 x10*3/uL (2.0-8.3); Neutrophils Percent Auto 54.6 % (45-73); Platelet Count 172 X10*3/uL (160-400); Red Blood Count 3.76 X10*6/uL (4.60-5.80); Red Cell Distribution Width 12.7 % (11.0-16.0); White Blood Count 5.7 X10*3/uL (4.8-10.8)
--- OUTSIDE RECORDS SUMMARY | 2024-12-25 09:40 | XMS_ITS ---
Author Organization [facility] Address [address] [place] [address] Care Team Providers Care Nursing Education Consultant Name Role Phone Wood Lamar MD Primary Care Provider Pedro Thompson [phone] Encounters Encounter Location Date Provider Diagnosis [facility] [address] [facility] [address] [place] [address] 02/24/2024 Pedro Hedrick Plan Of Treatment Next Appt Details Provider Name:Pedro Hedrick , 02/18/2025 09:00:00 AM, [address], [address], [place], [address], Progress Notes * DELON JOHNSONOB:1955 ([age] yo M)Acc No.[id number]:02/24/2024 Patient:?ELIZABETH CHRISTEL :1955???Age:68 Y???Sex:Male Address:[address] [place] [address] [facility] [place], [address] * true * Date:? Generated for Deepaki allen/Santiago/eTransmitting on:?12/25/2024 09:40 AM EST
--- OUTSIDE RECORDS SUMMARY | 2024-12-25 09:40 | XMS_ITS | Patient Health Record ---
Author Organization [facility] Address [address] [place] [address] Care Team Providers Care Steward/Stewardess Third Class Name Role Phone Brianda JACOBS, Wood Primary Care Provider Pedro Thompson Unavailable [phone] Allergies Allergen (clinical drug ingredient) Drug/Non Drug Allergy documented on EMR Reaction Allergy Type Onset Date Status ragweed (uncoded) Unknown Allergy Ac tive Results Component Value Reference Range Notes Therapeutic Phlebotomy Reviewed date:01/16/2024 06:27:33 PM Interpretation: Performing Lab:[facility], [address] [place] [phone] Notes/Report: THER/HGB 16.5 14.0-18.0 g/dL THER/HCT TNP 42.0-52.0 % Therapeutic Phlebotomy Phlebotomy Performed 500 mls drawn on 01/16/24. Please note that a copy of this report has been sent to the Primary Care Physician, the ordering physician and any physician designated by patient request. Therapeutic Phlebotomy Reviewed date:02/17/2024 04:38:43 PM Interpretation: Performing Lab:[facility], [address] [place] [phone] Notes/Report: THER/HGB 15.1 14.0-18.0 g/dL THER/HCT TNP 42.0-52.0 % Therapeutic Phlebotomy Phlebotomy Performed 500 mls drawn on 02/17/24. Please note that a copy of this report has been sent to the Primary Care Physician, the ordering physician and any physician designated by patient request. 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 COMPARISON: None available. TECHNIQUE: Real-time imaging of the abdominal viscera. Noninvasive ultrasound liver fibrosis assessment is performed using Андрей Elast[employer] point quantification shear wave elastography (2D-SWE) with a C5-2 MHz transducer. Multiple elastography samples are obtained. FINDINGS: PANCREAS: Normal. Th e visualized pancreatic head and body are normal in appearance. The remainder of the pancreas is obscured from visualization by the overlying bowel gas. ABDOMINAL AORTA: The proximal, middle, and distal aortic segments are normal in caliber. INFERIOR VENA CAVA: Visualized portions are normal. LIVER: The liver demonstrates normal size, contour and increased echogenicity. No foc al lesion or intrahepatic biliary duct dilatation. The right lobe measu res 13.8 cm in length. The left lobe measures 9.1 cm in length. Portal flow is towar ds the liver (hepatopetal). Shear wave liver elastography median stiffness is 2.77 m/s (reference: normal median stiffn ess is 1.3 m/s or less). IQR/median stiffness to assess sampling precision is 0.05 (reference: good quality data se t is IQR/median stiffness of 0.15 or less). GALLBLADDER: Normal. The gallbladder is physiologically distended without evidence of stones, sludge, polyps, wall thickening or pericholecystic fluid. COMMON BILE DUCT: No rmal in caliber measuring 0.3 cm in diameter. RIGHT KIDNEY: Normal . No hydronephrosis. No renal calculi or focal parenchymal lesions. The kidney measures 12.0 cm in maximum dimension. LEFT KIDNEY: There i s mild pelviectasis, without magaly hydronephrosis. No renal calculi or focal parenchymal lesions. The kidney measures 11.2 cm in maximum dimension. SPLEEN: Normal. The spleen measures 8.9 cm in maximum dimension. FREE FLUID: None. U S/US abdomen comp w elastography IMPRESSION: 1. There is generali zed increase in hepatic echotexture, consistent with fatty infiltrat ion or hepatocellular disease. Please correlate clinically. No focal hepatic mass or intrahepatic biliary dilatation is seen. 2. Liver elastograph y: Measurements are suggestive of clinically significant portal hypertension. When compared with prior exam, there is a statistically significant increase in liver stiffness (increase at least 10%). REFERENCE: Society of Radi[employer]i sts in Ultrasound Liver Stiffness Thresholds (2019): LIVER STIFFNESS THRESHOLDS: *Liver Stiffness equ al or less than 1.3 m/s: High probability of being normal. *Liver Stiffness les s than 1.7 m/s: In the absence of other known clinical signs, rule s out compensated advanced chronic liver disease. *Liver Stiffness 1.7 -2.1 m/s: Suggestive of compensated advanced chronic liver diseas e but need further test for confirmation. *Liver Stiffness ove r 2.1 m/s: Rules in compensated advanced chronic liver disease. *Liver Stiffness ove r 2.4 m/s: Suggestive of clinically significant portal hypertension. QUALITY OF DATA SET: *IQR/Median value eq ual or less than 0.15 implies a quality data set. *IQR/Median value ov er 0.15 implies a poor quality data set. SIGNIFICANT CHANGE F ROM PRIOR EXAM: Significant change i f liver stiffness measurement is 10% or greater from prior exam. OTHER CONSIDERATIONS: The stage of liver fibrosis may be overestimated in the setting of acute hepatitis, tammie er inflammation, elevated liver function tests, hepatic vascular congestion, obstructive cholestasis, non-fasting state, and infiltrat hermilo diseases such as amyloidosis and lymphoma. In some patients with NAFLD, the liver stiffness thresholds for compensated advanced chronic liver disease may be lower. In causes other than viral hepatitis and NAFLD, liver stiffness thresholds are not well established. 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 Please note that a copy of this report has been sent to the Primary Care Physician, the ordering physician and any physician designated by patient request. Liver Panel Reviewed date:08/10/2024 11:03:24 PM Interpretation: Performing Lab:[address] [phone] Notes/Report: Bilirubin Total 0.8 0.0-1.0 mg/dL Bilirubin Direct 0.3 0.0-0.5 mg/dL Aspartate Amino Transferase 74 5-37 U/L Alanine Aminotransferase 53 0-40 U/L Total Protein 7.2 6.5-8.0 g/dL Albumin Level 4.3 3.5-5.0 g/dL Alkaline Phosphatase 143 39-117 U/L IRON PROFILE Reviewed date:06/15/2024 11:28:56 PM Interpretation: Performing Lab:[facility], [address] [place] [phone] Notes/Report: Iron 108 45-160 mcg/dL Total Iron Binding Capacity 349 228-428 mcg/dL Percent Iron Saturation 31 15-50 % Unsaturated Iron Binding 241 Ferritin Reviewed date:07/05/2024 05:22:35 PM Interpretation: Performing Lab:[facility], [address] [place] [phone] Notes/Report: Ferritin 276 20-250 ng/mL Therapeutic Phlebotomy Reviewed date:06/16/2024 12:41:45 PM Interpretation: Performing Lab:[facility], [address] [place] [phone] Notes/Report: THER/HGB 13.9 14.0-18.0 g/dL THER/HCT TNP 42.0-52.0 % Therapeutic Phlebotomy Phlebotomy Performed 500 mls drawn on 06/15/24. Please note that a copy of this report has been sent to the Primary Care Physician, the ordering physician and any physician designated by patient request. Therapeutic Phlebotomy Reviewed date:08/10/2024 11:03:35 PM Interpretation: Performing Lab:[address] [phone] Notes/Report: THER/HGB 13.3 14.0-18.0 g/dL THER/HCT TNP 42.0-52.0 % Therapeutic Phlebotomy Phlebotomy Performed 500 mls drawn on 08/10/24. Please note that a copy of this report has been sent to the Primary Care Physician, the ordering physician and any physician designated by patient request. Liver Panel Reviewed date:10/16/2024 09:16:54 PM Interpretation: Performing Lab:[facility], [address] [place] [phone] Notes/Report: Bilirubin Total 0.7 0.0-1.0 mg/dL Bilirubin Direct 0.2 0.0-0.5 mg/dL Aspartate Amino Transferase 60 5-37 U/L Alanine Aminotransferase 45 0-40 U/L Total Protein 7.1 6.5-8.0 g/dL Albumin Level 4.5 3.5-5.0 g/dL Alkaline Phosphatase 108 39-117 U/L IRON PROFILE Reviewed date:10/16/2024 09:17:05 PM Interpretation: Performing Lab:[facility], [address] [place] [phone] Notes/Report: Iron 87 45-160 mcg/dL Total Iron Binding Capacity 360 228-428 mcg/dL Percent Iron Saturation 24 15-50 % Unsaturated Iron Binding 273 Ferritin Reviewed date:10/16/2024 09:15:19 PM Interpretation: Performing Lab:[address] [phone] Notes/Report: Ferritin 193 20-250 ng/mL Therapeutic Phlebotomy Reviewed date:10/16/2024 09:17:18 PM Interpretation: Performing Lab:[address] [phone] Notes/Report: THER/HGB 13.5 14.0-18.0 g/dL THER/HCT TNP 42.0-52.0 % Therapeutic Phlebotomy Phlebotomy Performed 500 mls drawn on 10/15/24. Please note that a copy of this report has been sent to the Primary Care Physician, the ordering physician and any physician designated by patient request. Liver Panel Reviewed date:12/17/2024 07:00:46 PM Interpretation: Performing Lab:[facility], [address] [place] [phone] Notes/Report: Bilirubin Total 0.9 0.0-1.0 mg/dL Bilirubin Direct 0.3 0.0-0.5 mg/dL Aspartate Amino Transferase 40 5-37 U/L Alanine Aminotransferase 37 0-40 U/L Total Protein 7.2 6.5-8.0 g/dL Albumin Level 4.3 3.5-5.0 g/dL Alkaline Phosphatase 105 39-117 U/L IRON PROFILE Reviewed date:12/17/2024 07:00:59 PM Interpretation: Performing Lab:[address] [phone] Notes/Report: Iron 126 45-160 mcg/dL Total Iron Binding Capacity 335 228-428 mcg/dL Percent Iron Saturation 38 15-50 % Unsaturated Iron Binding 209 Ferritin Reviewed date:12/17/2024 07:01:17 PM Interpretation: Performing Lab:[address] [phone] Notes/Report: Ferritin 126 20-250 ng/mL Therapeutic Phlebotomy Reviewed date:12/17/2024 12:36:38 PM Interpretation: Performing Lab:[address] [phone] Notes/Report: THER/HGB 13.0 14.0-18.0 g/dL THER/HCT TNP 42.0-52.0 % Therapeutic Phlebotomy Phlebotomy Performed 500 mls drawn on 12/17/24. Please note that a copy of this report has been sent to the Primary Care Physician, the ordering physician and any physician designated by patient request. Reason For Referral No Information Medications Medication SIG (Take, Route, Fr equency, Duration) Notes Start Date End Date Status Lisinopril 40 MG 1 tablet Orally Once a day Active NIFEdipine ER 30 MG 1 tablet Orally Once a day Active Atenolol 100 MG 1 tablet Orally Once a day Active Allopurinol 150 mg 1 tablet Orally Once a day Not-Taking Immunizations Vaccine Route Administration Date Status Comme nts Influenza Unknown 08/08/2022 Administered Influenza Unknown 08/13/2023 Administered Problems Problem Type SNOMED Code ICD Code Onset Dates Problem Status W/U Status Risk Notes Problem 348874068 Colon cancer screening (Z12.11) Active confirmed Problem 030843040 History of adenomatous polyp of colon (Z86.010) Active confirmed Problem Diverticular disease of colon (837542892) Diverticulosis of large intestine without perforation or abscess without bleeding (K57.30) Active confirmed Problem 175491456 Elevated liver function tests (R79.89) Active confirmed Problem 176518585542118 Preprocedural examination (Z01.818) Active confirmed Problem Fatty liver (361049901) Fatty liver (K76.0) Active confirmed Problem 358374084 Family history o f colon cancer (Z80.0) Active confirmed Problem 11677613 Iron excess (E83.19) Active confirmed Problem Elevated liver enzymes level (842807856) Elevated liver function tests (R94.5) Active confirmed Problem Hepatic fibrosis (disorder) (19672884) Liver fibrosis (K74.00) Active confirmed Vital Signs Temperature 98.6 degrees Fahrenheit 02/19/2024 Blood pressure diastolic 00 mm Hg 02/19/2024 Height 68.5 in 02/19/2024 Blood pressure systolic 000 mm Hg 02/19/2024 Weight 192 lbs 02/19/2024 BMI 28.77 kg/m2 02/19/2024 Encounters Encounter Location Date Provider Diagnosis [facility] [address] [place] [phone] 02/19/2024 Pedro Hedrick Liver fibrosis K74.00 ; Iron excess E83.19 ; Fatty liver K76.0 and Elevated liver function tests R94.5 [facility] [address] [place] [phone] 02/24/2024 Pedro Hedrick Assessments Encounter Date Diagnosis (ICD Code) Assessment Notes Treatment Notes Treatment Clinical Notes Section Notes 02/19/2024 Iron excess (ICD-10 - E83.19) We will have you start doing the phlebotomy every 2 months beginning the end of March,. Overall, Christel appears to be doing well. I did review his marked improvement in his ferritin level with his current phlebotomy schedule. While his iron saturation remains somewhat elevated I advised him that the normal ferritin is the most important issue. At this point I recommended that he begin doing the phlebotomies every 2 months starting in March. I shall continue to check a liver profile and iron profile every 6 months or so. I shall schedule him for a followup abdominal ultrasound and alpha-fetoprotei n level. Given his underlying chronic liver disease in relation to the fatty liver, as well as the elevated iron, I advised him that we should do this yearly as a screening due to his increased risk of hepatoma. At this point I don't think he needs any other specific treatment for the fatty liver and minimally elevated liver enzymes. We did review that dietary discretion, weight loss, and avoidance of alcohol will be important factors to help improve this as well. If things remain stable I will plan to see Christel in one year for a followup visit. I did advise him to contact me prior to that if he has any problems or questions I can be of assistance with. Christel was comfortable with this plan. Thank you again for allowing me to participate in Christel's care. I shall continue to keep you advised of his progress. 02/19/2024 Liver fibrosis (ICD-10 - K74.00) Overall, Christel appears to be doing well. I did review his marked improvement in his ferritin level with his current phlebotomy schedule. While his iron saturation remains somewhat elevated I advised him that the normal ferritin is the most important issue. At this point I recommended that he begin doing the phlebotomies every 2 months starting in March. I shall continue to check a liver profile and iron profile every 6 months or so. I shall schedule him for a followup abdominal ultrasound and alpha-fetoprotei n level. Given his underlying chronic liver disease in relation to the fatty liver, as well as the elevated iron, I advised him that we should do this yearly as a screening due to his increased risk of hepatoma. At this point I don't think he needs any other specific treatment for the fatty liver and minimally elevated liver enzymes. We did review that dietary discretion, weight loss, and avoidance of alcohol will be important factors to help improve this as well. If things remain stable I will plan to see Christel in one year for a followup visit. I did advise him to contact me prior to that if he has any problems or questions I can be of assistance with. Christel was comfortable with this plan. Thank you again for allowing me to participate in Christel's care. I shall continue to keep you advised of his progress. 02/19/2024 Fatty liver (ICD-10 - K76.0) Watch diet, lose wieight, and minimize alcohol intake regarding the fatty liver Overall, Christel appears to be doing well. I did review his marked improvement in his ferritin level with his current phlebotomy schedule. While his iron saturation remains somewhat elevated I advised him that the normal ferritin is the most important issue. At this point I recommended that he begin doing the phlebotomies every 2 months starting in March. I shall continue to check a liver profile and iron profile every 6 months or so. I shall schedule him for a followup abdominal ultrasound and alpha-fetoprotei n level. Given his underlying chronic liver disease in relation to the fatty liver, as well as the elevated iron, I advised him that we should do this yearly as a screening due to his increased risk of hepatoma. At this point I don't think he needs any other specific treatment for the fatty liver and minimally elevated liver enzymes. We did review that dietary discretion, weight loss, and avoidance of alcohol will be important factors to help improve this as well. If things remain stable I will plan to see Christel in one year for a followup visit. I did advise him to contact me prior to that if he has any problems or questions I can be of assistance with. Christel was comfortable with this plan. Thank you again for allowing me to participate in Christel's care. I shall continue to keep you advised of his progress. 02/19/2024 Elevated liver function tests (ICD-10 - R94.5) Overall, Christel appears to be doing well. I did review his marked improvement in his ferritin level with his current phlebotomy schedule. While his iron saturation remains somewhat elevated I advised him that the normal ferritin is the most important issue. At this point I recommended that he begin doing the phlebotomies every 2 months starting in March. I shall continue to check a liver profile and iron profile every 6 months or so. I shall schedule him for a followup abdominal ultrasound and alpha-fetoprotei n level. Given his underlying chronic liver disease in relation to the fatty liver, as well as the elevated iron, I advised him that we should do this yearly as a screening due to his increased risk of hepatoma. At this point I don't think he needs any other specific treatment for the fatty liver and minimally elevated liver enzymes. We did review that dietary discretion, weight loss, and avoidance of alcohol will be important factors to help improve this as well. If things remain stable I will plan to see Crhistel in one year for a followup visit. I did advise him to contact me prior to that if he has any problems or questions I can be of assistance with. Christel was comfortable with this plan. Thank you again for allowing me to participate in Chritsel's care. I shall continue to keep you advised of his progress. Plan Of Treatment Pending Test Test Name Order Date LIVER PROFILE 10/31/2022 LIVER PROFILE 02/19/2024 IRON + IBC (FE) 10/31/2022 IRON + IBC (FE) 12/02/2022 CBC w DIFF 10/31/2022 CBC w DIFF 12/02/2022 HEPATITIS B, C PROFILE 10/31/2022 ALPHA-FETOPROTEIN,TUMOR MARKER US LIVER BIOPSY CORE GUIDE 12/02/2022 FLUOR. ANTINUCLEAR AB SCREEN (OLEG) 10/21 US ABDOMEN COMP WITH ELASTOGRAPHY 2022 Prothrombin Time INR 12/02/2022 Prothrombin Time INR 10/31/2022 Partial Thromboplastin Time 12/02/2022 Ferritin 12/02/2022 Ferritin 10/31/2022 Alpha 1 Anti-trypsin 10/31/2022 Liver Fibrosis Pnl 10/31/2022 Iron Liver Tissue 12/02/2022 Mitochondrial Antibody 10/31/2022 Smooth Muscle Antibody 10/31/2022 US abdomen comp w elastography 4 US abdomen comp w elastography 4 US biopsy liver 01/14/2023 Future Test Test Name Order Date COLONOSCOPY 01/26/2015 COLONOSCOPY 10/31/2022 Next Appt Details Provider Name:Pedro Camarillo Ryley , 02/18/2025 09:00:00 AM, [address] [place] [address], [address], [place], [address], Insurance Providers Payer Name Payer Address Payer Phone Subscriber Number Group Number Insured Name Patient Relationship to Insured Coverage Start Date Coverage End Date [facility] [address] [place], [place] [id number] CHRISTEL THACKER Self - patient is the insured Medical (General) History Medical History History ICD Code Hypertension Denies [place],DM,CVA,Lung disease,renal dise ase Gout Neg. screening colonoscopy [...]
--- OUTSIDE RECORDS SUMMARY | 2024-12-25 09:40 | XMS_ITS ---
Author Organization [facility] Address [address] [place] [id number] Care Team Providers Care Toe Stripper Name Role Phone Wood Lamar MD Primary Care Provider Pedro Thompson Unavailable [phone] Allergies Allergen (clinical drug ingredient) Drug/Non Drug Allergy documented on EMR Reaction Allergy Type Onset Date Status ragweed (uncoded) Unknown Allergy Ac tive REASON FOR VISIT Patient presents today for an excess iron,fam hx colon ca Medications Medication SIG (Take, Route, Fr equency, Duration) Notes Start Date End Date Status Lisinopril 40 MG 1 tablet Orally Once a day Active NIFEdipine ER 30 MG 1 tablet Orally Once a day Active Atenolol 100 MG 1 tablet Orally Once a day Active Allopurinol 150 mg 1 tablet Orally Once a day Not-Taking Problems Problem Type SNOMED Code ICD Code Onset Dates Problem Status W/U Status Risk Notes Problem Hepatic fibrosis (disorder) (40008001) Liver fibrosis (K74.00) Active confirmed Problem Fatty liver (325341702) Fatty liver (K76.0) Active confirmed Problem Elevated liver enzymes level (765141216) Elevated liver function tests (R94.5) Active confirmed Vital Signs Temperature 98.6 degrees Fahrenheit 02/19/20 24 Blood pressure systolic 000 mm Hg 02/19/20 24 Blood pressure diastolic 00 mm Hg 024 Height 68.5 in 02/19/2024 Weight 192 lbs 02/19/2024 BMI 28.77 kg/m2 02/19/2024 Encounters Encounter Location Date Provider Diagnosis [facility] [address] [place] [address] 02/19/2024 Pedro Hedrick Liver fibrosis K74.00 ; Iron excess E83.19 ; Fatty liver K76.0 and Elevated liver function tests R94.5 Assessments Encounter Date Diagnosis (ICD Code) Assessment Notes Treatment Notes Treatment Clinical Notes Section Notes 02/19/2024 Liver fibrosis (ICD-10 - K74.00) Overall, Kurt appears to be doing well. I did [...] remain stable I will plan to see Kurt in one year for a followup visit. I did advise him to contact me prior to that if he has any problems or questions I can be of assistance with. Kurt was comfortable with this plan. Thank you again for allowing me to participate in Kurt's care. I shall continue to keep you advised of his progress. 02/19/2024 Iron excess (ICD-10 - E83.19) We will have you start doing the phlebotomy every 2 months beginning the end of March,. Overall, Kurt appears to be doing well. I did [...] remain stable I will plan to see Kurt in one year for a followup visit. I did advise him to contact me prior to that if he has any problems or questions I can be of assistance with. Kurt was comfortable with this plan. Thank you again for allowing me to participate in Kurt's care. I shall continue to keep you advised of his progress. 02/19/2024 Fatty liver (ICD-10 - K76.0) Watch diet, lose wieight, and minimize alcohol intake regarding the fatty liver Overall, Kurt appears to be doing well. I did [...] remain stable I will plan to see Kurt in one year for a followup visit. I did advise him to contact me prior to that if he has any problems or questions I can be of assistance with. Kurt was comfortable with this plan. Thank you again for allowing me to participate in Kurt's care. I shall continue to keep you advised of his progress. 02/19/2024 Elevated liver function tests (ICD-10 - R94.5) Overall, Kurt appears to be doing well. I did [...] remain stable I will plan to see Kurt in one year for a followup visit. I did advise him to contact me prior to that if he has any problems or questions I can be of assistance with. Kurt was comfortable with this plan. Thank you again for allowing me to participate in Kurt's care. I shall continue to keep you advised of his progress. Plan Of Treatment Treatment Notes Assessment Notes Iron excess We [...] Provider Name:Pedro Hedrick , 02/18/2025 09:00:00 AM, [address] [place] [address], [address], [place], [address], Progress Notes * BEST JOHNSONZAKIOB:1955 ([age] yo M)Acc No.[id number]:02/19/2024 Progress Notes Patient:?KURT JOHNSON Provider:?Pedro Hedrick MD :1955???Age:68 Y???Sex:Male Horace e:02/19/2024 Address:[address] [place] [address] VICTORINA etienne-[id number] Pcp:Wood Lamar MD Subjective: * Chief Complaints: * ???Patient presents today fo r an excess iron,fam hx colon ca * HPI: ???incontinence:? I saw Kurt in followup today in regard to his underlying history of excess iron. ?Since I last saw Kurt in May of 2023 he has been well. He enjoys a good appetite without any significant heartburn or dysphagia. His bowel movements have been regular and without any signs of bleeding. He denies any abdominal pain, jaundice, nor unintentional weight loss. He denies any pruritus, increasing abdominal girth, nor edema. ?He has been having a phlebotomy every one month with continued improvement in his iron levels. His most recent phlebotomy was at the very end of January. His laboratories from the end of November revealed a normal liver profile except for minimally elevated enzymes with an AST of 49, ALT of 48, and alkaline phosphatase of 140. His iron studies at the end of November showed an iron of 205, iron saturation of 4%, and ferritin down to 162. His highest Ferritin was in December of 2022 when it was just under 2600. Labs in January revealed a liver profile with an AST of 71 and ALT of 68. His CBC with platelet count was normal at that time as well. * ROS:?General/Constitutional:?Change in appetite?denies, denies.?Chills?denies, denies.?Fatigue?denies, denies.?Ophthalmologic:?Patient denies? Negative., Negative..?ENT:?Patient denies?Negative., Negative..?Respiratory:?Patient denies?No coughing/hemoptysis., No coughing/hemoptysis..?Cardiovascular:?Patient denies? No chest pain/orthopnea., No chest pain/orthopnea..?Gastrointestinal:?Comments?See HPI for details, See HPI for details.?Genitourinary:?Patient denies? No dysuria/hematuria., No dysuria/hematuria..?Incontinence?denies, denies.?Musculoskeletal:?Patient denies? No specific arthralgias/myalgias., No specific arthralgias/myalgias..?Skin:?Patient denies?No rash/pruritus., No rash/pruritus..?Neurologic:?Patient denies? No headaches/seizures., No headaches/seizures..?Psychiatric:?Patient denies?Negative., Negative..? * Medical History:? * Surgical History:?Vasectomy Detached retina * Hospitalization/Major Diagno stic Procedure:?No Hospitalization History. * Family History:?Father: dece ased, diagnosed with HTN (hypertension).?Mother: at age 59, diagnosed with Colon cancer.? No liver disease. * Social History:?Tobacco Use:?Tobacco Use/Smoking?Are you a: nonsmoker.?Drugs/Alcohol:?Alcohol Screen?Points: 3, Interpretation: Negative.?Miscellaneous:?Marital status: . 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 ???Nonsmoker; occasional alcohol-1 glass of red wine per day. * Medications:?TakingLisinopri l 40 MG Tablet 1 tablet Orally Once a dayAtenolol 100 MG Tablet 1 tablet Orally Once a dayNIFEdipine ER 30 MG Tablet Extended Release 24 Hour 1 tablet Orally Once a dayTaking Lisinopril 40 MG Tablet 1 tablet Orally Once a dayTaking Atenolol 100 MG Tablet 1 tablet Orally Once a dayTaking NIFEdipine ER 30 MG Tablet Extended Release 24 Hour 1 tablet Orally Once a dayNot- Taking/PRNAllopurinol 150 mg Tablet 1 tablet Orally Once a dayMedication List reviewed and reconciled with the patientNot-Taking/PRN Allopurinol 150 mg Tablet 1 tablet Orally Once a dayMedication List reviewed and reconciled with the patient * Allergies:?ragweedyes[Allerg ies Verified] Objective: * Vitals:?Wt: 192 lbs, Ht: 68. 5 in, BMI:28.77 Index, BP: 000/00 mm Hg, Temp: 98.6. * Examination: ???General Examination: ?GENERAL APPEARANCE:?pleasant, well nourished, well developed, in no acute distress , pleasant, well nourished, well developed, in no acute distress.?EYES:?sclera non-icteric , sclera non-icteric.?ORAL CAVITY:?mucosa moist , mucosa moist.?NECK/THYROID:?no cervical lymphadenopathy, neck supple , no cervical lymphadenopathy, neck supple.?SKIN:?nonjaundiced, no spider angiomata. , nonjaundiced, no spider angiomata..?HEART:?S1, S2 normal , S1, S2 normal.?LUNGS:?clear to auscultation bilaterally , clear to auscultation bilaterally.?ABDOMEN:?normal bowel sounds, no guarding or rigidity, no hepatosplenomegaly, no masses palpable, soft, nontender, nondistended. .?EXTREMITIES:?no edema , no edema.?NEUROLOGIC:?alert and oriented , alert and oriented.? Assessment: * Assessment: 1.?Iron excess - E83.19 (Nan andrae)?2.?Liver fibrosis - K74.00?3.?Fatty liver - K76.0?4.?Elevated liver function tests - R94.5? Overall, Kurt appears to be d oing well. I did review his marked improvement [...] him for a followup abdominal ultrasound and alpha-fetoprotein level. Given his underlying chronic liver disease [...] remain stable I will plan to see Kurt in one year for a followup visit. I did advise him to contact me prior to that if he has any problems or questions I can be of assistance with. Kurt was comfortable with this plan. Thank you again for allowing me to participate in Kurt's care. I shall continue to keep you advised of his progress. Plan: * Treatment: 2.?Liver fibrosis?LAB: LIVER PROFILE ?LAB: ALPHA-FETOPROTEIN,TUMOR MARKER ?Imaging: US abdomen comp w elastography * 3.?Fatty liver?LAB: LIVER PROFILE ?LAB: ALPHA-FETOPROTEIN,TUMOR MARKER ?Imaging: US abdomen comp w elastography* sched for 03/03/24 at 9:30 am [facility] Ultrasound dept 2nd floor fasting 8 hrs prior * Notes: Watch diet, lose wieight, and minimize alcohol intake regarding the fatty liver??4.?Elevated liver function tests?LAB: LIVER PROFILE ?LAB: ALPHA-FETOPROTEIN,TUMOR MARKER ?Imaging: US abdomen comp w elastography* sched for 03/03/24 at 9:30 am [facility] Ultrasound dept 2nd floor fasting 8 hrs prior * * Procedure Codes:?3017F COLOR ECTAL CA SCREEN DOC [id number] TOBACCO [id number]-AQQIS6782 BP SCR NOT PRFRM REC REASON NOS * Preventive Medicine:? ??Counseling:?Care goal follow-up plan:?Above Normal BMI Follow-up?Giving encouragement to exercise,?BMI management provided?Yes.? * Follow Up:?1 Year * * Sign off status: Completed true * Provider:?Pedro Hedrick MD Date:? 024 Generated for New villa/Santiago/eTransmitting on:?12/25/2024 09:39 AM EST History and Physical Notes * HPI (History of Present Illness) Category Sub-Category Detail Notes Category Not es incontinence I saw Kurt in followup today in regard to his underlying history of excess iron. Since I last saw Kurt in May of 2023 he has been well. He enjoys a good appetite without any significant heartburn or dysphagia. His bowel movements have been regular and without any signs of bleeding. He denies any abdominal pain, jaundice, nor unintentional weight loss. He denies any pruritus, increasing abdominal girth, nor edema. He has been having a phlebotomy every one month with continued improvement in his iron levels. His most recent phlebotomy was at the very end of January. His laboratories from the end of November revealed a normal liver profile except for minimally elevated enzymes with an AST of 49, ALT of 48, and alkaline phosphatase of 140. His iron studies at the end of November showed an iron of 205, iron saturation of 4%, and ferritin down to 162. His highest Ferritin was in December of 2022 when it was just under 2600. Labs in January revealed a liver profile with an AST of 71 and ALT of 68. His CBC with platelet count was normal at that time as well. Examination Category Sub-Category Detail Notes Category Not es General Examination GENERAL APPEARANCE: pleasant , well [...]
[2024-12-25 10:04] LABS: Alanine Aminotransferase 37 U/L (0-40); Albumin Level 4.5 g/dL (3.5-5.0); Alkaline Phosphatase 97 U/L (39-117); Anion Gap 15 (12-20); Aspartate Amino Transferase 50 U/L (5-37); Bilirubin Total 1.7 mg/dL (0.0-1.0); Blood Urea Nitrogen 12 mg/dL (9-16); Calcium 9.5 mg/dL (8.4-10.2); Carbon Dioxide 26 mmol/L (22-29); Chloride 104 mmol/L (96-108); Cholesterol 117 mg/dL (<200); Estimated Glomerular Filt Rate 59; Glucose Fasting 121 mg/dL (60-99); HDL Cholesterol 35 mg/dL (>40); LDL Cholesterol Calculated 40 mg/dL (<100); Potassium 3.9 mmol/L (3.3-5.1); Sodium 141 mmol/L (135-145); Total Protein 8.1 g/dL (6.5-8.0); Triglycerides 214 mg/dL (<150)
== END 2024-12-25 08:57 | disposition home or self-care (01) ==
LOC: HO.LAB 08:56
PROVIDERS: PCP Internal Medicine; Visit Provider Internal Medicine
DX: Z13.0 Encounter for screening for diseases of the blood and blood-forming organs and certain disorders involving the immune mechanism (principal); Z13.220 Encounter for screening for lipoid disorders; Z13.6 Encounter for screening for cardiovascular disorders
CPT/HCPCS: 36415; 80053; 80061; 85025

== ENCOUNTER 2024-12-29 11:21 | Outpatient (AMB) | payer MEDICARE, SELFPAY ==
--- NOTE | 2024-12-29 11:23 | A.OFFPC_ITS ---
Vital Signs 12/29/24 11:25 Height 5 ft 9 in Weight 192 lb BMI 28.4 BP 100/74 Blood Pressure Location Lt brachial Position Sitting Pulse 84 Pulse Source Pulse Oximeter Temp 97.3 F Temp Source Temporal Artery Scan Pulse Oximetry (%) 98 Oxygen Delivery Method Room Air Intake Visit Reasons: 3 Month F/U Intake Note: Patient is here to follow up on HTN. 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 Tibco Developer: Not Required per policy Accompanied by: Self / Same As Patient Allergies Seasonal Allergies Allergy (Mild, Verified 12/29/24 11:24) Sneezing Medication List - Last Reconciled 12/29/24 by Wood Lamar MD aspirin 81 mg PO DAILY atenolol 100 mg PO DAILY atorvastatin 40 mg PO QPM coQ10 (ubiquinol) (Qunol Marc CoQ10) 200 mg PO DAILY losartan 100 mg PO DAILY nifedipine ER 60 mg PO DAILY Tobacco use date assessed: 12/29/24 Fall risk assessment: No Falls in past year Last assessed Fall Risk: 12/29/24 Dental Screening Dental Screen Date: 12/29/24 Did you have a dental visit in the last 12 months?: Yes Did you have a dental problem in the last 6 months where you did not have access to dental care?: No Was dental information given to patient?: Patient has dentist HPI 3 Month F/U HPI Details HTN and hyperlipidemia on rx; doing well; compliant [facility] Medical History Asthma Hypertension Surgical History History of laser refractive surgery History of cholecystectomy History of vasectomy Family History Father Gout Diabetes Hypertension Past heart attack Mother Diabetes Colon cancer Sister No problems noted. Sister No problems noted. Son No problems noted. Son No problems noted. Social History Housing: House Alcohol intake: current Alcohol intake frequency: 0-2 drinks per day Alcohol type: wine Patient Tobacco Use Status: Never used Tobacco Tobacco use type: Cigarette e-Cigarette/Vaping Use: Never Used Second Hand Smoke Exposure: No service: No Current occupational status: retired Cognitive needs: No Hearing needs: No Vision needs: Yes (glasses ) Questionnaire PHQ-9 Over the last 2 weeks, how often have you been bothered by any of the following problems? 1. Little interest or pleasure in doing things: not at all 2. Feeling down, depressed, or hopeless: not at all 3. Trouble falling or staying asleep, or sleeping too much: not at all 4. Feeling tired or having little energy: not at all 5. Poor appetite or overeating: not at all 6. Feeling bad about yourself - or that you are a failure or have let yourself or your family down: not at all 7. Trouble concentrating on things, such as reading the newspaper or watching television: not at all 8. Moving or speaking so slowly that other people could have noticed. Or the opposite - being so fidgety or restless that you have been moving around a lot more than usual: not at all 9. Thoughts that you would be better off or of hurting yourself in some way: not at all Total score: 0 Depression Screening Interpretation: Negative Depression Screening Done: Yes Source: Developed by Drs. Pedro Ibarra, Janice Moya, Randall Romo and colleagues, with an educational cintia from [employer]. Thrive Questionnaire Date Thrive assessed: 12/29/24 I am a: Patient What is your living situation today?: I have a steady place to live Within the past 12 months, did the food you bought not last and you didn't have the money to get more?: Never true Within the past 12 months, did you worry whether your food would run out before you got money to buy more?: Never true Do you have trouble paying for medicines?: No Do you have trouble getting transportation to medical appointments?: No Do you have trouble paying your heating and electricity bill?: No Do you have trouble taking care of your child, family member or friend?: No Do you have trouble with day-to-day activities such as bathing, preparing meals, shopping, managing finances, etc.?: No Are you currently unemployed and looking for a job?: No Are you interested in more education?: No Please select the resources that you would like help with: None Currently or been in a relationship where the following occur: No concerns reported THRIVE Score: 0 AUDIT C Alcohol Use Questionnaire (AUDIT-C) 1. How often do you have a drink containing alcohol?: Monthly or less 2. How many drinks containing alcohol do you have on a typical day when you are drinking?: 1 or 2 3. How often do you have six or more drinks on one occasion?: Never Total Score: 1 LEYDI-7 AMB Questionnaire LEYDI-7 Date LEYDI - 7 assessed: 12/29/24 Feeling nervous, anxious, or on edge: 0 = Not at all Not being able to stop or control worryin = Not at all Worrying too much about different things: 0 = Not at all Trouble relaxin = Not at all Being so restless that it is hard to sit still: 0 = Not at all Becoming easily annoyed or irritable: 0 = Not at all Feeling afraid as if something awful might happen: 0 = Not at all Total LEYDI-7 score (0-4 normal; 5-9 mild; 10-14 moderate; 15-21 severe): 0 Source: Developed by Drs. Pedro Ibarra, Janice Moya, Randall Romo and colleagues, with an educational cintia from [employer]. Review of Systems Const Denies chills, Denies headache(s) and Denies weight loss ENT Denies headache(s) Card Denies chest pain, Denies syncope, Denies irregular heart rhythm and Denies dyspnea Resp Denies chest congestion, Denies cough and Denies dyspnea GI Denies abdominal pain, Denies change in stool character, Denies nausea and Denies vomiting Musc Denies deformity and Denies joint swelling Neuro Denies syncope and Denies headache(s) Physical exam (Primary Care) Vital Signs: Last Vital Signs Temp 97.3 F 12/29/24 11:25 Pulse 84 12/29/24 11:25 BP 100/74 12/29/24 11:25 Pulse Ox 98 12/29/24 11:25 Oxygen Delivery Method Room Air 12/29/24 11:25 BMI result Body Mass Index 28.4 Tobacco/Smoking Status: Tobacco use Status Tobacco use date assessed 12/29/24 12/29/24 11:29 Patient Tobacco Use Status Never used Tobacco 12/29/24 11:29 Tobacco use type Cigarette 12/29/24 11:29 e-Cigarette/Vaping Use Never Used 12/29/24 11:29 PHQ-9: PHQ-9 Score PHQ-9: Total score 0 12/29/24 11:29 Depression Screening Interpretation: Negative Thrive Assessment: Date of Thrive Assessment Date Thrive assessed 12/29/24 12/29/24 11:29 Currently or been in a relationship where the following occur: No concerns reported Const General: cooperative, comfortable, no acute distress and alert Neck Neck: Yes no lymphadenopathy Thyroid: Thyroid normal Resp Effort & Inspection: normal respiratory effort Auscultation: clear to auscultation bilaterally Percussion: percussion normal Cardio Jugular venous distension: no JVD Palpation: normal PMI Rate: regular rate Rhythm: regular rhythm Heart sounds: S1 normal heart sound present and S2 normal heart sound present GI Inspection: Yes normal to inspection Palpation (GI): No hepatosplenomegaly present Skin General skin exam: no rashes or lesions noted Extrem General: Yes no clubbing, cyanosis or edema Coding Level of Care Code Est Pt Level 3 (57068) Diagnoses Primary hypertension I10 Hypertension type: primary hypertension Assessment & Plan Assessment & Plan (1) Hypertension: Code(s): I10 - Essential (primary) hypertension Category: Medical Qualifiers: Hypertension type: primary hypertension Qualified Code(s): I10 - Essential (primary) hypertension Plan: stable; same rx Medications: New nirmatrelvir-ritonavir 300 mg (150 mg x 2)-100 mg (Paxlovid) take TWO 150 mg tablets of nirmatrelvir with ONE 100 mg tablet of ritonavir twice daily for 5 days orally; 30 tabs 0RF
[2024-12-29 11:25] VITALS: BP 100/74; PULSE 84; TEMP 36.3; O2SAT 98; BMI 28.4
--- OUTSIDE RECORDS SUMMARY | 2024-12-29 14:02 | XMS_ITS ---
Author Organization [facility] Address [address] [place] [address] Care Team Providers Care Pastrycook'S Assistant Name Role Phone Wood Lamar MD Primary Care Provider Pedro Thompson Unavailable [phone] Allergies Allergen (clinical drug ingredient) Drug/Non Drug [...] Status Risk Notes Problem Hepatic fibrosis (disorder) (49228953) Liver fibrosis (K74.00) Active confirmed Problem Fatty liver (139306599) Fatty liver (K76.0) Active confirmed Problem Elevated liver enzymes level (434064494) Elevated liver function tests (R94.5) Active confirmed Vital Signs Temperature 98.6 degrees Fahrenheit 02/19/20 24 Blood pressure systolic 000 mm Hg 02/19/20 24 Blood pressure diastolic 00 mm Hg 024 Height 68.5 in 02/19/2024 Weight 192 lbs 02/19/2024 BMI 28.77 kg/m2 02/19/2024 Encounters Encounter Location Date Provider Diagnosis [facility] [address] [place] [address] 02/19/2024 Pedro Hedrick Liver fibrosis K74.00 ; [...] Provider Name:Pedro Hedrick , 02/18/2025 09:00:00 AM, [address] [place] [address], [address], [place], [address], Progress Notes * BEST JOHNSONZAKIOB:1955 ([age] yo M)Acc No.[id number]:02/19/2024 Progress Notes Patient:?KURT JOHNSON Provider:?Pedro Hedrick MD :1955???Age:68 Y???Sex:Male Horace e:02/19/2024 Address:[address] [place] [address] VICTORINA etienne-[phone] Pcp:Wood Lamar MD Subjective: * Chief Complaints: [...] Screen?Points: 3, Interpretation: Negative.?Miscellaneous:?Marital status: . 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* sched for 03/03/24 at 9:30 am [facility] 2nd [place] fasting 8 hrs prior * Notes: Watch diet, lose wieight, and minimize alcohol intake regarding the fatty liver??4.?Elevated liver function tests?LAB: LIVER PROFILE ?LAB: ALPHA-FETOPROTEIN,TUMOR MARKER ?Imaging: US abdomen comp w elastography* sched for 03/03/24 at 9:30 am [facility] 2nd floor fasting 8 hrs prior * * Procedure Codes:?3017F COLOR ECTAL CA SCREEN DOC [id number] TOBACCO NON-CHVZE1571 BP SCR NOT PRFRM REC REASON NOS * Preventive Medicine:? ??Counseling:?Care goal follow-up plan:?Above Normal BMI Follow-up?Giving encouragement to exercise,?BMI management provided?Yes.? * Follow Up:?1 Year * * Sign off status: Completed true * Provider:?Pedro Hedrick MD Date:? 024 Generated for New villa/[place]/eTransmitting on:?12/29/2024 02:02 PM EDT History and Physical Notes * HPI (History [...]
--- OUTSIDE RECORDS SUMMARY | 2024-12-29 14:02 | XMS_ITS | Patient Health Record ---
Author Organization [facility] Address [address] [place] [address] Care Team Providers Care Price Analyst Name Role Phone Brianda JACOBS, Wood Primary Care Provider Pedro Thompson Unavailable [phone] Allergies Allergen (clinical drug ingredient) Drug/Non Drug Allergy documented on EMR Reaction Allergy Type Onset Date Status ragweed (uncoded) Unknown Allergy Ac tive Results Component Value Reference Range Notes Therapeutic Phlebotomy Reviewed date:01/16/2024 06:27:33 PM Interpretation: Performing Lab:[facility], [address] [place] [phone] Notes/Report: THER/HGB 16.5 14.0-18.0 g/dL THER/HCT TNP 42.0-52.0 % Therapeutic Phlebotomy Phlebotomy Performed 500 mls drawn on 01/16/24. Please note that a copy of this report has been sent to the Primary Care Physician, the ordering physician and any physician designated by patient request. Therapeutic Phlebotomy Reviewed date:02/17/2024 04:38:43 PM Interpretation: Performing Lab:[facility], [address] [place] [phone] Notes/Report: THER/HGB 15.1 14.0-18.0 g/dL THER/HCT TNP 42.0-52.0 % Therapeutic Phlebotomy Phlebotomy Performed 500 mls drawn on 02/17/24. Please note that a copy of this report has been sent to the Primary Care Physician, the ordering physician and any physician designated by patient request. US abdomen comp w elastograp hy (Not yet reviewed by provider) Interpretation: Performing Lab: Notes/Report: [address] [address] Ultrasound Report Signed Patient: Christel Thacker MR#: [id number] : 1955 Acct:[id number] Age/Sex: 68 / M ADM Date: 03/03/24 Loc: HO.US Attending Dr: Pedro Hedrick MD Ordering Physician: Pedro Hedrick Date of Service: 03/03/24 Procedure(s): US abdomen comp w elastography Accession Number(s): [id number] cc: Wood Lamar MD; Pedro Hedrick EXAMINATION: [...] in OV> 03/13/24 1824 DD/ 0943 TD/TT: [employer] Director: [address] [address] Ultrasound Report Signed Patient: Christel Thacker MR#: [id number] : 1955 Acct:[id number] Age/Sex: 68 / M ADM Date: 03/03/24 Loc: HO.US Attending Dr: Pedro Hedrick MD Ordering Physician: Pedro Hedrick Date of Service: 03/03/24 Procedure(s): US abd omen comp w elastography Accession Number(s): [id number] cc: Wood Lamar MD; Pedro Hedrick EXAMINATION: [...] in OV> 03/13/24 1824 DD/ 0943 TD/TT: Eating Disorder Psychologist ist: JEMAL Therapeutic Phlebotomy Reviewed date:08/10/2024 11:03:57 PM Interpretation: Performing Lab:[facility], [address] [place] [phone] Notes/Report: THER/HGB 14.5 14.0-18.0 g/dL THER/HCT TNP 42.0-52.0 % Therapeutic Phlebotomy Phlebotomy Performed 500 mls drawn on 04/14/24. Please note that a copy of this report has been sent to the Primary Care Physician, the ordering physician and any physician designated by patient request. Liver Panel Reviewed date:08/10/2024 11:03:24 PM Interpretation: Performing Lab:[address] [phone] Notes/Report: Bilirubin Total 0.8 0.0-1.0 mg/dL Bilirubin Direct 0.3 0.0-0.5 mg/dL Aspartate Amino Transferase 74 5-37 U/L Alanine Aminotransferase 53 0-40 U/L Total Protein 7.2 6.5-8.0 g/dL Albumin Level 4.3 3.5-5.0 g/dL Alkaline Phosphatase 143 39-117 U/L IRON PROFILE Reviewed date:06/15/2024 11:28:56 PM Interpretation: Performing Lab:[facility], [address] [place] [phone] Notes/Report: Iron 108 45-160 mcg/dL Total Iron Binding Capacity 349 228-428 mcg/dL Percent Iron Saturation 31 15-50 % Unsaturated Iron Binding 241 Ferritin Reviewed date:07/05/2024 05:22:35 PM Interpretation: Performing Lab:[facility], [address] [place] [phone] Notes/Report: Ferritin 276 20-250 ng/mL Therapeutic Phlebotomy Reviewed date:06/16/2024 12:41:45 PM Interpretation: Performing Lab:[facility], [address] [place] [phone] Notes/Report: THER/HGB 13.9 14.0-18.0 g/dL THER/HCT TNP 42.0-52.0 % Therapeutic Phlebotomy Phlebotomy Performed 500 mls drawn on 06/15/24. Please note that a copy of this report has been sent to the Primary Care Physician, the ordering physician and any physician designated by patient request. Therapeutic Phlebotomy Reviewed date:08/10/2024 11:03:35 PM Interpretation: Performing Lab:[address] [phone] Notes/Report: THER/HGB 13.3 14.0-18.0 g/dL THER/HCT TNP 42.0-52.0 % Therapeutic Phlebotomy Phlebotomy Performed 500 mls drawn on 08/10/24. Please note that a copy of this report has been sent to the Primary Care Physician, the ordering physician and any physician designated by patient request. Liver Panel Reviewed date:10/16/2024 09:16:54 PM Interpretation: Performing Lab:[facility], [address] [place] [phone] Notes/Report: Bilirubin Total 0.7 0.0-1.0 mg/dL Bilirubin Direct 0.2 0.0-0.5 mg/dL Aspartate Amino Transferase 60 5-37 U/L Alanine Aminotransferase 45 0-40 U/L Total Protein 7.1 6.5-8.0 g/dL Albumin Level 4.5 3.5-5.0 g/dL Alkaline Phosphatase 108 39-117 U/L IRON PROFILE Reviewed date:10/16/2024 09:17:05 PM Interpretation: Performing Lab:[facility], [address] [place] [phone] Notes/Report: Iron 87 45-160 mcg/dL Total Iron Binding Capacity 360 228-428 mcg/dL Percent Iron Saturation 24 15-50 % Unsaturated Iron Binding 273 Ferritin Reviewed date:10/16/2024 09:15:19 PM Interpretation: Performing Lab:[address] [phone] Notes/Report: Ferritin 193 20-250 ng/mL Therapeutic Phlebotomy Reviewed date:10/16/2024 09:17:18 PM Interpretation: Performing Lab:[address] [phone] Notes/Report: THER/HGB 13.5 14.0-18.0 g/dL THER/HCT TNP 42.0-52.0 % Therapeutic Phlebotomy Phlebotomy Performed 500 mls drawn on 10/15/24. Please note that a copy of this report has been sent to the Primary Care Physician, the ordering physician and any physician designated by patient request. Liver Panel Reviewed date:12/17/2024 07:00:46 PM Interpretation: Performing Lab:[facility], [address] [place] [phone] Notes/Report: Bilirubin Total 0.9 0.0-1.0 mg/dL Bilirubin Direct 0.3 0.0-0.5 mg/dL Aspartate Amino Transferase 40 5-37 U/L Alanine Aminotransferase 37 0-40 U/L Total Protein 7.2 6.5-8.0 g/dL Albumin Level 4.3 3.5-5.0 g/dL Alkaline Phosphatase 105 39-117 U/L IRON PROFILE Reviewed date:12/17/2024 07:00:59 PM Interpretation: Performing Lab:[address] [phone] Notes/Report: Iron 126 45-160 mcg/dL Total Iron Binding Capacity 335 228-428 mcg/dL Percent Iron Saturation 38 15-50 % Unsaturated Iron Binding 209 Ferritin Reviewed date:12/17/2024 07:01:17 PM Interpretation: Performing Lab:[address] [phone] Notes/Report: Ferritin 126 20-250 ng/mL Therapeutic Phlebotomy Reviewed date:12/17/2024 12:36:38 PM Interpretation: Performing Lab:[address] [address] Notes/Report: THER/HGB 13.0 14.0-18.0 g/dL THER/HCT TNP [...] Problem Status W/U Status Risk Notes Problem 903929021 Colon cancer screening (Z12.11) Active confirmed Problem 884497107 History of adenomatous polyp of colon (Z86.010) Active confirmed Problem Diverticular disease of colon (450362209) Diverticulosis of large intestine without perforation or abscess without bleeding (K57.30) Active confirmed Problem 914643119 Elevated liver function tests (R79.89) Active confirmed Problem 423285265601467 Preprocedural examination (Z01.818) Active confirmed Problem Fatty liver (623601959) Fatty liver (K76.0) Active confirmed Problem 878896482 Family history o f colon cancer (Z80.0) Active confirmed Problem 92790569 Iron excess (E83.19) Active confirmed Problem Elevated liver enzymes level (818892807) Elevated liver function tests (R94.5) Active confirmed Problem Hepatic fibrosis (disorder) (65677778) Liver fibrosis (K74.00) Active confirmed Vital Signs Temperature 98.6 degrees Fahrenheit 02/19/2024 Blood pressure diastolic 00 mm Hg 02/19/2024 Height 68.5 in 02/19/2024 Blood pressure systolic 000 mm Hg 02/19/2024 Weight 192 lbs 02/19/2024 BMI 28.77 kg/m2 02/19/2024 Encounters Encounter Location Date Provider Diagnosis [facility] [address] [place] [phone] 02/19/2024 Pedro Hedrick Liver fibrosis K74.00 ; Iron excess E83.19 ; Fatty liver K76.0 and Elevated liver function tests R94.5 [facility] [address] [place] [phone] 02/24/2024 Pedro Hedrick Assessments Encounter Date Diagnosis [...] LIVER PROFILE 10/31/2022 IRON + IBC (FE) 12/02/2022 IRON + IBC (FE) 10/31/2022 CBC w DIFF 10/31/2022 CBC w DIFF 12/02/2022 HEPATITIS B, C PROFILE 10/31/2022 ALPHA-FETOPROTEIN,TUMOR MARKER US LIVER BIOPSY CORE GUIDE 12/02/2022 FLUOR. ANTINUCLEAR AB SCREEN (OLEG) 10/21 US ABDOMEN COMP WITH ELASTOGRAPHY 2022 Prothrombin Time INR 10/31/2022 Prothrombin Time INR 12/02/2022 Partial Thromboplastin Time 12/02/2022 Ferritin 12/02/2022 Ferritin [...] Name:Pedro Camarillo Ryley , 02/18/2025 09:00:00 AM, [address] [place] [address], [address], [place], [address], Insurance Providers Payer Name Payer Address Payer Phone Subscriber Number Group Number Insured Name Patient Relationship to Insured Coverage Start Date Coverage End Date [facility] [address] [place], [place] [phone] [id number] CHRISTEL THACKER Self - patient is the insured Medical (General) History Medical History History ICD Code Hypertension Denies VA,DM,CVA,Lung disease,renal dise ase Gout Neg. screening colonoscopy [...]
--- OUTSIDE RECORDS SUMMARY | 2024-12-29 14:03 | XMS_ITS ---
Author Organization [facility] Address [address] [place] [address] Care Team Providers Care Special Needs Nanny Name Role Phone Wood Lamar MD Primary Care Provider Pedro Thompson [phone] Encounters Encounter Location Date Provider Diagnosis [facility] [address] [place] [address] 02/24/2024 Pedro Hedrick Plan Of Treatment Next Appt Details Provider Name:Pedro Hedrick , 02/18/2025 09:00:00 AM, [address], [address], [place], [address], Progress Notes * DELON JOHNSONOB:1955 ([age] yo M)Acc No.[id number]:02/24/2024 Patient:?ELIZABETHBESTO :1955???Age:68 Y???Sex:Male Address:[address] [place] [address] [facility] [place], [address] * true * Date:? Generated for Printi allen/Santiago/eTransmitting on:?12/29/2024 02:02 PM EDT
== END 2024-12-29 11:58 | disposition home or self-care (01) ==
LOC: HO.HMCH 11:22
PROVIDERS: PCP Internal Medicine; Visit Provider Internal Medicine
DX: I10 Essential (primary) hypertension (principal)

== ENCOUNTER → 2024-12-29 11:21 | Outpatient (BNVA) | payer MEDICARE, SELFPAY | PROVIDERS: PCP Internal Medicine; Visit Provider Internal Medicine | DX: I10 Essential (primary) hypertension (principal) | CPT/HCPCS: 99212 ==

== ENCOUNTER 2025-02-18 11:15 | Outpatient (REF) | payer MEDICARE, SELFPAY | END 2025-02-18 11:16 | disposition home or self-care (01) | LOC: HO.BBR 11:15 | PROVIDERS: Visit Provider Internal Medicine | DX: E83.119 Hemochromatosis, unspecified (principal) | CPT/HCPCS: 85014; 85018; 99195 ==

== ENCOUNTER 2025-02-22 10:50 | Outpatient (REF) | payer MEDICARE, SELFPAY ==
[2025-02-22 12:08] LABS: Prothrombin Time 11.3 SEC (10.9-12.4)
--- OUTSIDE RECORDS SUMMARY | 2025-02-22 12:25 | XMS_ITS | Patient Health Record ---
Author Organization [facility] Address [address] [place] [address] Care Team Providers Care Supervisor [employer] Name Role Phone Robinson Napoles N.P. Primary Care Provider Pedro Chaparro Unavailable [phone] Allergies Allergen (clinical drug ingredient) Drug/Non Drug Allergy documented on EMR Reaction Allergy Type Onset Date Status ragweed (uncoded) Unknown Allergy Ac tive Results Component Value Reference Range Notes Prothrombin Time INR (Not ye t reviewed by provider) Interpretation: Performing Lab:[facility], [address] [place] [phone] Notes/Report: Prothrombin Time 11.3 10.9-12.4 SEC INTERNATIONAL NORM RATIO 1.0 0.9-1.1 INTERNATIONAL NORMALIZED RATIO (INR) REFERENCE RANGES Reference Range For patients not on anticoagulant therapy: 0.9 - 1.1 INR ranges for oral anticoagulant therapy: For prevention and treatment of venous thrombosis and pulmonary embolism: 2.0 - 3.0 For acute myocardial infarction with aspirin therapy: 2.0 - 3.0 For acute myocardial infarction without aspirin therapy: 3.0 - 4.0 For patients with mechanical prosthetic heart valves: 2.5 - 3.5 US abdomen comp w elastograp hy (Not yet reviewed by provider) Interpretation: Performing Lab: Notes/Report: [address] [address] Ultrasound Report Signed Patient: Kurt Thacker MR#: [id number] : 1955 Acct:[id number] Age/Sex: 68 / M ADM Date: 03/03/24 Loc: HO.US Attending Dr: Pedro Hedrick MD Ordering Physician: Pedro Hedrick Date of Service: 03/03/24 Procedure(s): US abdomen comp w elastography Accession Number(s): [id number] cc: Wood Lamar MD; Pedro Hedrick EXAMINATION: [...] in OV> 03/13/24 1824 DD/ 0943 TD/TT: Deck Scaler: [place] [address] Ultrasound Report Signed Patient: Kurt Thacker MR#: [id number] : 1955 Acct:[id number] Age/Sex: 68 / M ADM Date: 03/03/24 Loc: HO.US Attending Dr: Pedro Hedrick MD Ordering Physician: Pedro Hedrick Date of Service: 03/03/24 Procedure(s): US abd omen comp w elastography Accession Number(s): [id number] cc: Wood Lamar MD; Pedro Hedrick EXAMINATION: [...] in OV> 03/13/24 1824 DD/ 0943 TD/TT: [employer] Supervisor ist: JEMAL Therapeutic Phlebotomy Reviewed date:08/10/2024 11:03:57 PM Interpretation: Performing Lab:[facility], [address] [place] [phone] Notes/Report: THER/HGB 14.5 14.0-18.0 g/dL THER/HCT TNP 42.0-52.0 % Therapeutic Phlebotomy Phlebotomy Performed 500 mls drawn on 04/14/24. Please note that a copy of this report has been sent to the Primary Care Physician, the ordering physician and any physician designated by patient request. Liver Panel Reviewed date:08/10/2024 11:03:24 PM Interpretation: Performing Lab:[facility], [address] [place] [phone] Notes/Report: Bilirubin Total 0.8 0.0-1.0 mg/dL Bilirubin Direct 0.3 0.0-0.5 mg/dL Aspartate Amino Transferase 74 5-37 U/L Alanine Aminotransferase 53 0-40 U/L Total Protein 7.2 6.5-8.0 g/dL Albumin Level 4.3 3.5-5.0 g/dL Alkaline Phosphatase 143 39-117 U/L IRON PROFILE Reviewed date:06/15/2024 11:28:56 PM Interpretation: Performing Lab:[facility], [address] [place] [phone] Notes/Report: Iron 108 45-160 mcg/dL Total Iron Binding Capacity 349 228-428 mcg/dL Percent Iron Saturation 31 15-50 % Unsaturated Iron Binding 241 Ferritin Reviewed date:07/05/2024 05:22:35 PM Interpretation: Performing Lab:[facility], [address] [place] [phone] Notes/Report: Ferritin 276 20-250 ng/mL Therapeutic Phlebotomy Reviewed date:06/16/2024 12:41:45 PM Interpretation: Performing Lab:[facility], [address] [place] [phone] Notes/Report: THER/HGB 13.9 14.0-18.0 g/dL THER/HCT TNP 42.0-52.0 % Therapeutic Phlebotomy Phlebotomy Performed 500 mls drawn on 06/15/24. Please note that a copy of this report has been sent to the Primary Care Physician, the ordering physician and any physician designated by patient request. Therapeutic Phlebotomy Reviewed date:08/10/2024 11:03:35 PM Interpretation: Performing Lab:[facility], [address] [place] [phone] Notes/Report: THER/HGB 13.3 14.0-18.0 g/dL THER/HCT TNP 42.0-52.0 % Therapeutic Phlebotomy Phlebotomy Performed 500 mls drawn on 08/10/24. Please note that a copy of this report has been sent to the Primary Care Physician, the ordering physician and any physician designated by patient request. Liver Panel Reviewed date:10/16/2024 09:16:54 PM Interpretation: Performing Lab:[facility], [address] [place] [phone] Notes/Report: Bilirubin Total 0.7 0.0-1.0 mg/dL Bilirubin Direct 0.2 0.0-0.5 mg/dL Aspartate Amino Transferase 60 5-37 U/L Alanine Aminotransferase 45 0-40 U/L Total Protein 7.1 6.5-8.0 g/dL Albumin Level 4.5 3.5-5.0 g/dL Alkaline Phosphatase 108 39-117 U/L IRON PROFILE Reviewed date:10/16/2024 09:17:05 PM Interpretation: Performing Lab:[facility], [address] [place] [phone] Notes/Report: Iron 87 45-160 mcg/dL Total Iron Binding Capacity 360 228-428 mcg/dL Percent Iron Saturation 24 15-50 % Unsaturated Iron Binding 273 Ferritin Reviewed date:10/16/2024 09:15:19 PM Interpretation: Performing Lab:[facility], [address] [place] [phone] Notes/Report: Ferritin 193 20-250 ng/mL Therapeutic Phlebotomy Reviewed date:10/16/2024 09:17:18 PM Interpretation: Performing Lab:[facility], [address] [place] [phone] Notes/Report: THER/HGB 13.5 14.0-18.0 g/dL THER/HCT TNP 42.0-52.0 % Therapeutic Phlebotomy Phlebotomy Performed 500 mls drawn on 10/15/24. Please note that a copy of this report has been sent to the Primary Care Physician, the ordering physician and any physician designated by patient request. Liver Panel Reviewed date:12/17/2024 07:00:46 PM Interpretation: Performing Lab:[facility], [address] [place] [phone] Notes/Report: Bilirubin Total 0.9 0.0-1.0 mg/dL Bilirubin Direct 0.3 0.0-0.5 mg/dL Aspartate Amino Transferase 40 5-37 U/L Alanine Aminotransferase 37 0-40 U/L Total Protein 7.2 6.5-8.0 g/dL Albumin Level 4.3 3.5-5.0 g/dL Alkaline Phosphatase 105 39-117 U/L IRON PROFILE Reviewed date:12/17/2024 07:00:59 PM Interpretation: Performing Lab:[facility], [address] [place] [phone] Notes/Report: Iron 126 45-160 mcg/dL Total Iron Binding Capacity 335 228-428 mcg/dL Percent Iron Saturation 38 15-50 % Unsaturated Iron Binding 209 Ferritin Reviewed date:12/17/2024 07:01:17 PM Interpretation: Performing Lab:[facility], [address] [place] [phone] Notes/Report: Ferritin 126 20-250 ng/mL Therapeutic Phlebotomy Reviewed date:12/17/2024 12:36:38 PM Interpretation: Performing Lab:[address] [phone] Notes/Report: THER/HGB 13.0 14.0-18.0 g/dL THER/HCT TNP 42.0-52.0 % Therapeutic Phlebotomy Phlebotomy Performed 500 mls drawn on 12/17/24. Please note that a copy of this report has been sent to the Primary Care Physician, the ordering physician and any physician designated by patient request. Therapeutic Phlebotomy Reviewed date:02/20/2025 10:06:52 PM Interpretation: Performing Lab:[facility], [address] [place] [phone] Notes/Report: THER/HGB 14.9 14.0-18.0 g/dL THER/HCT TNP 42.0-52.0 % Therapeutic Phlebotomy Phlebotomy Performed 500 mls drawn on 02/18/25. Please note that a copy of this report has been sent to the Primary Care Physician, the ordering physician and any physician designated by patient request. Reason For Referral No Information Medications Medication SIG (Take, Route, Frequency, Duration) Notes Start Date End Date Status Aspirin 81 Active Nifedical XL Active Losartan Potassium A ctive Allopurinol 150 mg 1 tablet Orally Once a day Not-Taking Atenolol 100 MG 1 tablet Orally Once a day Active Lisinopril 40 MG 1 tablet Orally Once a day Active Atorvastatin Calcium 40 MG 1 tablet Orally Once a day Active Immunizations Vaccine Route Administration Date Status Comme nts Influenza Unknown 08/08/2022 Administered Influenza Unknown 08/13/2023 Administered Problems Problem Type SNOMED Code ICD Code Onset Dates Problem Status W/U Status Risk Notes Problem 473594409 Colon cancer screening (Z12.11) Active confirmed Problem 908545512 History of adenomatous polyp of colon (Z86.010) Active confirmed Problem Diverticular disease of colon (329146592) Diverticulosis of large intestine without perforation or abscess without bleeding (K57.30) Active confirmed Problem 536588822 Elevated liver function tests (R79.89) Active confirmed Problem 623953326846605 Preprocedural examination (Z01.818) Active confirmed Problem Fatty liver (040640872) Fatty liver (K76.0) Active confirmed Problem 237141748 Family history o f colon cancer (Z80.0) Active confirmed Problem 56473093 Iron excess (E83.19) Active confirmed Problem Elevated liver enzymes level (142820335) Elevated liver function tests (R94.5) Active confirmed Problem Hepatic fibrosis (disorder) (61157177) Liver fibrosis (K74.00) Active confirmed Vital Signs Blood pressure diastolic 77 mm Hg 02/18/2025 Height 68.5 in 02/18/2025 Blood pressure systolic 111 mm Hg 02/18/2025 Weight 190 lbs 02/18/2025 BMI 28.47 kg/m2 02/18/2025 Encounters Encounter Location Date Provider Diagnosis [facility] [address] [place] [phone] 02/18/2025 Pedro Hedrick Colon cancer screening Z12.11 ; Iron excess E83.19 ; Liver fibrosis K74.00 ; Fatty liver K76.0 and Elevated liver function tests R79.89 [facility] [address] [place] [phone] 02/18/2025 Pedro Hedrick [facility] [address] [place] [phone] 02/24/2024 Pedro Hedrick Assessments Encounter Date Diagnosis (ICD Code) Assessment Notes Treatment Notes Treatment Clinical Notes Section Notes 02/18/2025 Colon cancer screening (ICD-10 - Z12.11) Repeat colonoscopy in 2027 Overall, Kurt appears quite well. He does not describe nor show any signs of progressive liver disease. His iron levels are at a good level on the current phlebotomy schedule. He will continue doing that every 2 months but I did advise him that if I see any further drops in hemoglobin then I would most likely spread them out to every 3 or 4 months thereafter. I shall check an abdominal ultrasound, alpha-fetoprote in level, and liver fibrosis score for follow-up of the chronic liver disease. We did review that he will be due for a follow-up colonoscopy in 2027. If things remain stable I will see him in 1 year for a follow-up office visit but did advise him to contact me in the interim if he has any problems or questions I can be of assistance with. Kurt was comfortable with this plan. Thank you again for allowing me to participate in Kurt's care. I shall continue to keep you advised of his progress. 02/18/2025 Iron excess (ICD-10 - E83.19) Overall, Kurt appears quite well. He does not describe nor show any signs of progressive liver disease. His iron levels are at a good level on the current phlebotomy schedule. He will continue doing that every 2 months but I did advise him that if I see any further drops in hemoglobin then I would most likely spread them out to every 3 or 4 months thereafter. I shall check an abdominal ultrasound, alpha-fetoprote in level, and liver fibrosis score for follow-up of the chronic liver disease. We did review that he will be due for a follow-up colonoscopy in 2027. If things remain stable I will see him in 1 year for a follow-up office visit but did advise him to contact me in the interim if he has any problems or questions I can be of assistance with. Kurt was comfortable with this plan. Thank you again for allowing me to participate in Kurt's care. I shall continue to keep you advised of his progress. 02/18/2025 Liver fibrosis (ICD-10 - K74.00) Overall, Kurt appears quite well. He does not describe nor show any signs of progressive liver disease. His iron levels are at a good level on the current phlebotomy schedule. He will continue doing that every 2 months but I did advise him that if I see any further drops in hemoglobin then I would most likely spread them out to every 3 or 4 months thereafter. I shall check an abdominal ultrasound, alpha-fetoprote in level, and liver fibrosis score for follow-up of the chronic liver disease. We did review that he will be due for a follow-up colonoscopy in 2027. If things remain stable I will see him in 1 year for a follow-up office visit but did advise him to contact me in the interim if he has any problems or questions I can be of assistance with. Kurt was comfortable with this plan. Thank you again for allowing me to participate in Kurt's care. I shall continue to keep you advised of his progress. 02/18/2025 Fatty liver (ICD-10 - K76.0) Overall, Kurt appears quite well. He does not describe nor show any signs of progressive liver disease. His iron levels are at a good level on the current phlebotomy schedule. He will continue doing that every 2 months but I did advise him that if I see any further drops in hemoglobin then I would most likely spread them out to every 3 or 4 months thereafter. I shall check an abdominal ultrasound, alpha-fetoprote in level, and liver fibrosis score for follow-up of the chronic liver disease. We did review that he will be due for a follow-up colonoscopy in 2027. If things remain stable I will see him in 1 year for a follow-up office visit but did advise him to contact me in the interim if he has any problems or questions I can be of assistance with. Kurt was comfortable with this plan. Thank you again for allowing me to participate in Kurt's care. I shall continue to keep you advised of his progress. 02/18/2025 Elevated liver function tests (ICD-10 - R79.89) Overall, Kurt appears quite well. He does not describe nor show any signs of progressive liver disease. His iron levels are at a good level on the current phlebotomy schedule. He will continue doing that every 2 months but I did advise him that if I see any further drops in hemoglobin then I would most likely spread them out to every 3 or 4 months thereafter. I shall check an abdominal ultrasound, alpha-fetoprote in level, and liver fibrosis score for follow-up of the chronic liver disease. We did review that he will be due for a follow-up colonoscopy in 2027. If things remain stable I will see him in 1 year for a follow-up office visit but did advise him to contact me in the interim if he has any problems or questions [...] HEPATITIS B, C PROFILE 10/31/2022 ALPHA-FETOPROTEIN,TUMOR MARKER 4 ALPHA-FETOPROTEIN,TUMOR MARKER 5 US LIVER BIOPSY CORE GUIDE 12/02/2022 FLUOR. ANTINUCLEAR AB SCREEN (OLEG) 10/21 US ABDOMEN COMP WITH ELASTOGRAPHY 2022 Prothrombin Time INR 12/02/2022 Prothrombin Time INR 10/31/2022 Prothrombin Time INR 02/18/2025 Partial Thromboplastin Time 12/02/2022 Ferritin 12/02/2022 Ferritin 10/31/2022 Alpha 1 Anti-trypsin 10/31/2022 Liver Fibrosis Pnl 10/31/2022 Liver Fibrosis Pnl 02/18/2025 Iron Liver Tissue 12/02/2022 Mitochondrial Antibody 10/31/2022 Smooth Muscle Antibody 10/31/2022 US abdomen comp w elastography 5 US abdomen comp w elastography 4 US abdomen comp w elastography 4 US biopsy liver 01/14/2023 Future Test Test Name Order Date COLONOSCOPY 01/26/2015 COLONOSCOPY 10/31/2022 Next Appt Details Provider Name:Pedro Hedrick , 02/24/2026 09:00:00 AM, [address] [place] [address], [address], [place], [address], Insurance Providers Payer Name Payer Address Payer Phone Subscriber Number Group Number Insured Name Patient Relationship to Insured Coverage Start Date Coverage End Date [facility] [address] [place] [address] [id number] KURT THACKER Self - patient is the insured Medical (General) History Medical History History ICD Code Hypertension Denies MT,DM,CVA,Lung disease,renal dise ase Gout Neg. screening colonoscopy [...] 2 small tubular adenomas that were removed. Coronary artery disease. He was found to have some partial blockages on a CT of the heart in 2023 and is being treated medically by [facility]. He did not require a cardiac catheterization and has no history of MT. Surgical History Surgery Date(Month/Year) Detached retina Vasectomy
--- OUTSIDE RECORDS SUMMARY | 2025-02-22 12:26 | XMS_ITS ---
Author Organization [facility] Address [address] [place] [address] Care Team Providers Care Clam Dredger Name Role Phone Robinson Napoles N.P. Primary Care Provider Unava Pedro Red Unavailable [phone] REASON FOR VISIT pt needs new order. Encounters Encounter Location Date Provider Diagnosis [facility] [address] [place] [address] 02/18/2025 Pedro Hedrick Plan Of Treatment Next Appt Details Provider Name:Pedro Hedrick , 02/24/2026 09:00:00 AM, [address], [address], [place], [address], Progress Notes * DELON JOHNSONOB:1955 ([age] yo M)Acc No.[id number]:02/18/2025 Patient:?CHRISTEL JOHNSON :1955???Age:69 Y???Sex:Male Address:[address] [place] [address] Gary chinVICTORINA kaur, [address] * * Date:?
--- OUTSIDE RECORDS SUMMARY | 2025-02-22 12:26 | XMS_ITS ---
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 Primary Care Provider Pedro Chaparro Unavailable [phone] Allergies Allergen (clinical drug ingredient) Drug/Non Drug Allergy documented on EMR Reaction Allergy Type Onset Date Status ragweed (uncoded) Unknown Allergy Ac tive Results Component Value Reference Range Notes Prothrombin Time INR (Not ye t reviewed by provider) Interpretation: Performing Lab:[facility], [address] [place] [id number] Notes/Report: Prothrombin Time 11.3 10.9-12.4 SEC INTERNATIONAL [...] mechanical prosthetic heart valves: 2.5 - 3.5 REASON FOR VISIT Patient presents today for excess iron Medications Medication SIG (Take, Route, Frequency, Duration) Notes Start Date End Date Status Nifedical XL Active Losartan Potassium A ctive Atenolol 100 MG 1 tablet Orally Once a day Active Lisinopril 40 MG 1 tablet Orally Once a day Active Atorvastatin Calcium 40 MG 1 tablet Orally Once a day Active Aspirin 81 Active Allopurinol 150 mg 1 tablet Orally Once a day Not-Taking Vital Signs Blood pressure systolic 111 mm Hg 02/19/20 25 Blood pressure diastolic 77 mm Hg 025 Height 68.5 in 02/18/2025 Weight 190 lbs 02/18/2025 BMI 28.47 kg/m2 02/18/2025 Encounters Encounter Location Date Provider Diagnosis [facility] [address] [place] [address] 02/18/2025 Pedro Hedrick Colon cancer screening Z12.11 ; Iron excess E83.19 ; Liver fibrosis K74.00 ; Fatty liver K76.0 and Elevated liver function tests R79.89 Assessments Encounter Date Diagnosis (ICD Code) Assessment [...] again for allowing me to participate in Dianas care. I shall continue to keep you [...] Plan Of Treatment Treatment Notes Assessment Notes Colon cancer screening Repeat colonoscop y in 2027 Pending Test Test Name Order Date ALPHA-FETOPROTEIN,TUMOR MARKER 5 Prothrombin Time INR 02/18/2025 Liver Fibrosis Pnl 02/18/2025 US abdomen comp w elastography 5 Next Appt Details Follow Up: 1 Year, Reason: Provider Name:Pedro Hedrick , 02/24/2026 09:00:00 AM, [address] [place] [address], [address], [place], [address], Progress Notes * DELON JOHNSONOB:1955 ([age] yo M)Acc No.[id number]:02/18/2025 Progress Notes Patient:?KURT JOHNSON Provider:?Pedro Herdick MD :1955???Age:69 Y???Sex:Male Horace e:02/18/2025 Address:[address] [place] [address] Pcp:Robinson Napoles N.P. Subjective: * Chief Complaints: * ???1. Patient presents today for excess iron. * HPI: ???incontinence:? I saw Kurt in follow-up today in regard to his underlying history of fatty liver, excess iron, and discussion of colorectal cancer screening. I last saw Kurt 1 year ago in February 2024. Since that time he has continued to do his phlebotomies every 2 months with an excellent resolution of the previous excess iron. His ferritin had been as high as 2600 when this started and the most recent ferritin level as of the end of November was down to 126. Other labs from the end of November revealed a hemoglobin of 13.0, a completely normal liver profile except for an AST of 40, and iron of 126, iron saturation of 38%, and the ferritin level of 126. One year ago he had a normal alpha-fetoprotein level. An abdominal ultrasound at that time described a basically normal-appearing liver and spleen, and no ascites. However the measurement of liver fibrosis with the ultrasound was elevated, although that would tend to go against all his other clinical assessments of the liver which are indicating normal liver function. Kurt feels well. He enjoys a good appetite and denies any significant heartburn or dysphagia. His bowel movements are been regular and without any sign of bleeding. He denies any abdominal pain, jaundice, increasing abdominal girth, edema, nor pruritus. * Medical History:?Hypertensio n, Denies [place],DM,CVA,Lung disease,renal disease, Gout, Neg. screening colonoscopy in 12/[address] Sharif, Neg. screening colonoscopy in 07/2015, Elevated LFTs with associated significant elevated iron stores based on his [...] begin a monthly phlebotomy schedule in the spring., Screening colonoscopy in December of 2022 revealed 2 small tubular adenomas that were removed., Coronary artery disease. He was found to have some partial blockages on a CT of the heart in 2023 and is being treated medically by [facility]. He did not require a cardiac catheterization and has no history of [place].. * Surgical History:?Vasectomy , Detached retina . * Family History:?Father: dece ased, diagnosed with HTN (hypertension).?Mother: , at age 59, diagnosed with Colon cancer.? No liver disease. * Social History:?Tobacco Use:?Tobacco Use/Smoking?Are you a: nonsmoker.?Drugs/Alcohol:?Alcohol Screen?Points: 3, Interpretation: Negative.?Miscellaneous:?Marital status: . 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 ???Nonsmoker; occasional alcohol-1 glass of red wine per day. * Medications:?Taking Aspirin 81 , Taking Losartan Potassium , Taking Nifedical XL , Taking Atorvastatin Calcium 40 MG Tablet 1 tablet Orally Once a day , Taking Lisinopril 40 MG Tablet 1 tablet Orally Once a day , Taking Atenolol 100 MG Tablet 1 tablet Orally Once a day , Not-Taking/PRN Allopurinol 150 mg Tablet 1 tablet Orally Once a day , Discontinued NIFEdipine ER 30 MG Tablet Extended Release 24 Hour 1 tablet Orally Once a day , Medication List reviewed and reconciled with the patient * Allergies:?Ragweed. Objective: * Vitals:?Wt:190lbs, Ht: 68.5 in, BMI:28.47Index, BP:111/77mm Hg, Wt-k.18. Assessment: * Assessment: 1.?Colon cancer screening - Z12.11 (Primary)???2.?Iron excess - E83.19???3.?Liver fibrosis - K74.00???4.?Fatty liver - K76.0???5.?Elevated liver function tests - R79.89??? Overall, Kurt appears quite w ell. He does not describe nor show any [...] thereafter. I shall check an abdominal ultrasound, alpha-fetoprotein level, and liver fibrosis score for follow-up [...] advised of his progress. Plan: * Treatment: ? Value Reference Range ?Prothrombin Time 11.3 10.9-1 2.4 - SEC * ?INTERNATIONAL NORM RATIO 1.0 0.9-1.1 - ?LAB: Liver Fibrosis Pnl ?Imaging: US abdomen comp w elastography* Notes: Repeat colonoscopy in 2027?? * Preventive Medicine:? ??Screenings:?Fall Risk Screening?Fall Risk Assessment:?No falls in the past year,?Screening:?No falls in the past year,?Assessment:?Not performed, no reason specified,?Plan of Care:?Not documented, no reason specified.? * Follow Up:?1 Year * * The named appointment provid er may or may not be the originator of this progress note, and it is not deemed complete until electronically signed by the appointment provider. Sign off status: Pending * Provider:?Pedro Hedrick MD Date:? 025 Generated for [place]/Santiago/Leathaitting on:?02/22/2025 12:25 PM EDT History and Physical Notes * HPI (History of Present Illness) Category Sub-Category Detail Notes Category Not es incontinence I saw Kurt in follow-up today in regard to his underlying history of fatty liver, excess iron, and discussion of colorectal cancer screening. I last saw Kurt 1 year ago in February 2024. Since that time he has continued to do his phlebotomies every 2 months with an excellent resolution of the previous excess iron. His ferritin had been as high as 2600 when this started and the most recent ferritin level as of the end of November was down to 126. Other labs from the end of November revealed a hemoglobin of 13.0, a completely normal liver profile except for an AST of 40, and iron of 126, iron saturation of 38%, and the ferritin level of 126. One year ago he had a normal alpha-fetoprotein level. An abdominal ultrasound at that time described a basically normal-appearing liver and spleen, and no ascites. However the measurement of liver fibrosis with the ultrasound was elevated, although that would tend to go against all his other clinical assessments of the liver which are indicating normal liver function. Kurt feels well. He enjoys a good appetite and denies any significant heartburn or dysphagia. His bowel movements are been regular and without any sign of bleeding. He denies any abdominal pain, jaundice, increasing abdominal girth, edema, nor pruritus.
[2025-02-23 12:47] LABS: Alpha Fetoprotein 2.9 ng/mL (<6.1)
[2025-02-26 11:44] LABS: FIB-ALT 27 U/L (9-46); FIB-Alpha-2-Macroglobulin 187 mg/dL (106-279); FIB-Apolipoprotein A1 132 mg/dL (94-176); FIB-GGT 58 U/L (3-70); FIB-Haptoglobin 140 mg/dL (43-212); FIB-Total Bilirubin 0.7 mg/dL (0.2-1.2); Liver Fibrosis Score 0.46; Liver Fibrosis Stage F1-F2; Nec Inflam Act Grade A0; Nec Inflam Act Score 0.15; Reference ID 5476980
== END 2025-02-22 10:51 | disposition home or self-care (01) ==
LOC: HO.LAB 10:50
PROVIDERS: Visit Provider Internal Medicine
DX: Z12.11 Encounter for screening for malignant neoplasm of colon (principal); Z79.01 Long term (current) use of anticoagulants
CPT/HCPCS: 36415; 81596; 82105; 85610

== ENCOUNTER 2025-03-30 10:17 | Outpatient (AMB) | payer MEDICARE, SELFPAY ==
--- NOTE | 2025-03-30 10:32 | MHC.OFFVIS ---
Vital Signs 03/30/25 10:33 Height 5 ft 9 in Weight 190 lb BMI 28.1 BP 122/68 Blood Pressure Location Lt brachial Position Sitting Pulse 69 Pulse Source Monitor Intake Visit Reasons: 6 mth f/up Allergies Seasonal Allergies Allergy (Mild, Verified 12/29/24 11:24) Sneezing Medication List - Last Reconciled 03/30/25 by Eric Mitchell MD aspirin 81 mg PO DAILY atenolol 100 mg PO DAILY atorvastatin 40 mg PO QPM coQ10 (ubiquinol) (Qunol Marc CoQ10) 200 mg PO DAILY losartan 100 mg PO DAILY nifedipine ER 60 mg PO DAILY HPI Comments Details: Kurt returns for follow-up. In the past, he was seen regarding chest discomfort. On one occasion, he was walking and at that time, had tiredness and a discomfort in the chest. Then resolved completely never had a similar episode again. Subsequently, he underwent further workup with a stress test as well as coronary CTA. Since last seen, he states he feels completely normal and does not have any symptoms like angina or in fact anything cardiac related. Getting along fine. [facility] Medical History Asthma Hypertension Surgical History History of laser refractive surgery History of cholecystectomy History of vasectomy Family History Father Gout Diabetes Hypertension Past heart attack Mother Diabetes Colon cancer Sister No problems noted. Sister No problems noted. Son No problems noted. Son No problems noted. Social History Housing: House Alcohol intake: current Alcohol intake frequency: 0-2 drinks per day Alcohol type: wine Patient Tobacco Use Status: Never used Tobacco Tobacco use type: Cigarette e-Cigarette/Vaping Use: Never Used Second Hand Smoke Exposure: No service: No Current occupational status: retired Cognitive needs: No Hearing needs: No Vision needs: Yes (glasses ) Review of Systems Const Denies weakness ENT Denies dizziness Card Denies chest pain, Denies chest pain with activity, Denies syncope, Denies rapid heart rate, Denies pedal edema, Denies edema, Denies leg edema, Denies lightheadedness, Denies palpitations, Denies dyspnea, Denies dyspnea on exertion and Denies orthopnea Resp Denies cough, Denies dyspnea and Denies dyspnea on exertion GI Denies hematochezia and Denies change in stool character Musc Denies abnormal gait, Denies muscle cramps, Denies muscle weakness, Denies numbness, Denies radiating pain into limb and Denies tingling Neuro Denies abnormal gait, Denies dizziness, Denies syncope, Denies numbness, Denies tingling and Denies weakness Endo Denies palpitations Physical Exam Vital Signs: Last Vital Signs Pulse 69 03/30/25 10:33 BP 122/68 03/30/25 10:33 BMI result Body Mass Index 28.1 Const General: comfortable and no acute distress Orientation/consciousness: patient oriented x3 HEENT Other: Unremarkable Head: Yes normal to inspection Neck Neck: Yes normal visual inspection Chest Chest palpation & inspection: normal inspection of the chest Resp Auscultation: clear to auscultation bilaterally Cardio Palpation: normal PMI Heart sounds: S1 normal heart sound present, S2 normal heart sound present, no gallops, no murmurs and no rubs GI Palpation (GI): Soft to palpation Back/Spine/Pelvis Other: unremarkable Skin General skin exam: no rashes or lesions noted Neuro General: patient oriented x3 Extrem General: Yes normal to inspection Psych Mental Status: mental status grossly normal Office Procedures EKG Details: EKG with underlying sinus rhythm at 69/Min; no significant ST-T changes; [place]. [id number], Complete Assessment & Plan Assessment & Plan (1) Atherosclerotic cardiovascular disease: Code(s): I25.10 - Atherosclerotic heart disease of [place] coronary artery without angina pectoris Category: Medical (2) Hypertension: Code(s): I10 - Essential (primary) hypertension Category: Medical Qualifiers: Hypertension type: primary hypertension Qualified Code(s): I10 - Essential (primary) hypertension (3) Hyperlipidemia: Code(s): E78.5 - Hyperlipidemia, unspecified Category: Medical Plan Cardiac studies reviewed. In the baseline EKG, underlying rhythm is sinus at a rate of 75/Min; no significant ST-T changes and otherwise unremarkable. Normal MA and corrected QT. ETT- 6.1 METS on Qasim protocol, reached target heart rate, no angina, had fatigue and shortness of breath. In the EKGs, there is some horizontal appearing ST depression in the recovery part but otherwise upsloping STs. Overall, inconclusive per my evaluation. Echocardiogram- LVEF 61%. Inferoseptal wall, basal inferior and mid inferior segments hypokinetic (unclear if some of this could be artifactual). Coronary CTA- moderate, 50-60% stenosis in the distal aspect of proximal LAD. Mild plaque in the proximal circumflex, mid RCA. Borderline low FFR of 0.81 in the mid LAD. Overall, possible isolated episode of angina but no recurrence and otherwise completely symptom-free. Long-term aspirin. Blood pressure is controlled on atenolol, losartan, nifedipine. With regard to lipids, LDL is 40 mg/dL and triglycerides 214 mg/dL. He is on statins. Add Vascepa. Recheck lipids in few months. Advised him to watch out for angina and if any concerns, to contact us immediately. Follow up with us in one year. Discussion Notes I discussed with the patient his current status regarding coronary artery disease and dyslipidemia, affirming the effectiveness of statin therapy in substantially decreasing cholesterol levels. I highlighted that current evidence supports medical therapy over stents unless angina symptoms return. The role of Vascepa was explained in the context of reducing elevated triglyceride levels and further lowering cardiovascular risk. The option of a family physician?s recommendation for long-term management was positively regarded. Importance of monitoring lipid levels was discussed, with follow-up testing planned. Patient consented to adjustments in his treatment plan and expressed understanding of potential risks associated with triglyceride elevations. Patient was informed and verbally consented to the use of an ambient scribe for clinic note documentation during this visit. Orders: Orders Lipid Panel 3 Months E78.5 - Hyperlipidemia, unspecified, I25.10 - Atherosclerotic heart disease of [place] coronary artery without angina pectoris Medications: New icosapent ethyl (Vascepa) 2 grams (2 x 1 gram) PO BID 360 caps 3RF 90 days Patient Instructions: - Continue taking your prescribed statin medication. - Start taking Vascepa as discussed to help control triglyceride levels. - Maintain your current weight and consider ways to manage it if needed. - Monitor for any signs of chest pain or discomfort and report them if they occur. - Follow up on lab tests in 3-4 months to check on your cholesterol and triglycerides. - Ensure regular check-ups with your physician for ongoing health management. Coding Level of Care Code Est Pt Level 4 (87698) Complex EM visit Add On G2211 Diagnoses Atherosclerotic cardiovascular disease I25.10 Primary hypertension I10 Hypertension type: primary hypertension Hyperlipidemia E78.5 CPT Codes EKG - CPT: 51637-[id number], Complete ([id number])
[2025-03-30 10:33] VITALS: BP 122/68; PULSE 69; BMI 28.1
--- OUTSIDE RECORDS SUMMARY | 2025-03-30 11:55 | XMS_ITS | Patient Health Record ---
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 Primary Care Provider Pedro Chaparro [phone] Allergies Allergen (clinical drug ingredient) Drug/Non Drug Allergy documented on EMR Reaction Allergy Type Onset Date Status ragweed (uncoded) Unknown Allergy Ac tive Results Component Value Reference Range Notes Prothrombin Time INR Reviewed date:02/22/2025 10:46:46 PM Interpretation: Performing Lab:[facility], [address] [place] [phone] Notes/Report: Prothrombin Time 11.3 10.9-12.4 SEC INTERNATIONAL [...] mechanical prosthetic heart valves: 2.5 - 3.5 Liver Fibrosis Pnl Reviewed date:02/26/2025 05:57:56 PM Interpretation: Performing Lab:[facility], [address] [place] [phone] Notes/Report: Liver Fibrosis Score 0.46 Liver Fibrosis Stage F1-F2 Liver Fibrosis Interpretation SEE NOTE minimal fibrosis Fibro Test Score (f) Metavir Score f>=0 and f<=0.21 : F0 (no fibrosis) f>0.21 and f<=0.27 : F0-F1 (no fibrosis) f>0.27 and f<=0.31 : F1 (minimal fibrosis) f>0.31 and f<=0.48 : F1-F2 (minimal fibrosis) f>0.48 and f<=0.58 : F2 (moderate fibrosis) f>0.58 and f<=0.72 : F3 (advanced fibrosis) f>0.72 and f<=0.74 : F3-F4 (advanced fibrosis) f>0.74 and f<=1.00 : F4 (severe fibrosis) Nec Inflam Act Score 0.15 Nec Inflam Act Grade A0 Nec Inflam Act Interpretation SEE NOTE no activity ActiTest Score (a) Metavir Score a>=0 and a<=0.17 : A0 (no activity) a>0.17 and a<=0.29 : A0-A1 (no activity) a>0.29 and a<=0.36 : A1 (minimal activity) a>0.36 and a<=0.52 : A1-A2 (minimal activity) a>0.52 and a<=0.60 : A2 (significant activity) a>0.60 and a<=0.62 : A2-A3 (significant activity) a>0.62 and a<=1.00 : A3 (severe activity) RWR-Nfmzp-1-Macroglobulin 187 106-279 mg/dL FIB-Haptoglobin 140 43-212 mg/dL FIB-Apolipoprotein A1 132 94-176 mg/dL FIB-Total Bilirubin 0.7 0.2-1.2 mg/dL FIB-GGT 58 3-70 U/L FIB-ALT 27 9-46 U/L Reference ID [id number] Footnote SEE NOTE The reliability of results is dependent on compliance with the preanalytical and analytical conditions recommended by [employer]. The tests have to be deferred for: acute hemolysis, acute hepatitis, acute inflammation, extra hepatic cholestasis. The advice of a specialist should be sought for interpretation in chronic hemolysis and Gilbert's syndrome. The test interpretation is not validated in liver transplant patients. Isolated extreme values of one of the components should lead to caution in interpreting the results. In case of discordance between a biopsy result and a test, it is recommended to seek the advice of a specialist. The causes of these discordances could be due to a flaw of the test or to a flaw in the biopsy: i.e. a liver biopsy has a 33% variability rate for one fibrosis stage. FibroTest is interpretable for chronic hepatitis B and C, alcoholic and non alcoholic steatosis. ActiTest is interpretable for chronic hepatitis B and C. The performance characteristics have been determined by [employer] [facility]. It has not been cleared or approved by the U.S. Food and Drug Administration. Performance characteristics refer to the analytical performance of the test. [email or web address], the associated logo, FIGS and all associated [employer] balderas are the registered trademarks of [employer]. All third alliance party balderas - (R) and (TM) - are the property of their respective owners. (C) 3858-4611 [employer]. All rights reserved. THIS TEST WAS PERFORMED AT: [employer] [facility] [address] [place] [address] IVETTE HICKMAN MD,PHD,[place] Therapeutic Phlebotomy Reviewed date:08/10/2024 11:03:57 PM Interpretation: Performing Lab:[facility], [address] [place] [phone] Notes/Report: THER/HGB 14.5 14.0-18.0 g/dL THER/HCT TNP 42.0-52.0 % Therapeutic Phlebotomy Phlebotomy Performed 500 mls drawn on 04/14/24. Please note that a copy of this report has been sent to the Primary Care Physician, the ordering physician and any physician designated by patient request. Liver Panel Reviewed date:08/10/2024 11:03:24 PM Interpretation: Performing Lab:[facility], [address] [place] [phone] Notes/Report: Bilirubin Total 0.8 0.0-1.0 mg/dL Bilirubin Direct 0.3 0.0-0.5 mg/dL Aspartate Amino Transferase 74 5-37 U/L Alanine Aminotransferase 53 0-40 U/L Total Protein 7.2 6.5-8.0 g/dL Albumin Level 4.3 3.5-5.0 g/dL Alkaline Phosphatase 143 39-117 U/L IRON PROFILE Reviewed date:06/15/2024 11:28:56 PM Interpretation: Performing Lab:[facility], [address] [place] [phone] Notes/Report: Iron 108 45-160 mcg/dL Total Iron Binding Capacity 349 228-428 mcg/dL Percent Iron Saturation 31 15-50 % Unsaturated Iron Binding 241 Ferritin Reviewed date:07/05/2024 05:22:35 PM Interpretation: Performing Lab:[facility], [address] [place] [phone] Notes/Report: Ferritin 276 20-250 ng/mL Therapeutic Phlebotomy Reviewed date:06/16/2024 12:41:45 PM Interpretation: Performing Lab:[facility], [address] [place] [phone] Notes/Report: THER/HGB 13.9 14.0-18.0 g/dL THER/HCT TNP 42.0-52.0 % Therapeutic Phlebotomy Phlebotomy Performed 500 mls drawn on 06/15/24. Please note that a copy of this report has been sent to the Primary Care Physician, the ordering physician and any physician designated by patient request. Therapeutic Phlebotomy Reviewed date:08/10/2024 11:03:35 PM Interpretation: Performing Lab:[facility], [address] [place] [phone] Notes/Report: THER/HGB 13.3 14.0-18.0 g/dL THER/HCT TNP 42.0-52.0 % Therapeutic Phlebotomy Phlebotomy Performed 500 mls drawn on 08/10/24. Please note that a copy of this report has been sent to the Primary Care Physician, the ordering physician and any physician designated by patient request. Liver Panel Reviewed date:10/16/2024 09:16:54 PM Interpretation: Performing Lab:[facility], [address] [place] [phone] Notes/Report: Bilirubin Total 0.7 0.0-1.0 mg/dL Bilirubin Direct 0.2 0.0-0.5 mg/dL Aspartate Amino Transferase 60 5-37 U/L Alanine Aminotransferase 45 0-40 U/L Total Protein 7.1 6.5-8.0 g/dL Albumin Level 4.5 3.5-5.0 g/dL Alkaline Phosphatase 108 39-117 U/L IRON PROFILE Reviewed date:10/16/2024 09:17:05 PM Interpretation: Performing Lab:[address] [phone] Notes/Report: Iron 87 45-160 mcg/dL Total Iron Binding Capacity 360 228-428 mcg/dL Percent Iron Saturation 24 15-50 % Unsaturated Iron Binding 273 Ferritin Reviewed date:10/16/2024 09:15:19 PM Interpretation: Performing Lab:[facility], [address] [place] [phone] Notes/Report: Ferritin 193 20-250 ng/mL Therapeutic Phlebotomy Reviewed date:10/16/2024 09:17:18 PM Interpretation: Performing Lab:[address] [phone] Notes/Report: THER/HGB 13.5 14.0-18.0 g/dL THER/HCT TNP 42.0-52.0 % Therapeutic Phlebotomy Phlebotomy Performed 500 mls drawn on 10/15/24. Please note that a copy of this report has been sent to the Primary Care Physician, the ordering physician and any physician designated by patient request. Liver Panel Reviewed date:12/17/2024 07:00:46 PM Interpretation: Performing Lab:[facility], [address] [place] [phone] Notes/Report: Bilirubin Total 0.9 0.0-1.0 mg/dL Bilirubin Direct 0.3 0.0-0.5 mg/dL Aspartate Amino Transferase 40 5-37 U/L Alanine Aminotransferase 37 0-40 U/L Total Protein 7.2 6.5-8.0 g/dL Albumin Level 4.3 3.5-5.0 g/dL Alkaline Phosphatase 105 39-117 U/L IRON PROFILE Reviewed date:12/17/2024 07:00:59 PM Interpretation: Performing Lab:[address] [address] Notes/Report: Iron 126 45-160 mcg/dL Total Iron Binding Capacity 335 228-428 mcg/dL Percent Iron Saturation 38 15-50 % Unsaturated Iron Binding 209 Ferritin Reviewed date:12/17/2024 07:01:17 PM Interpretation: Performing Lab:[facility], [address] [place] [phone] Notes/Report: Ferritin 126 20-250 ng/mL Therapeutic Phlebotomy Reviewed date:12/17/2024 12:36:38 PM Interpretation: Performing Lab:[facility], [address] [place] [phone] Notes/Report: THER/HGB 13.0 14.0-18.0 g/dL THER/HCT TNP 42.0-52.0 % Therapeutic Phlebotomy Phlebotomy Performed 500 mls drawn on 12/17/24. Please note that a copy of this report has been sent to the Primary Care Physician, the ordering physician and any physician designated by patient request. Therapeutic Phlebotomy Reviewed date:02/20/2025 10:06:52 PM Interpretation: Performing Lab:[address] [address] Notes/Report: THER/HGB 14.9 14.0-18.0 g/dL THER/HCT TNP 42.0-52.0 % Therapeutic Phlebotomy Phlebotomy Performed 500 mls drawn on 02/18/25. Please note that a copy of this report has been sent to the Primary Care Physician, the ordering physician and any physician designated by patient request. Alpha Fetoprotein Reviewed date:02/26/2025 05:56:20 PM Interpretation: Performing Lab:[address] [phone] Notes/Report: Alpha Fetoprotein 2.9 <6.1 ng/mL This test was performed using the [employer] chemiluminescent method. Values obtained from different assay methods cannot be used interchangeably. AFP levels, regardless of value, should not be interpreted as absolute evidence of the presence or absence of disease. THIS TEST WAS PERFORMED AT: [employer] [address] [place] [address] BLANCA MCKINNON MD Reason For Referral No Information Medications Medication [...] Problem Status W/U Status Risk Notes Problem 340202709 Colon cancer screening (Z12.11) Active confirmed Problem 216110274 History of adenomatous polyp of colon (Z86.010) Active confirmed Problem Diverticular disease of colon (088295135) Diverticulosis of large intestine without perforation or abscess without bleeding (K57.30) Active confirmed Problem 693268614 Elevated liver function tests (R79.89) Active confirmed Problem 434553913599137 Preprocedural examination (Z01.818) Active confirmed Problem Fatty liver (012880721) Fatty liver (K76.0) Active confirmed Problem 334048848 Family history o f colon cancer (Z80.0) Active confirmed Problem 13569667 Iron excess (E83.19) Active confirmed Problem Elevated liver enzymes level (864629343) Elevated liver function tests (R94.5) Active confirmed Problem Hepatic fibrosis (disorder) (26311502) Liver fibrosis (K74.00) Active confirmed Vital Signs Blood pressure diastolic 77 mm Hg 02/18/2025 Height 68.5 in 02/18/2025 Blood pressure systolic 111 mm Hg 02/18/2025 Weight 190 lbs 02/18/2025 BMI 28.47 kg/m2 02/18/2025 Encounters Encounter Location Date Provider Diagnosis [facility] [address] [place] [phone] 02/18/2025 Pedro Hedrick Colon cancer screening Z12.11 ; Iron excess E83.19 ; Liver fibrosis K74.00 ; Fatty liver K76.0 and Elevated liver function tests R79.89 [facility] [address] [place] [phone] 02/18/2025 Pedro Hedrick Assessments Encounter Date Diagnosis (ICD [...] elastography 4 US abdomen comp w elastography 5 US biopsy liver 01/14/2023 Future Test Test Name Order Date COLONOSCOPY 01/26/2015 COLONOSCOPY 10/31/2022 Next Appt Details Provider Name:Pedro Hedrick , 02/24/2026 09:00:00 AM, [address] [place] [address], [address], [place], [address], Insurance Providers Payer Name Payer Address Payer Phone Subscriber Number Group Number Insured Name Patient Relationship to Insured Coverage Start Date Coverage End Date [facility] [address] [place] [address] [phone] [id number] RETABEST JEWELLO Self - patient is the insured Medical (General) History Medical History History ICD Code Hypertension Denies [place],DM,CVA,Lung disease,renal dise ase Gout Neg. screening colonoscopy [...] 2023 and is being treated medically by [facility]. He did not require a cardiac catheterization and has no history of [place]. Surgical History Surgery Date(Month/Year) Detached retina Vasectomy
== END 2025-03-30 10:51 | disposition home or self-care (01) ==
LOC: HO.HCS 10:18
PROVIDERS: Visit Provider Internal Medicine
DX: I25.10 Atherosclerotic heart disease of native coronary artery without angina pectoris (principal); I10 Essential (primary) hypertension; E78.5 Hyperlipidemia, unspecified
CPT/HCPCS: 93010; 99214; G2211

== ENCOUNTER → 2025-03-30 10:17 | Outpatient (BNVA) | payer MEDICARE, SELFPAY | PROVIDERS: Visit Provider Internal Medicine | DX: I25.10 Atherosclerotic heart disease of native coronary artery without angina pectoris (principal); I10 Essential (primary) hypertension; E78.5 Hyperlipidemia, unspecified | CPT/HCPCS: 93005; 99212 ==

== ENCOUNTER 2025-04-02 08:48 | Outpatient (AMB) | payer MEDICARE, SELFPAY ==
--- OUTSIDE RECORDS SUMMARY | 2025-04-02 09:04 | XMS_ITS | Patient Health Record ---
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 Primary Care Provider Pedro Chaparro [phone] Allergies Allergen (clinical drug ingredient) Drug/Non Drug Allergy documented on EMR Reaction Allergy Type Onset Date Status ragweed (uncoded) Unknown Allergy Ac tive Results Component Value Reference Range Notes Prothrombin Time INR Reviewed date:02/22/2025 10:46:46 PM Interpretation: Performing Lab:[facility], [address] [place] [phone] Notes/Report: Prothrombin Time 11.3 10.9-12.4 SEC INTERNATIONAL [...] Pnl Reviewed date:02/26/2025 05:57:56 PM Interpretation: Performing Lab:[facility], [address] [place] [phone] Notes/Report: Liver Fibrosis Score 0.46 Liver Fibrosis [...] a>0.62 and a<=1.00 : A3 (severe activity) YLY-Zxuwz-3-Macroglobulin 187 106-279 mg/dL FIB-Haptoglobin 140 43-212 mg/dL FIB-Apolipoprotein A1 132 94-176 mg/dL FIB-Total Bilirubin 0.7 0.2-1.2 mg/dL FIB-GGT 58 3-70 U/L FIB-ALT 27 9-46 U/L Reference ID [id number] Footnote SEE NOTE The reliability of results [...] The performance characteristics have been determined by [employer] [facility]. It has not been cleared or approved by the U.S. Food and Drug Administration. Performance characteristics refer to the analytical performance of the test. [employer], the associated logo, [employer] and all associated [employer] balderas are the registered trademarks of [employer]. All third republican balderas - (R) and (TM) - are the property of their respective owners. (C) 3533-2301 [employer]. All rights reserved. THIS TEST WAS PERFORMED AT: [employer] [facility] [address] [place] [address] IVETTE HICKMAN MD,PHD,[place] Therapeutic Phlebotomy Reviewed date:08/10/2024 11:03:57 PM Interpretation: Performing Lab:[facility], [address] [place] [phone] Notes/Report: THER/HGB 14.5 14.0-18.0 g/dL THER/HCT TNP 42.0-52.0 % Therapeutic Phlebotomy Phlebotomy Performed 500 mls drawn on 04/14/24. Please note that a copy of this report has been sent to the Primary Care Physician, the ordering physician and any physician designated by patient request. Liver Panel Reviewed date:08/10/2024 11:03:24 PM Interpretation: Performing Lab:[facility], [address] [place] [phone] Notes/Report: Bilirubin Total 0.8 0.0-1.0 mg/dL Bilirubin Direct 0.3 0.0-0.5 mg/dL Aspartate Amino Transferase 74 5-37 U/L Alanine Aminotransferase 53 0-40 U/L Total Protein 7.2 6.5-8.0 g/dL Albumin Level 4.3 3.5-5.0 g/dL Alkaline Phosphatase 143 39-117 U/L IRON PROFILE Reviewed date:06/15/2024 11:28:56 PM Interpretation: Performing Lab:[facility], [address] [place] [phone] Notes/Report: Iron 108 45-160 mcg/dL Total Iron Binding Capacity 349 228-428 mcg/dL Percent Iron Saturation 31 15-50 % Unsaturated Iron Binding 241 Ferritin Reviewed date:07/05/2024 05:22:35 PM Interpretation: Performing Lab:[facility], [address] [place] [phone] Notes/Report: Ferritin 276 20-250 ng/mL Therapeutic Phlebotomy Reviewed date:06/16/2024 12:41:45 PM Interpretation: Performing Lab:[facility], [address] [place] [phone] Notes/Report: THER/HGB 13.9 14.0-18.0 g/dL THER/HCT TNP 42.0-52.0 % Therapeutic Phlebotomy Phlebotomy Performed 500 mls drawn on 06/15/24. Please note that a copy of this report has been sent to the Primary Care Physician, the ordering physician and any physician designated by patient request. Therapeutic Phlebotomy Reviewed date:08/10/2024 11:03:35 PM Interpretation: Performing Lab:[facility], [address] [place] [phone] Notes/Report: THER/HGB 13.3 14.0-18.0 g/dL THER/HCT TNP 42.0-52.0 % Therapeutic Phlebotomy Phlebotomy Performed 500 mls drawn on 08/10/24. Please note that a copy of this report has been sent to the Primary Care Physician, the ordering physician and any physician designated by patient request. Liver Panel Reviewed date:10/16/2024 09:16:54 PM Interpretation: Performing Lab:[facility], [address] [place] [phone] Notes/Report: Bilirubin Total 0.7 0.0-1.0 mg/dL Bilirubin Direct 0.2 0.0-0.5 mg/dL Aspartate Amino Transferase 60 5-37 U/L Alanine Aminotransferase 45 0-40 U/L Total Protein 7.1 6.5-8.0 g/dL Albumin Level 4.5 3.5-5.0 g/dL Alkaline Phosphatase 108 39-117 U/L IRON PROFILE Reviewed date:10/16/2024 09:17:05 PM Interpretation: Performing Lab:[address] [phone] Notes/Report: Iron 87 45-160 mcg/dL Total Iron Binding Capacity 360 228-428 mcg/dL Percent Iron Saturation 24 15-50 % Unsaturated Iron Binding 273 Ferritin Reviewed date:10/16/2024 09:15:19 PM Interpretation: Performing Lab:[facility], [address] [place] [phone] Notes/Report: Ferritin 193 20-250 ng/mL Therapeutic Phlebotomy Reviewed date:10/16/2024 09:17:18 PM Interpretation: Performing Lab:[address] [phone] Notes/Report: THER/HGB 13.5 14.0-18.0 g/dL THER/HCT TNP 42.0-52.0 % Therapeutic Phlebotomy Phlebotomy Performed 500 mls drawn on 10/15/24. Please note that a copy of this report has been sent to the Primary Care Physician, the ordering physician and any physician designated by patient request. Liver Panel Reviewed date:12/17/2024 07:00:46 PM Interpretation: Performing Lab:[facility], [address] [place] [phone] Notes/Report: Bilirubin Total 0.9 0.0-1.0 mg/dL Bilirubin Direct 0.3 0.0-0.5 mg/dL Aspartate Amino Transferase 40 5-37 U/L Alanine Aminotransferase 37 0-40 U/L Total Protein 7.2 6.5-8.0 g/dL Albumin Level 4.3 3.5-5.0 g/dL Alkaline Phosphatase 105 39-117 U/L IRON PROFILE Reviewed date:12/17/2024 07:00:59 PM Interpretation: Performing Lab:[address] [address] Notes/Report: Iron 126 45-160 mcg/dL Total Iron Binding Capacity 335 228-428 mcg/dL Percent Iron Saturation 38 15-50 % Unsaturated Iron Binding 209 Ferritin Reviewed date:12/17/2024 07:01:17 PM Interpretation: Performing Lab:[facility], [address] [place] [phone] Notes/Report: Ferritin 126 20-250 ng/mL Therapeutic Phlebotomy Reviewed date:12/17/2024 12:36:38 PM Interpretation: Performing Lab:[facility], [address] [place] [phone] Notes/Report: THER/HGB 13.0 14.0-18.0 g/dL THER/HCT TNP 42.0-52.0 % Therapeutic Phlebotomy Phlebotomy Performed 500 mls drawn on 12/17/24. Please note that a copy of this report has been sent to the Primary Care Physician, the ordering physician and any physician designated by patient request. Therapeutic Phlebotomy Reviewed date:02/20/2025 10:06:52 PM Interpretation: Performing Lab:[address] [address] Notes/Report: THER/HGB 14.9 14.0-18.0 g/dL THER/HCT TNP 42.0-52.0 % Therapeutic Phlebotomy Phlebotomy Performed 500 mls drawn on 02/18/25. Please note that a copy of this report has been sent to the Primary Care Physician, the ordering physician and any physician designated by patient request. Alpha Fetoprotein Reviewed date:02/26/2025 05:56:20 PM Interpretation: Performing Lab:[address] [phone] Notes/Report: Alpha Fetoprotein 2.9 <6.1 ng/mL This test was performed using the Rod [place] chemiluminescent method. Values obtained from different assay methods cannot be used interchangeably. AFP levels, regardless of value, should not be interpreted as absolute evidence of the presence or absence of disease. THIS TEST WAS PERFORMED AT: [employer] [address] [place] [phone] BLANCA MCKINNON MD Reason For Referral No [...] Problem Status W/U Status Risk Notes Problem 227244402 Colon cancer screening (Z12.11) Active confirmed Problem 713670108 History of adenomatous polyp of colon (Z86.010) Active confirmed Problem Diverticular disease of colon (412660503) Diverticulosis of large intestine without perforation or abscess without bleeding (K57.30) Active confirmed Problem 732890256 Elevated liver function tests (R79.89) Active confirmed Problem 183921548972116 Preprocedural examination (Z01.818) Active confirmed Problem Fatty liver (146327976) Fatty liver (K76.0) Active confirmed Problem 116382670 Family history o f colon cancer (Z80.0) Active confirmed Problem 89450764 Iron excess (E83.19) Active confirmed Problem Elevated liver enzymes level (069471320) Elevated liver function tests (R94.5) Active confirmed Problem Hepatic fibrosis (disorder) (88045083) Liver fibrosis (K74.00) Active confirmed Vital Signs Blood pressure diastolic 77 mm Hg 02/18/2025 Height 68.5 in 02/18/2025 Blood pressure systolic 111 mm Hg 02/18/2025 Weight 190 lbs 02/18/2025 BMI 28.47 kg/m2 02/18/2025 Encounters Encounter Location Date Provider Diagnosis [facility] [address] [place] [phone] 02/18/2025 Pedro Hedrick Colon cancer screening Z12.11 ; Iron excess E83.19 ; Liver fibrosis K74.00 ; Fatty liver K76.0 and Elevated liver function tests R79.89 [facility] [address] [place] [phone] 02/18/2025 Pedro Hedrick Assessments Encounter Date Diagnosis [...] Provider Name:Pedro Hedrick , 02/24/2026 09:00:00 AM, [address] [place] [address], [address], [place], [address], Insurance Providers Payer Name Payer Address Payer Phone Subscriber Number Group Number Insured Name Patient Relationship to Insured Coverage Start Date Coverage End Date [facility] [address] [place] [address] [id number] RET[employer]EST JEWELLO Self - patient is the insured Medical (General) History Medical History History ICD Code Hypertension Denies [place],DM,CVA,Lung disease,renal dise ase Gout Neg. screening colonoscopy [...] 2023 and is being [place] medically [place] [facility]. He did not require a cardiac catheterization and has no history of [place]. Surgical History Surgery Date(Month/Year) Detached retina Vasectomy
--- NOTE | 2025-04-02 09:11 | MHC.PC.OV ---
Vital Signs 04/02/25 09:12 Height 5 ft 9 in Weight 188 lb 3.2 oz BMI 27.8 BP 132/66 Blood Pressure Location Lt brachial Position Sitting Respiration 16 Pulse 70 Pulse Source Pulse Oximeter Temp 97.8 F Temp Source Oral Pulse Oximetry (%) 95 Oxygen Delivery Method Room Air Intake Visit Reasons: follow up 3 months- transfer from [facility] [employer] Required: No Accompanied by: Self / Same As Patient Allergies Seasonal Allergies Allergy (Mild, Verified 04/02/25 09:31) Sneezing Medication List - Last Reconciled 04/02/25 by SOPHY Pfeiffer aspirin 81 mg PO DAILY atenolol 100 mg PO DAILY atorvastatin 40 mg PO QPM coQ10 (ubiquinol) (Qunol Marc CoQ10) 200 mg PO DAILY icosapent ethyl (Vascepa) 1 g PO ONCE losartan 100 mg PO DAILY nifedipine ER 60 mg PO DAILY Tobacco use date assessed: 04/02/25 Fall risk assessment: No Falls in past year Last assessed Fall Risk: 04/02/25 Dental Screening Dental Screen Date: 04/02/25 Did you have a dental visit in the last 12 months?: Yes Did you have a dental problem in the last 6 months where you did not have access to dental care?: No Was dental information given to patient?: Patient has dentist HPI follow up 3 months- transfer from [facility] HPI Details The patient is a 69-year-old male who was presenting for transitioned of care from Dr. Lamar who retired. Patient reports that he was promised to be placed with Dr. Cheung and that is what Dr. Lamar recommended States that his son is a physician and also recommends that he sees a doctor Reports that he will see anyone today but going forward he would like to be scheduled with Dr. Cheung The patient reports that sometimes not often he has a low blood pressure 95/56 in the morning but this we will goes back up in the afternoon Reports that these low blood pressures are before he takes his medication because he usually takes his medication around 10:00 His medical history is significant for essential hypertension treated for 15 years, noting variability in his daily blood pressure readings. Previously diagnosed with hyperferritinemia, he has undergone regular therapeutic phlebotomies to manage the condition, leading to anemia. The hemoglobin levels are now continuously assessed to keep them under a specified threshold. Additionally, there is potential for a historical misdiagnosis of asthma, per patient, with current absence of related medication or significant symptoms. Gout is also noted in his medical history, but it has been inactive since 2006. . [facility] Medical History Asthma Hypertension Surgical History History of laser refractive surgery History of cholecystectomy History of vasectomy Family History Father Gout Diabetes Hypertension Past heart attack Mother Diabetes Colon cancer Sister No problems noted. Sister No problems noted. Son No problems noted. Son No problems noted. Social History Housing: House Alcohol intake: current Alcohol intake frequency: 0-2 drinks per day Alcohol type: wine Patient Tobacco Use Status: Never used Tobacco Tobacco use type: Cigarette e-Cigarette/Vaping Use: Never Used Second Hand Smoke Exposure: No service: No Current occupational status: retired Cognitive needs: No Hearing needs: No Vision needs: Yes (glasses ) Questionnaire PHQ-9 Over the last 2 weeks, how often have you been bothered by any of the following problems? 1. Little interest or pleasure in doing things: not at all 2. Feeling down, depressed, or hopeless: not at all 3. Trouble falling or staying asleep, or sleeping too much: not at all 4. Feeling tired or having little energy: not at all 5. Poor appetite or overeating: not at all 6. Feeling bad about yourself - or that you are a failure or have let yourself or your family down: not at all 7. Trouble concentrating on things, such as reading the newspaper or watching television: not at all 8. Moving or speaking so slowly that other people could have noticed. Or the opposite - being so fidgety or restless that you have been moving around a lot more than usual: not at all 9. Thoughts that you would be better off or of hurting yourself in some way: not at all Total score: 0 Depression Screening Interpretation: Negative Depression Screening Done: Yes Source: Developed by Drs. Pedro L. StaceyJanice miller, Randall Romo and colleagues, with an educational cintia from [employer]. Thrive Questionnaire Date Thrive assessed: 04/02/25 I am a: Patient What is your living situation today?: I have a steady place to live Within the past 12 months, did the food you bought not last and you didn't have the money to get more?: Never true Within the past 12 months, did you worry whether your food would run out before you got money to buy more?: Never true Do you have trouble paying for medicines?: No Do you have trouble getting transportation to medical appointments?: No Do you have trouble paying your heating and electricity bill?: No Do you have trouble taking care of your child, family member or friend?: No Do you have trouble with day-to-day activities such as bathing, preparing meals, shopping, managing finances, etc.?: No Are you currently unemployed and looking for a job?: No Are you interested in more education?: No Please select the resources that you would like help with: None Currently or been in a relationship where the following occur: No concerns reported THRIVE Score: 0 AUDIT C Alcohol Use Questionnaire (AUDIT-C) 1. How often do you have a drink containing alcohol?: 2-3 times a week 2. How many drinks containing alcohol do you have on a typical day when you are drinking?: 1 or 2 3. How often do you have six or more drinks on one occasion?: Never Total Score: 3 Score Reviewed/Action Taken: No LEYDI-7 AMB Questionnaire LEYDI-7 Date LEYDI - 7 assessed: 04/02/25 Feeling nervous, anxious, or on edge: 0 = Not at all Not being able to stop or control worryin = Not at all Worrying too much about different things: 0 = Not at all Trouble relaxin = Not at all Being so restless that it is hard to sit still: 0 = Not at all Becoming easily annoyed or irritable: 0 = Not at all Feeling afraid as if something awful might happen: 0 = Not at all Total LEYDI-7 score (0-4 normal; 5-9 mild; 10-14 moderate; 15-21 severe): 0 Source: Developed by Janice Dalal Kurt Kroenke and colleagues, with an educational cintia from [employer]. Review of Systems Const Denies headache(s) Eyes Denies loss of vision ENT Denies vertigo, Denies dizziness, Denies headache(s) and Denies sore throat Card Denies chest pain, Denies leg edema and Denies lightheadedness Resp Denies cough, Denies hemoptysis and Denies wheezing GI Denies abdominal pain, Denies melena, Denies constipation, Denies diarrhea and Denies vomiting Denies dysuria, Denies urinary frequency and Denies urinary urgency Musc Denies arthralgias, Denies joint swelling, Denies numbness and Denies tingling Neuro Denies Abnormal speech present, Denies behavioral changes, Denies vertigo, Denies dizziness, Denies headache(s), Denies loss of vision, Denies memory loss, Denies numbness and Denies tingling Psych Denies anxiety, Denies behavioral changes, Denies depression, Denies memory loss and Denies panic attacks Kurt/Lymph Denies easy bleeding and Denies easy bruising Aller/Immun Denies wheezing Physical exam (Primary Care) Vital Signs: Last Vital Signs Temp 97.8 F 04/02/25 09:12 Pulse 70 04/02/25 09:12 Resp 16 04/02/25 09:12 BP 132/66 04/02/25 09:12 Pulse Ox 95 04/02/25 09:12 Oxygen Delivery Method Room Air 04/02/25 09:12 BMI result Body Mass Index 27.8 Tobacco/Smoking Status: Tobacco use Status Tobacco use date assessed 04/02/25 04/02/25 09:20 Patient Tobacco Use Status Never used Tobacco 04/02/25 09:20 Tobacco use type Cigarette 04/02/25 09:20 e-Cigarette/Vaping Use Never Used 04/02/25 09:20 PHQ-9: PHQ-9 Score PHQ-9: Total score 0 04/02/25 09:46 Depression Screening Interpretation: Negative Thrive Assessment: Date of Thrive Assessment Date Thrive assessed 04/02/25 04/02/25 09:20 Currently or been in a relationship where the following occur: No concerns reported Const General: healthy appearing, no acute distress, alert and awake Nutritional Appearance: well nourished Orientation/consciousness: oriented to person, oriented to place and oriented to time HENMT Ears: TM's normal bilaterally General nose exam: Normal nasal mucous membranes and turbinates present Eyes Conjunctivae: conjunctivae normal Sclerae: sclerae normal Pupils: Equal, round and reactive pupils present Neck Neck: Yes no lymphadenopathy and Yes no JVD Thyroid: Thyroid normal Carotids: no bruits Resp Effort & Inspection: normal respiratory effort and not tachypneic Auscultation: no crackles, no rales, no rhonchi and no wheezes Cardio Rate: regular rate Rhythm: regular rhythm Heart sounds: no murmurs and normal S1 and S2 GI Palpation (GI): Soft to palpation, nontender, no hepatomegaly and no splenomegaly Auscultation: normal bowel sounds Skin General skin exam: no rashes or lesions noted and dry skin Neuro General: oriented to person, oriented to place and oriented to time Cranial nerves: Yes Equal, round and reactive pupils present Speech: No Abnormal speech present Gait exam (Neuro): Normal gait present Motor exam (neuro): no tremor noted Extrem Right upper extremity: full ROM Left upper extremity: full ROM Right lower extremity: full ROM; no edema Left lower extremity: full ROM; no edema Psych Mental Status: mental status grossly normal Speech and movement: Normal speech and movement present Affect: normal affect Attitude: cooperative Thought process: Normal thought process present Results Reviewed Results Reviewed: Laboratory Tests 12/25/24 02/22/25 09:06 11:15 RBC 3.76 L Hgb 13.4 L Hct 37.9 L MCV 100.8 H MCH 35.6 H MCHC 35.4 RDW 12.7 Plt Count 172 PT 11.3 INR 1.0 Sodium 141 Potassium 3.9 Chloride 104 Carbon Dioxide 26 Anion Gap 15 BUN 12 Creatinine 1.21 Estimated GFR 59 Fasting Glucose 121 H Calcium 9.5 Total Bilirubin 1.7 H AST 50 H ALT 37 Alkaline Phosphatase 97 Total Protein 8.1 H Albumin 4.5 Triglycerides 214 H Cholesterol 117 LDL Cholesterol, Calc 40 HDL Cholesterol 35 L Coding Level of Care Code Est Pt Level 4 (31011) Diagnoses Primary hypertension I10 Hypertension type: primary hypertension Mild intermittent asthma without complication J45.20 Asthma severity: mild Asthma persistence: intermittent Asthma complication type: uncomplicated Pure hypercholesterolemia E78.00 Hyperlipidemia type: pure hypercholesterolemia Elevated ferritin R79.89 Atherosclerotic cardiovascular disease I25.10 Time Spent (min) 41 Assessment & Plan Assessment & Plan (1) Hypertension: Code(s): I10 - Essential (primary) hypertension Category: Medical Qualifiers: Hypertension type: primary hypertension Qualified Code(s): I10 - Essential (primary) hypertension Plan: Encouraged DASH diet and activity as tolerated-goal systolic is less than 130 mmhg Refrain from alcohol use and if you smoke, smoking cessation is strongly advised Continue Losartan 100 mg, nifedipine ER 60 mg daily, atenolol 100 mg daily (2) Asthma: Comment: stable; same meds Code(s): J45.909 - Unspecified asthma, uncomplicated Category: Medical Qualifiers: Asthma severity: mild Asthma persistence: intermittent Asthma complication type: uncomplicated Qualified Code(s): J45.20 - Mild intermittent asthma, uncomplicated Plan: Stable, denies any respiratory symptoms (3) Hyperlipidemia: Code(s): E78.5 - Hyperlipidemia, unspecified Category: Medical Qualifiers: Hyperlipidemia type: pure hypercholesterolemia Qualified Code(s): E78.00 - Pure hypercholesterolemia, unspecified Plan: Discussed lifestyle modifications including dietary changes and physical activity Continue atorvastatin 40 mg q.p.m., Vascepa 1 g daily (4) Elevated ferritin: Code(s): R79.89 - Other specified abnormal findings of blood chemistry Category: Medical Plan: Intermittent therapeutic phlebotomies Follow up with GI as scheduled (5) Atherosclerotic cardiovascular disease: Code(s): I25.10 - Atherosclerotic heart disease of [place] coronary artery without angina pectoris Category: Medical Plan: Echocardiogram- LVEF 61%. Inferoseptal wall, basal inferior and mid inferior segments hypokinetic (unclear if some of this could be artifactual). Coronary CTA- moderate, 50-60% stenosis in the distal aspect of proximal LAD. Mild plaque in the proximal circumflex, mid RCA. Borderline low FFR of 0.81 in the mid LAD. Continue aspirin 81 mg has feel, atorvastatin 40 mg Q p.m., Vascepa 1 g p.o. daily Orders: Orders Hemoglobin A1c Today D64.9 - Anemia, unspecified, E78.5 - Hyperlipidemia, unspecified, I10 - Essential (primary) hypertension, I25.10 - Atherosclerotic heart disease of [place] coronary artery without angina pectoris, J45.909 - Unspecified asthma, uncomplicated, R05 - Cough, R07.9 - Chest pain, unspecified, R79.89 - Other specified abnormal findings of blood chemistry Vitamin B12 and Folate Today D64.9 - Anemia, unspecified, E78.5 - Hyperlipidemia, unspecified, I10 - Essential (primary) hypertension, I25.10 - Atherosclerotic heart disease of [place] coronary artery without angina pectoris, J45.909 - Unspecified asthma, uncomplicated, R05 - Cough, R07.9 - Chest pain, unspecified, R79.89 - Other specified abnormal findings of blood chemistry Complete Blood Count Auto Diff Today D64.9 - Anemia, unspecified, E78.5 - Hyperlipidemia, unspecified, I10 - Essential (primary) hypertension, I25.10 - Atherosclerotic heart disease of [place] coronary artery without angina pectoris, J45.909 - Unspecified asthma, uncomplicated, R05 - Cough, R07.9 - Chest pain, unspecified, R79.89 - Other specified abnormal findings of blood chemistry Comprehensive Fis[place]ail. Panel Fast Today D64.9 - Anemia, unspecified, E78.5 - Hyperlipidemia, unspecified, I10 - Essential (primary) hypertension, I25.10 - Atherosclerotic heart disease of [place] coronary artery without angina pectoris, J45.909 - Unspecified asthma, uncomplicated, R05 - Cough, R07.9 - Chest pain, unspecified, R79.89 - Other specified abnormal findings of blood chemistry Lipid Panel Today D64.9 - Anemia, unspecified, E78.5 - Hyperlipidemia, unspecified, I10 - Essential (primary) hypertension, I25.10 - Atherosclerotic heart disease of [place] coronary artery without angina pectoris, J45.909 - Unspecified asthma, uncomplicated, R05 - Cough, R07.9 - Chest pain, unspecified, R79.89 - Other specified abnormal findings of blood chemistry Vitamin D 25-OH Total Today D64.9 - Anemia, unspecified, E78.5 - Hyperlipidemia, unspecified, I10 - Essential (primary) hypertension, I25.10 - Atherosclerotic heart disease of [place] coronary artery without angina pectoris, J45.909 - Unspecified asthma, uncomplicated, R05 - Cough, R07.9 - Chest pain, unspecified, R79.89 - Other specified abnormal findings of blood chemistry TSH reflex Free T4 Today D64.9 - Anemia, unspecified, E78.5 - Hyperlipidemia, unspecified, I10 - Essential (primary) hypertension, I25.10 - Atherosclerotic heart disease of [place] coronary artery without angina pectoris, J45.909 - Unspecified asthma, uncomplicated, R05 - Cough, R07.9 - Chest pain, unspecified, R79.89 - Other specified abnormal findings of blood chemistry UA CC w/rflx Micro + Cult Today D64.9 - Anemia, unspecified, E78.5 - Hyperlipidemia, unspecified, I10 - Essential (primary) hypertension, I25.10 - Atherosclerotic heart disease of [place] coronary artery without angina pectoris, J45.909 - Unspecified asthma, uncomplicated, R05 - Cough, R07.9 - Chest pain, unspecified, R79.89 - Other specified abnormal findings of blood chemistry Patient Instructions: Labs ordered for the patient to complete as soon as possible. Patient will be following up with Dr. Cheung
[2025-04-02 09:12] VITALS: BP 132/66; PULSE 70; RESP 16; TEMP 36.6; O2SAT 95; BMI 27.8
== END 2025-04-02 09:52 | disposition home or self-care (01) ==
LOC: HO.HMCH 08:49
DX: I10 Essential (primary) hypertension (principal); J45.20 Mild intermittent asthma, uncomplicated; E78.00 Pure hypercholesterolemia, unspecified; R79.89 Other specified abnormal findings of blood chemistry; I25.10 Atherosclerotic heart disease of native coronary artery without angina pectoris

== ENCOUNTER → 2025-04-02 08:48 | Outpatient (BNVA) | payer MEDICARE, SELFPAY | PROVIDERS: PCP Internal Medicine | DX: I10 Essential (primary) hypertension (principal); J45.20 Mild intermittent asthma, uncomplicated; E78.00 Pure hypercholesterolemia, unspecified; R79.89 Other specified abnormal findings of blood chemistry; I25.10 Atherosclerotic heart disease of native coronary artery without angina pectoris | CPT/HCPCS: 96127; 99212 ==

== ENCOUNTER 2025-04-07 07:50 | Outpatient (REF) | payer MEDICARE, SELFPAY ==
--- NOTE | ~2025-04-07 | US_ITS ---
EXAMINATION: US COMPLETE ABDOMEN WITH LIVER ELASTOGRAPHY CLINICAL INFORMATION: Elevated LFTs. Liver fibrosis. COMPARISON: None available. TECHNIQUE: Real-time imaging of the abdominal viscera. Noninvasive ultrasound liver fibrosis assessment is performed using Андр[employer] El[employer] point quantification shear wave elastography (pSWE) with a C5-2 MHz transducer. Multiple elastography samples are obtained. FINDINGS: PANCREAS: The visualized pancreatic head and body are normal in appearance. The remainder of the pancreas is obscured from visualization by the overlying bowel gas. ABDOMINAL AORTA: No aortic aneurysm is seen. INFERIOR VENA CAVA: Visualized portions are normal. LIVER: The liver demonstrates normal size, contour and increased echogenicity. No focal lesion or intrahepatic biliary duct dilatation. The right lobe measures 13.8 cm in length. The left lobe measures 9.1 cm in length. Portal flow is hepatopedal Shear wave liver elastography median stiffness is 2.77 m/s (reference: normal median stiffness is 1.3 m/s or less). IQR/median stiffness to assess sampling precision is 0.05 (reference: good quality data set is IQR/median stiffness of 0.15 or less). GALLBLADDER: The gallbladder is physiologically distended without evidence of stones, sludge, polyps, wall thickening or pericholecystic fluid. COMMON BILE DUCT: Normal in caliber measuring 0.3 cm in diameter. RIGHT KIDNEY: No hydronephrosis. No renal calculi or focal parenchymal lesions. The kidney measures 12.0 cm in maximum dimension. LEFT KIDNEY: There is mild pelvic fullness. No renal calculi or focal parenchymal lesions. The kidney measures 11.2 cm in maximum dimension. SPLEEN: Unremarkable. The spleen measures 8.9 cm in maximum dimension. FREE FLUID: None seen. US/US abdomen comp w elastography IMPRESSION: 1. Diffuse increased liver echogenicity likely hepatic steatosis. No focal lesion seen. 2. Liver elastography: Median liver stiffness measures 2.77 m/s suggestive of CSPH. 3. Mild left kidney pelvic fullness REFERENCE: Society of Radiologists in Ultrasound Liver Stiffness Thresholds (2020): LIVER STIFFNESS THRESHOLDS: *Liver Stiffness equal or less than 1.3 m/s: High probability of being normal. *Liver Stiffness less than 1.7 m/s: In the absence of other known clinical signs, rules out compensated advanced chronic liver disease. *Liver Stiffness 1.7-2.1 m/s: Suggestive of compensated advanced chronic liver disease but need further test for confirmation. *Liver Stiffness over 2.1 m/s: Rules in compensated advanced chronic liver disease. *Liver Stiffness over 2.4 m/s: Suggestive of clinically significant portal hypertension. QUALITY OF DATA SET: *IQR/Median value equal or less than 0.15 implies a quality data set. *IQR/Median value over 0.15 implies a poor quality data set. SIGNIFICANT CHANGE FROM PRIOR EXAM: Significant change if liver stiffness measurement is 10% or greater from prior exam. OTHER CONSIDERATIONS: The stage of liver fibrosis may be overestimated in the setting of acute hepatitis, liver inflammation, elevated liver function tests, hepatic vascular congestion, obstructive cholestasis, non-fasting state, and infiltrative diseases such as amyloidosis and lymphoma. In some patients with NAFLD, the liver stiffness thresholds for compensated advanced chronic liver disease may be lower. In causes other than viral hepatitis and NAFLD, liver stiffness thresholds are not well established. Electronically signed by: Juan Carlos Nagy MD 04/07/2025 09:36 AM EDT
--- OUTSIDE RECORDS SUMMARY | 2025-04-07 07:55 | XMS_ITS | Patient Health Record ---
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 Primary Care Provider Pedro Chaparro [phone] Allergies Allergen (clinical drug ingredient) Drug/Non Drug Allergy documented on EMR Reaction Allergy Type Onset Date Status ragweed (uncoded) Unknown Allergy Ac tive Results Component Value Reference Range Notes Prothrombin Time INR Reviewed date:02/22/2025 10:46:46 PM Interpretation: Performing Lab:[facility], [address] [place] [phone] Notes/Report: Prothrombin Time 11.3 10.9-12.4 SEC INTERNATIONAL [...] Reviewed date:02/26/2025 05:57:56 PM Interpretation: Performing Lab:[facility], [address] [place] [phone] Notes/Report: Liver Fibrosis Score 0.46 Liver Fibrosis [...] a>0.62 and a<=1.00 : A3 (severe activity) RKL-Knkqk-0-Macroglobulin 187 106-279 mg/dL FIB-Haptoglobin 140 43-212 mg/dL FIB-Apolipoprotein A1 132 94-176 mg/dL FIB-Total Bilirubin 0.7 0.2-1.2 mg/dL FIB-GGT 58 3-70 U/L FIB-ALT 27 9-46 U/L Reference ID [id number] Footnote SEE NOTE The reliability of results [...] The performance characteristics have been determined by [facility]. It has not been cleared or approved by the U.S. Food and Drug Administration. Performance characteristics refer to the analytical performance of the test. [employer], the associated logo, Histogen and all associated [facility] balderas are the registered trademarks of [facility]. All third constitution party balderas - (R) and (TM) - are the property of their respective owners. (C) 1468-2311 [facility] [employer]. All rights reserved. THIS TEST WAS PERFORMED AT: [facility] [place] [address] [place] [address] IVETTE HICKMAN MD,PHD,[facility] Therapeutic Phlebotomy Reviewed date:08/10/2024 11:03:57 PM Interpretation: Performing Lab:[facility], [address] [place] [phone] Notes/Report: THER/HGB 14.5 14.0-18.0 g/dL THER/HCT TNP 42.0-52.0 % Therapeutic Phlebotomy Phlebotomy Performed 500 mls drawn on 04/14/24. Please note that a copy of this report has been sent to the Primary Care Physician, the ordering physician and any physician designated by patient request. Liver Panel Reviewed date:08/10/2024 11:03:24 PM Interpretation: Performing Lab:[facility], [address] [place] [phone] Notes/Report: Bilirubin Total 0.8 0.0-1.0 mg/dL Bilirubin Direct 0.3 0.0-0.5 mg/dL Aspartate Amino Transferase 74 5-37 U/L Alanine Aminotransferase 53 0-40 U/L Total Protein 7.2 6.5-8.0 g/dL Albumin Level 4.3 3.5-5.0 g/dL Alkaline Phosphatase 143 39-117 U/L IRON PROFILE Reviewed date:06/15/2024 11:28:56 PM Interpretation: Performing Lab:[facility], [address] [place] [phone] Notes/Report: Iron 108 45-160 mcg/dL Total Iron Binding Capacity 349 228-428 mcg/dL Percent Iron Saturation 31 15-50 % Unsaturated Iron Binding 241 Ferritin Reviewed date:07/05/2024 05:22:35 PM Interpretation: Performing Lab:[facility], [address] [place] [phone] Notes/Report: Ferritin 276 20-250 ng/mL Therapeutic Phlebotomy Reviewed date:06/16/2024 12:41:45 PM Interpretation: Performing Lab:[facility], [address] [place] [phone] Notes/Report: THER/HGB 13.9 14.0-18.0 g/dL THER/HCT TNP 42.0-52.0 % Therapeutic Phlebotomy Phlebotomy Performed 500 mls drawn on 06/15/24. Please note that a copy of this report has been sent to the Primary Care Physician, the ordering physician and any physician designated by patient request. Therapeutic Phlebotomy Reviewed date:08/10/2024 11:03:35 PM Interpretation: Performing Lab:[facility], [address] [place] [phone] Notes/Report: THER/HGB 13.3 14.0-18.0 g/dL THER/HCT TNP 42.0-52.0 % Therapeutic Phlebotomy Phlebotomy Performed 500 mls drawn on 08/10/24. Please note that a copy of this report has been sent to the Primary Care Physician, the ordering physician and any physician designated by patient request. Liver Panel Reviewed date:10/16/2024 09:16:54 PM Interpretation: Performing Lab:[facility], [address] [place] [phone] Notes/Report: Bilirubin Total 0.7 0.0-1.0 mg/dL Bilirubin Direct 0.2 0.0-0.5 mg/dL Aspartate Amino Transferase 60 5-37 U/L Alanine Aminotransferase 45 0-40 U/L Total Protein 7.1 6.5-8.0 g/dL Albumin Level 4.5 3.5-5.0 g/dL Alkaline Phosphatase 108 39-117 U/L IRON PROFILE Reviewed date:10/16/2024 09:17:05 PM Interpretation: Performing Lab:[address] [phone] Notes/Report: Iron 87 45-160 mcg/dL Total Iron Binding Capacity 360 228-428 mcg/dL Percent Iron Saturation 24 15-50 % Unsaturated Iron Binding 273 Ferritin Reviewed date:10/16/2024 09:15:19 PM Interpretation: Performing Lab:[facility], [address] [place] [phone] Notes/Report: Ferritin 193 20-250 ng/mL Therapeutic Phlebotomy Reviewed date:10/16/2024 09:17:18 PM Interpretation: Performing Lab:[address] [phone] Notes/Report: THER/HGB 13.5 14.0-18.0 g/dL THER/HCT TNP 42.0-52.0 % Therapeutic Phlebotomy Phlebotomy Performed 500 mls drawn on 10/15/24. Please note that a copy of this report has been sent to the Primary Care Physician, the ordering physician and any physician designated by patient request. Liver Panel Reviewed date:12/17/2024 07:00:46 PM Interpretation: Performing Lab:[facility], [address] [place] [phone] Notes/Report: Bilirubin Total 0.9 0.0-1.0 mg/dL Bilirubin Direct 0.3 0.0-0.5 mg/dL Aspartate Amino Transferase 40 5-37 U/L Alanine Aminotransferase 37 0-40 U/L Total Protein 7.2 6.5-8.0 g/dL Albumin Level 4.3 3.5-5.0 g/dL Alkaline Phosphatase 105 39-117 U/L IRON PROFILE Reviewed date:12/17/2024 07:00:59 PM Interpretation: Performing Lab:[address] [phone] Notes/Report: Iron 126 45-160 mcg/dL Total Iron Binding Capacity 335 228-428 mcg/dL Percent Iron Saturation 38 15-50 % Unsaturated Iron Binding 209 Ferritin Reviewed date:12/17/2024 07:01:17 PM Interpretation: Performing Lab:[facility], [address] [place] [phone] Notes/Report: Ferritin 126 20-250 ng/mL Therapeutic Phlebotomy Reviewed date:12/17/2024 12:36:38 PM Interpretation: Performing Lab:[facility], [address] [place] [phone] Notes/Report: THER/HGB 13.0 14.0-18.0 g/dL THER/HCT TNP 42.0-52.0 % Therapeutic Phlebotomy Phlebotomy Performed 500 mls drawn on 12/17/24. Please note that a copy of this report has been sent to the Primary Care Physician, the ordering physician and any physician designated by patient request. Therapeutic Phlebotomy Reviewed date:02/20/2025 10:06:52 PM Interpretation: Performing Lab:[address] [phone] Notes/Report: THER/HGB 14.9 14.0-18.0 g/dL THER/HCT TNP 42.0-52.0 % Therapeutic Phlebotomy Phlebotomy Performed 500 mls drawn on 02/18/25. Please note that a copy of this report has been sent to the Primary Care Physician, the ordering physician and any physician designated by patient request. Alpha Fetoprotein Reviewed date:02/26/2025 05:56:20 PM Interpretation: Performing Lab:[address] [phone] Notes/Report: Alpha Fetoprotein 2.9 <6.1 ng/mL This test was performed using the Rod [place] chemiluminescent method. Values obtained from different assay methods cannot be used interchangeably. AFP levels, regardless of value, should not be interpreted as absolute evidence of the presence or absence of disease. THIS TEST WAS PERFORMED AT: [facility] [address] [place] [phone] BLANCA MCKINNON MD Reason For Referral No [...] Problem Status W/U Status Risk Notes Problem 745739602 Colon cancer screening (Z12.11) Active confirmed Problem 367617746 History of adenomatous polyp of colon (Z86.010) Active confirmed Problem Diverticular disease of colon (441792326) Diverticulosis of large intestine without perforation or abscess without bleeding (K57.30) Active confirmed Problem 191958047 Elevated liver function tests (R79.89) Active confirmed Problem 175653792678026 Preprocedural examination (Z01.818) Active confirmed Problem Fatty liver (684763136) Fatty liver (K76.0) Active confirmed Problem 021232077 Family history o f colon cancer (Z80.0) Active confirmed Problem 36931548 Iron excess (E83.19) Active confirmed Problem Elevated liver enzymes level (514784396) Elevated liver function tests (R94.5) Active confirmed Problem Hepatic fibrosis (disorder) (54416789) Liver fibrosis (K74.00) Active confirmed Vital Signs Blood pressure diastolic 77 mm Hg 02/18/2025 Height 68.5 in 02/18/2025 Blood pressure systolic 111 mm Hg 02/18/2025 Weight 190 lbs 02/18/2025 BMI 28.47 kg/m2 02/18/2025 Encounters Encounter Location Date Provider Diagnosis [facility] [address] [place] [phone] 02/18/2025 Pedro Hedrick Colon cancer screening Z12.11 ; Iron excess E83.19 ; Liver fibrosis K74.00 ; Fatty liver K76.0 and Elevated liver function tests R79.89 [facility] [address] [place] [phone] 02/18/2025 Pedro Hedrick Assessments Encounter Date Diagnosis [...] Provider Name:Pedro Hedrick , 02/24/2026 09:00:00 AM, [address] [place] [address], [address], [place], [address], Insurance Providers Payer Name Payer Address Payer Phone Subscriber Number Group Number Insured Name Patient Relationship to Insured Coverage Start Date Coverage End Date [facility] [address] [place] [address] [id number] [employer] Self - patient is the insured Medical (General) History Medical History History ICD Code Hypertension Denies [place],DM,CVA,Lung disease,renal dise ase Gout Neg. screening colonoscopy [...] 2023 and is being treated medically by [facility] [place] [facility]. He did not require a cardiac catheterization and has no history of [place]. Surgical History Surgery Date(Month/Year) Detached retina Vasectomy
== END 2025-04-07 07:51 | disposition home or self-care (01) ==
LOC: HO.US 07:50
PROVIDERS: Visit Provider Internal Medicine
DX: K74.00 Hepatic fibrosis, unspecified (principal); K76.0 Fatty (change of) liver, not elsewhere classified; R79.89 Other specified abnormal findings of blood chemistry
CPT/HCPCS: 76700; 76981

== ENCOUNTER → 2025-04-07 07:51 | Outpatient (BNV) | payer MEDICARE, SELFPAY | PROVIDERS: Visit Provider Radiology Diagnostic Radiology | DX: R74.01 Elevation of levels of liver transaminase levels (principal) | CPT/HCPCS: 76700 ==

== ENCOUNTER 2025-04-20 08:57 | Outpatient (REF) | payer MEDICARE, SELFPAY ==
--- OUTSIDE RECORDS SUMMARY | 2025-04-20 09:21 | XMS_ITS | Patient Health Record ---
Author Organization [facility] Address [address] [place] [address] Care Team Providers Care Auto Service Station Attendant Name Role Phone Robinson Napoles N.P. Primary Care Provider Pedro Chaparro [phone] Allergies Allergen (clinical drug ingredient) Drug/Non Drug Allergy documented on EMR Reaction Allergy Type Onset Date Status ragweed (uncoded) Unknown Allergy Ac tive Results Component Value Reference Range Notes Prothrombin Time INR Reviewed date:02/22/2025 10:46:46 PM Interpretation: Performing Lab:[facility], [address] [place] [phone] Notes/Report: Prothrombin Time 11.3 10.9-12.4 SEC INTERNATIONAL [...] Pnl Reviewed date:02/26/2025 05:57:56 PM Interpretation: Performing Lab:[facility], [address] [place] [phone] Notes/Report: Liver Fibrosis Score 0.46 Liver Fibrosis [...] a>0.62 and a<=1.00 : A3 (severe activity) SDS-Hucfy-8-Macroglobulin 187 106-279 mg/dL FIB-Haptoglobin 140 43-212 mg/dL FIB-Apolipoprotein A1 132 94-176 mg/dL FIB-Total Bilirubin 0.7 0.2-1.2 mg/dL FIB-GGT 58 3-70 U/L FIB-ALT 27 9-46 U/L Reference ID [id number] Footnote SEE NOTE The reliability of results [...] The performance characteristics have been determined by [employer] [facility]. It has not been cleared or approved by the U.S. Food and Drug Administration. Performance characteristics refer to the analytical performance of the test. [employer], the associated logo, [employer] and all associated [employer] balderas are the registered trademarks of [employer]. All third green party balderas - (R) and (TM) - are the property of their respective owners. (C) [id number] [employer]. All rights reserved. THIS TEST WAS PERFORMED AT: [employer] [facility] [place] [place] [address] [place] [address] IVETTE HICKMAN MD,PHD,[place] Liver Panel Reviewed date:08/10/2024 11:03:24 PM Interpretation: Performing Lab:[facility], [address] [place] [phone] Notes/Report: Bilirubin Total 0.8 0.0-1.0 mg/dL Bilirubin Direct 0.3 0.0-0.5 mg/dL Aspartate Amino Transferase 74 5-37 U/L Alanine Aminotransferase 53 0-40 U/L Total Protein 7.2 6.5-8.0 g/dL Albumin Level 4.3 3.5-5.0 g/dL Alkaline Phosphatase 143 39-117 U/L IRON PROFILE Reviewed date:06/15/2024 11:28:56 PM Interpretation: Performing Lab:[facility], [address] [place] [phone] Notes/Report: Iron 108 45-160 mcg/dL Total Iron Binding Capacity 349 228-428 mcg/dL Percent Iron Saturation 31 15-50 % Unsaturated Iron Binding 241 Ferritin Reviewed date:07/05/2024 05:22:35 PM Interpretation: Performing Lab:[facility], [address] [place] [phone] Notes/Report: Ferritin 276 20-250 ng/mL Therapeutic Phlebotomy Reviewed date:06/16/2024 12:41:45 PM Interpretation: Performing Lab:[address] [address] Notes/Report: THER/HGB 13.9 14.0-18.0 g/dL THER/HCT TNP 42.0-52.0 % Therapeutic Phlebotomy Phlebotomy Performed 500 mls drawn on 06/15/24. Please note that a copy of this report has been sent to the Primary Care Physician, the ordering physician and any physician designated by patient request. Therapeutic Phlebotomy Reviewed date:08/10/2024 11:03:35 PM Interpretation: Performing Lab:[address] [address] Notes/Report: THER/HGB 13.3 14.0-18.0 g/dL THER/HCT TNP 42.0-52.0 % Therapeutic Phlebotomy Phlebotomy Performed 500 mls drawn on 08/10/24. Please note that a copy of this report has been sent to the Primary Care Physician, the ordering physician and any physician designated by patient request. Liver Panel Reviewed date:10/16/2024 09:16:54 PM Interpretation: Performing Lab:[address] [address] Notes/Report: Bilirubin Total 0.7 0.0-1.0 mg/dL Bilirubin Direct 0.2 0.0-0.5 mg/dL Aspartate Amino Transferase 60 5-37 U/L Alanine Aminotransferase 45 0-40 U/L Total Protein 7.1 6.5-8.0 g/dL Albumin Level 4.5 3.5-5.0 g/dL Alkaline Phosphatase 108 39-117 U/L IRON PROFILE Reviewed date:10/16/2024 09:17:05 PM Interpretation: Performing Lab:[address] [address] Notes/Report: Iron 87 45-160 mcg/dL Total Iron Binding Capacity 360 228-428 mcg/dL Percent Iron Saturation 24 15-50 % Unsaturated Iron Binding 273 Ferritin Reviewed date:10/16/2024 09:15:19 PM Interpretation: Performing Lab:[address] [address] Notes/Report: Ferritin 193 20-250 ng/mL Therapeutic Phlebotomy Reviewed date:10/16/2024 09:17:18 PM Interpretation: Performing Lab:[address] [address] Notes/Report: THER/HGB 13.5 14.0-18.0 g/dL THER/HCT TNP 42.0-52.0 % Therapeutic Phlebotomy Phlebotomy Performed 500 mls drawn on 10/15/24. Please note that a copy of this report has been sent to the Primary Care Physician, the ordering physician and any physician designated by patient request. Liver Panel Reviewed date:12/17/2024 07:00:46 PM Interpretation: Performing Lab:[facility], [address] [place] [phone] Notes/Report: Bilirubin Total 0.9 0.0-1.0 mg/dL Bilirubin Direct 0.3 0.0-0.5 mg/dL Aspartate Amino Transferase 40 5-37 U/L Alanine Aminotransferase 37 0-40 U/L Total Protein 7.2 6.5-8.0 g/dL Albumin Level 4.3 3.5-5.0 g/dL Alkaline Phosphatase 105 39-117 U/L IRON PROFILE Reviewed date:12/17/2024 07:00:59 PM Interpretation: Performing Lab:[facility], [address] [place] [phone] Notes/Report: Iron 126 45-160 mcg/dL Total Iron Binding Capacity 335 228-428 mcg/dL Percent Iron Saturation 38 15-50 % Unsaturated Iron Binding 209 Ferritin Reviewed date:12/17/2024 07:01:17 PM Interpretation: Performing Lab:[facility], [address] [place] [phone] Notes/Report: Ferritin 126 20-250 ng/mL Therapeutic Phlebotomy Reviewed date:12/17/2024 12:36:38 PM Interpretation: Performing Lab:[address] [address] Notes/Report: THER/HGB 13.0 14.0-18.0 g/dL THER/HCT TNP 42.0-52.0 % Therapeutic Phlebotomy Phlebotomy Performed 500 mls drawn on 12/17/24. Please note that a copy of this report has been sent to the Primary Care Physician, the ordering physician and any physician designated by patient request. Therapeutic Phlebotomy Reviewed date:02/20/2025 10:06:52 PM Interpretation: Performing Lab:[facility], [address] [place] [phone] Notes/Report: THER/HGB 14.9 14.0-18.0 g/dL THER/HCT TNP 42.0-52.0 % Therapeutic Phlebotomy Phlebotomy Performed 500 mls drawn on 02/18/25. Please note that a copy of this report has been sent to the Primary Care Physician, the ordering physician and any physician designated by patient request. Alpha Fetoprotein Reviewed date:02/26/2025 05:56:20 PM Interpretation: Performing Lab:[facility], [address] [place] [phone] Notes/Report: Alpha Fetoprotein 2.9 <6.1 ng/mL This test was performed using the Rod [place]on chemiluminescent method. Values obtained from different assay methods cannot be used interchangeably. AFP levels, regardless of value, should not be interpreted as absolute evidence of the presence or absence of disease. THIS TEST WAS PERFORMED AT: [employer] [address] [place] [phone] BLANCA MCKINNON MD US abdomen comp w elastograp hy (Not yet reviewed by provider) Interpretation: Performing Lab: Notes/Report: [address] [address] Ultrasound Report Signed Patient: Kurt Thacker Jr MR#: [id number] 9 : 1955 Acct:[id number] Age/Sex: 69 / M ADM Date: 04/07/25 Loc: HO.US Attending Dr: Pedro Hedrick MD Ordering Physician: Pedro Hedrick MD Date of Service: 04/07/25 Procedure(s): US abdomen comp w elastography Accession Number(s): [id number] cc: Robinson Napoles; Pedro Hedrick MD EXAMINATION: US COMPLETE ABDOMEN WITH LIVER ELASTOGRAPHY CLINICAL INFORMATION: Elevated LFTs. Liver fibrosis. COMPARISON: None available. TECHNIQUE: Real-time imaging of the abdominal viscera. Noninvasive ultrasound liver fibrosis assessment is performed using Андрей ElastPQ point quantification shear wave elastography (pSWE) with a C5-2 MHz transducer. Multiple elastography samples are obtained. FINDINGS: PANCREAS: The visualized pancreatic head and body are normal in appearance. The remainder of the pancreas is obscured from visualization by the overlying bowel gas. ABDOMINAL AORTA: No aortic aneurysm is seen. INFERIOR VENA CAVA: Visualized portions are normal. LIVER: The liver demonstrates normal size, contour and increased echogenicity. No focal lesion or intrahepatic biliary duct dilatation. The right lobe measures 13.8 cm in length. The left lobe measures 9.1 cm in length. Portal flow is hepatopedal Shear wave liver elastography median stiffness is 2.77 m/s (reference: normal median stiffness is 1.3 m/s or less). IQR/median stiffness to assess sampling precision is 0.05 (reference: good quality data set is IQR/median stiffness of 0.15 or less). GALLBLADDER: The gallbladder is physiologically distended without evidence of stones, sludge, polyps, wall thickening or pericholecystic fluid. COMMON BILE DUCT: Normal in caliber measuring 0.3 cm in diameter. RIGHT KIDNEY: No hydronephrosis. No renal calculi or focal parenchymal lesions. The kidney measures 12.0 cm in maximum dimension. LEFT KIDNEY: There is mild pelvic fullness. No renal calculi or focal parenchymal lesions. The kidney measures 11.2 cm in maximum dimension. SPLEEN: Unremarkable. The spleen measures 8.9 cm in maximum dimension. FREE FLUID: None seen. US/US abdomen comp w elastography IMPRESSION: 1. Diffuse increased liver echogenicity likely hepatic steatosis. No focal lesion seen. 2. Liver elastography: Median liver stiffness measures 2.77 m/s suggestive of CSPH. 3. Mild left kidney pelvic fullness REFERENCE: Society of Radiologists in Ultrasound Liver [...] liver stiffness thresholds are not well established. Electronically signed by: Juan Carlos Nagy MD 04/07/2025 09:36 AM EDT Dictated By: Juan Carlos Nagy MD Signed By: 04/14/25 1028 DD/ 0807 TD/TT: 04/07/25 0846 Speech And Language Assistant: MARCELO Reason For Referral No Information Medications Medication [...] Problem Status W/U Status Risk Notes Problem 657968491 Colon cancer screening (Z12.11) Active confirmed Problem 659543841 History of adenomatous polyp of colon (Z86.010) Active confirmed Problem Diverticular disease of colon (702537258) Diverticulosis of large intestine without perforation or abscess without bleeding (K57.30) Active confirmed Problem 628672357 Elevated liver function tests (R79.89) Active confirmed Problem 215627811195480 Preprocedural examination (Z01.818) Active confirmed Problem Fatty liver (077742699) Fatty liver (K76.0) Active confirmed Problem 986956518 Family history o f colon cancer (Z80.0) Active confirmed Problem 87847494 Iron excess (E83.19) Active confirmed Problem Elevated liver enzymes level (808725445) Elevated liver function tests (R94.5) Active confirmed Problem Hepatic fibrosis (disorder) (30559037) Liver fibrosis (K74.00) Active confirmed Vital Signs Blood pressure diastolic 77 mm Hg 02/18/2025 Height 68.5 in 02/18/2025 Blood pressure systolic 111 mm Hg 02/18/2025 Weight 190 lbs 02/18/2025 BMI 28.47 kg/m2 02/18/2025 Encounters Encounter Location Date Provider Diagnosis [facility] [address] [place] [phone] 02/18/2025 Pedro Hedrick Colon cancer screening Z12.11 ; Iron excess E83.19 ; Liver fibrosis K74.00 ; Fatty liver K76.0 and Elevated liver function tests R79.89 [facility] [address] [place] [phone] 02/18/2025 Pedro Hedrick [facility] [address] [place] [phone] 04/07/2025 Pedro Hedrick Assessments Encounter Date Diagnosis (ICD [...] elastography 5 US abdomen comp w elastography 5 US biopsy liver 01/14/2023 Future Test Test Name Order Date COLONOSCOPY 01/26/2015 COLONOSCOPY 10/31/2022 Next Appt Details Provider Name:Pedro Hedrick , 02/24/2026 09:00:00 AM, [address] [place] [address], [address], [place], [address], Insurance Providers Payer Name Payer Address Payer Phone Subscriber Number Group Number Insured Name Patient Relationship to Insured Coverage Start Date Coverage End Date [facility] [address] [place] [address] [id number] KURT THACKER Self - patient is the insured Medical (General) History Medical History History ICD Code Hypertension Denies NM,DM,CVA,Lung disease,renal dise ase Gout Neg. screening colonoscopy in 12/2002 wit amari Sharif Neg. screening colonoscopy in 07/2015 Elevated [...] cardiac catheterization and has no history of NM. Surgical History Surgery Date(Month/Year) Detached retina Vasectomy
== END 2025-04-20 08:58 | disposition home or self-care (01) ==
LOC: HO.BBR 08:57
PROVIDERS: Visit Provider Internal Medicine
DX: E83.19 Other disorders of iron metabolism (principal)
CPT/HCPCS: 85018; 99195

== ENCOUNTER 2025-06-25 10:59 | Outpatient (REF) | payer MEDICARE, SELFPAY ==
--- OUTSIDE RECORDS SUMMARY | 2025-06-25 12:02 | XMS_ITS | Patient Health Record ---
Author Organization [facility] Address [address] [place] [address] Care Team Providers Care Physician Office Nurse Name Role Phone Robinson Napoles N.P. Primary Care Provider Pedro Chaparro [phone] Allergies Allergen (clinical drug ingredient) Drug/Non Drug Allergy documented on EMR Reaction Allergy Type Onset Date Status ragweed (uncoded) Unknown Allergy Ac tive Results Component Value Reference Range Notes Prothrombin Time INR Reviewed date:02/22/2025 10:46:46 PM Interpretation: Performing Lab:[facility], [address] [place] [phone] Notes/Report: Prothrombin Time 11.3 10.9-12.4 SEC INTERNATIONAL [...] Reviewed date:02/26/2025 05:57:56 PM Interpretation: Performing Lab:[facility], [address] [place] [phone] Notes/Report: Liver Fibrosis Score 0.46 Liver Fibrosis [...] a>0.62 and a<=1.00 : A3 (severe activity) KXX-Zyxqi-1-Macroglobulin 187 106-279 mg/dL FIB-Haptoglobin 140 43-212 mg/dL FIB-Apolipoprotein A1 132 94-176 mg/dL FIB-Total Bilirubin 0.7 0.2-1.2 mg/dL FIB-GGT 58 3-70 U/L FIB-ALT 27 9-46 U/L Reference ID [id number] Footnote SEE NOTE The reliability of results [...] The performance characteristics have been determined by [employer] [facility]. It has not been cleared or approved by the U.S. Food and Drug Administration. Performance characteristics refer to the analytical performance of the test. [employer], the associated logo, [employer] and all associated [employer] balderas are the registered trademarks of [employer]. All third alliance party balderas - (R) and (TM) - are the property of their respective owners. (C) [id number] [employer]. All rights reserved. THIS TEST WAS PERFORMED AT: [employer] [facility] [address] [place] [address] IVETTE HICKMAN MD,PHD,[place] Therapeutic Phlebotomy Reviewed date:08/10/2024 11:03:35 PM Interpretation: Performing Lab:[facility], [address] [place] [phone] Notes/Report: THER/HGB 13.3 14.0-18.0 g/dL THER/HCT TNP 42.0-52.0 % Therapeutic Phlebotomy Phlebotomy Performed 500 mls drawn on 08/10/24. Please note that a copy of this report has been sent to the Primary Care Physician, the ordering physician and any physician designated by patient request. Liver Panel Reviewed date:10/16/2024 09:16:54 PM Interpretation: Performing Lab:[facility], [address] [place] [phone] Notes/Report: Bilirubin Total 0.7 0.0-1.0 mg/dL Bilirubin Direct 0.2 0.0-0.5 mg/dL Aspartate Amino Transferase 60 5-37 U/L Alanine Aminotransferase 45 0-40 U/L Total Protein 7.1 6.5-8.0 g/dL Albumin Level 4.5 3.5-5.0 g/dL Alkaline Phosphatase 108 39-117 U/L IRON PROFILE Reviewed date:10/16/2024 09:17:05 PM Interpretation: Performing Lab:[facility], [address] [place] [phone] Notes/Report: Iron 87 45-160 mcg/dL Total Iron Binding Capacity 360 228-428 mcg/dL Percent Iron Saturation 24 15-50 % Unsaturated Iron Binding 273 Ferritin Reviewed date:10/16/2024 09:15:19 PM Interpretation: Performing Lab:[facility], [address] [place] [phone] Notes/Report: Ferritin 193 20-250 ng/mL Therapeutic Phlebotomy Reviewed date:10/16/2024 09:17:18 PM Interpretation: Performing Lab:[facility], [address] [place] [phone] Notes/Report: THER/HGB 13.5 14.0-18.0 g/dL THER/HCT TNP 42.0-52.0 % Therapeutic Phlebotomy Phlebotomy Performed 500 mls drawn on 10/15/24. Please note that a copy of this report has been sent to the Primary Care Physician, the ordering physician and any physician designated by patient request. Liver Panel Reviewed date:12/17/2024 07:00:46 PM Interpretation: Performing Lab:[facility], [address] [place] [phone] Notes/Report: Bilirubin Total 0.9 0.0-1.0 mg/dL Bilirubin Direct 0.3 0.0-0.5 mg/dL Aspartate Amino Transferase 40 5-37 U/L Alanine Aminotransferase 37 0-40 U/L Total Protein 7.2 6.5-8.0 g/dL Albumin Level 4.3 3.5-5.0 g/dL Alkaline Phosphatase 105 39-117 U/L IRON PROFILE Reviewed date:12/17/2024 07:00:59 PM Interpretation: Performing Lab:[facility], [address] [place] [phone] Notes/Report: Iron 126 45-160 mcg/dL Total Iron Binding Capacity 335 228-428 mcg/dL Percent Iron Saturation 38 15-50 % Unsaturated Iron Binding 209 Ferritin Reviewed date:12/17/2024 07:01:17 PM Interpretation: Performing Lab:[facility], [address] [place] [phone] Notes/Report: Ferritin 126 20-250 ng/mL Therapeutic Phlebotomy Reviewed date:12/17/2024 12:36:38 PM Interpretation: Performing Lab:[address] [address] Notes/Report: THER/HGB 13.0 14.0-18.0 g/dL THER/HCT TNP 42.0-52.0 % Therapeutic Phlebotomy Phlebotomy Performed 500 mls drawn on 12/17/24. Please note that a copy of this report has been sent to the Primary Care Physician, the ordering physician and any physician designated by patient request. Therapeutic Phlebotomy Reviewed date:02/20/2025 10:06:52 PM Interpretation: Performing Lab:[address] [address] Notes/Report: THER/HGB 14.9 14.0-18.0 g/dL THER/HCT TNP 42.0-52.0 % Therapeutic Phlebotomy Phlebotomy Performed 500 mls drawn on 02/18/25. Please note that a copy of this report has been sent to the Primary Care Physician, the ordering physician and any physician designated by patient request. Alpha Fetoprotein Reviewed date:02/26/2025 05:56:20 PM Interpretation: Performing Lab:[address] [address] Notes/Report: Alpha Fetoprotein 2.9 <6.1 ng/mL This test was performed using the Rod [employer] chemiluminescent method. Values obtained from different assay methods cannot be used interchangeably. AFP levels, regardless of value, should not be interpreted as absolute evidence of the presence or absence of disease. THIS TEST WAS PERFORMED AT: [employer] [address] [place] [address] BLACNA MCKINNON MD US abdomen comp w elastograp hy (Not yet reviewed by provider) Interpretation: Performing Lab: Notes/Report: [address] [address] Ultrasound Report Signed Patient: Christel Thacker Jr MR#: [id number] 9 : 1955 Acct:[id number] Age/Sex: 69 / M ADM Date: 04/07/25 Loc: HO.US Attending Dr: Pedro Hedrick MD Ordering Physician: Pedro Hedrick MD Date of Service: 04/07/25 Procedure(s): US abdomen comp w elastography Accession Number(s): [id number] cc: Robinson Napoles; Pedro Hedrick MD EXAMINATION: [...] 04/14/25 1028 DD/ 0807 TD/TT: 04/07/25 0846 Barge Captain: MARCELO Therapeutic Phlebotomy Reviewed date:04/20/2025 10:19:00 PM Interpretation: Performing Lab:[facility], [address] [place] [phone] Notes/Report: THER/HGB 13.8 14.0-18.0 g/dL THER/HCT TNP 42.0-52.0 % Therapeutic Phlebotomy Phlebotomy Performed 500 mls drawn on 04/20/25. Please note that a copy of this [...] Problem Status W/U Status Risk Notes Problem 471520272 Colon cancer screening (Z12.11) Active confirmed Problem 942233416 History of adenomatous polyp of colon (Z86.010) Active confirmed Problem Diverticular disease of colon (381343127) Diverticulosis of large intestine without perforation or abscess without bleeding (K57.30) Active confirmed Problem 235299030 Elevated liver function tests (R79.89) Active confirmed Problem 189665930570529 Preprocedural examination (Z01.818) Active confirmed Problem Fatty liver (737648908) Fatty liver (K76.0) Active confirmed Problem 629038392 Family history o f colon cancer (Z80.0) Active confirmed Problem 76570385 Iron excess (E83.19) Active confirmed Problem Elevated liver enzymes level (000174392) Elevated liver function tests (R94.5) Active confirmed Problem Hepatic fibrosis (disorder) (14593696) Liver fibrosis (K74.00) Active confirmed Vital Signs Blood pressure diastolic 77 mm Hg 02/18/2025 Height 68.5 in 02/18/2025 Blood pressure systolic 111 mm Hg 02/18/2025 Weight 190 lbs 02/18/2025 BMI 28.47 kg/m2 02/18/2025 Encounters Encounter Location Date Provider Diagnosis [facility] [address] [place] [phone] 02/18/2025 Pedro Hedrick Colon cancer screening Z12.11 ; Iron excess E83.19 ; Liver fibrosis K74.00 ; Fatty liver K76.0 and Elevated liver function tests R79.89 [facility] [address] [place] [phone] 02/18/2025 Pedro Hedrick [facility] [address] [place] [phone] 04/07/2025 Pedro Hedrick Assessments Encounter Date Diagnosis (ICD Code) Assessment Notes Treatment Notes Treatment Clinical Notes Section Notes 02/18/2025 Colon cancer screening (ICD-10 - Z12.11) Repeat colonoscopy in 2027 Overall, Christel appears quite well. He does not describe [...] 02/18/2025 Iron excess (ICD-10 - E83.19) Overall, Christel appears quite well. He does not describe [...] 02/18/2025 Liver fibrosis (ICD-10 - K74.00) Overall, Christel appears quite well. He does not describe [...] 02/18/2025 Fatty liver (ICD-10 - K76.0) Overall, Christel appears quite well. He does not describe [...] liver function tests (ICD-10 - R79.89) Overall, Christel appears quite well. He does not describe [...] Appt Details Provider Name:Pedro Camarillo Ryley , 02/24/2026 09:00:00 AM, [address] [place] [address], [address], [place], [address], Insurance Providers Payer Name Payer Address Payer Phone Subscriber Number Group Number Insured Name Patient Relationship to Insured Coverage Start Date Coverage End Date [facility] [address] [place] [address] [id number] CHRISTEL THACKER Self - patient is the insured Medical (General) History Medical History History ICD Code Hypertension Denies PA,DM,CVA,Lung disease,renal dise ase Gout Neg. screening colonoscopy [...] 2023 and is being treated medically by [facility]. He did not require a cardiac catheterization and has no history of PA. Surgical History Surgery Date(Month/Year) Detached retina Vasectomy
[2025-06-25 12:08] LABS: Iron 61 mcg/dL (45-160); Percent Iron Saturation 17 % (15-50); Total Iron Binding Capacity 353 mcg/dL (228-428); Unsaturated Iron Binding 292 ug/dL
[2025-06-25 12:22] LABS: Ferritin 121 ng/mL (20-250)
== END 2025-06-25 11:00 | disposition home or self-care (01) ==
LOC: HO.BBR 10:59
PROVIDERS: Visit Provider Internal Medicine
DX: E83.19 Other disorders of iron metabolism (principal)
CPT/HCPCS: 36415; 82728; 83540; 85018; 99195

== ENCOUNTER 2025-07-03 09:58 | Outpatient (REF) | payer MEDICARE, SELFPAY ==
--- OUTSIDE RECORDS SUMMARY | 2025-07-03 10:00 | XMS_ITS | Patient Health Record ---
Author Organization [facility] Address [address] [place] [address] Care Team Providers Care Industrial Economist Name Role Phone Robinson Napoles N.P. Primary Care Provider Pedro Chaparro [phone] Allergies Allergen (clinical drug ingredient) Drug/Non Drug Allergy documented on EMR Reaction Allergy Type Onset Date Status ragweed (uncoded) Unknown Allergy Ac tive Results Component Value Reference Range Notes Prothrombin Time INR Reviewed date:02/22/2025 10:46:46 PM Interpretation: Performing Lab:[facility], [address] [place] [phone] Notes/Report: Prothrombin Time 11.3 10.9-12.4 SEC INTERNATIONAL [...] Pnl Reviewed date:02/26/2025 05:57:56 PM Interpretation: Performing Lab:[facility], [address] [place] [phone] Notes/Report: Liver Fibrosis Score 0.46 Liver Fibrosis [...] a>0.62 and a<=1.00 : A3 (severe activity) FIQ-Qhcve-8-Macroglobulin 187 106-279 mg/dL FIB-Haptoglobin 140 43-212 mg/dL FIB-Apolipoprotein A1 132 94-176 mg/dL FIB-Total Bilirubin 0.7 0.2-1.2 mg/dL FIB-GGT 58 3-70 U/L FIB-ALT 27 9-46 U/L Reference ID [id number] Footnote SEE NOTE The reliability of results [...] The performance characteristics have been determined by [facility]. It has not been cleared or approved by the U.S. Food and Drug Administration. Performance characteristics refer to the analytical performance of the test. [employer], the associated logo, [employer] and all associated [employer] are the registered trademarks of [employer]. All third libertarian balderas - (R) and (TM) - are the property of their respective owners. (C) 2867-2495 [employer]. All rights reserved. THIS TEST WAS PERFORMED AT: [facility] [place] [address] [place] [address] IVETTE HICKMAN MD,PHD,[place] Therapeutic Phlebotomy Reviewed date:08/10/2024 11:03:35 PM Interpretation: Performing Lab:[facility], [address] [place] [phone] Notes/Report: THER/HGB 13.3 14.0-18.0 g/dL THER/HCT TNP 42.0-52.0 % Therapeutic Phlebotomy Phlebotomy Performed 500 mls drawn on 08/10/24. Please note that a copy of this report has been sent to the Primary Care Physician, the ordering physician and any physician designated by patient request. Liver Panel Reviewed date:10/16/2024 09:16:54 PM Interpretation: Performing Lab:[facility], [address] [place] [phone] Notes/Report: Bilirubin Total 0.7 0.0-1.0 mg/dL Bilirubin Direct 0.2 0.0-0.5 mg/dL Aspartate Amino Transferase 60 5-37 U/L Alanine Aminotransferase 45 0-40 U/L Total Protein 7.1 6.5-8.0 g/dL Albumin Level 4.5 3.5-5.0 g/dL Alkaline Phosphatase 108 39-117 U/L IRON PROFILE Reviewed date:10/16/2024 09:17:05 PM Interpretation: Performing Lab:[facility], [address] [place] [phone] Notes/Report: Iron 87 45-160 mcg/dL Total Iron Binding Capacity 360 228-428 mcg/dL Percent Iron Saturation 24 15-50 % Unsaturated Iron Binding 273 Ferritin Reviewed date:10/16/2024 09:15:19 PM Interpretation: Performing Lab:[facility], [address] [place] [phone] Notes/Report: Ferritin 193 20-250 ng/mL Therapeutic Phlebotomy Reviewed date:10/16/2024 09:17:18 PM Interpretation: Performing Lab:[facility], [address] [place] [phone] Notes/Report: THER/HGB 13.5 14.0-18.0 g/dL THER/HCT TNP 42.0-52.0 % Therapeutic Phlebotomy Phlebotomy Performed 500 mls drawn on 10/15/24. Please note that a copy of this report has been sent to the Primary Care Physician, the ordering physician and any physician designated by patient request. Liver Panel Reviewed date:12/17/2024 07:00:46 PM Interpretation: Performing Lab:[facility], [address] [place] [phone] Notes/Report: Bilirubin Total 0.9 0.0-1.0 mg/dL Bilirubin Direct 0.3 0.0-0.5 mg/dL Aspartate Amino Transferase 40 5-37 U/L Alanine Aminotransferase 37 0-40 U/L Total Protein 7.2 6.5-8.0 g/dL Albumin Level 4.3 3.5-5.0 g/dL Alkaline Phosphatase 105 39-117 U/L IRON PROFILE Reviewed date:12/17/2024 07:00:59 PM Interpretation: Performing Lab:[facility], [address] [place] [phone] Notes/Report: Iron 126 45-160 mcg/dL Total Iron Binding Capacity 335 228-428 mcg/dL Percent Iron Saturation 38 15-50 % Unsaturated Iron Binding 209 Ferritin Reviewed date:12/17/2024 07:01:17 PM Interpretation: Performing Lab:[facility], [address] [place] [phone] Notes/Report: Ferritin 126 20-250 ng/mL Therapeutic Phlebotomy Reviewed date:12/17/2024 12:36:38 PM Interpretation: Performing Lab:[address] [phone] Notes/Report: THER/HGB 13.0 14.0-18.0 g/dL THER/HCT TNP 42.0-52.0 % Therapeutic Phlebotomy Phlebotomy Performed 500 mls drawn on 12/17/24. Please note that a copy of this report has been sent to the Primary Care Physician, the ordering physician and any physician designated by patient request. Therapeutic Phlebotomy Reviewed date:02/20/2025 10:06:52 PM Interpretation: Performing Lab:[address] [phone] Notes/Report: THER/HGB 14.9 14.0-18.0 g/dL THER/HCT TNP 42.0-52.0 % Therapeutic Phlebotomy Phlebotomy Performed 500 mls drawn on 02/18/25. Please note that a copy of this report has been sent to the Primary Care Physician, the ordering physician and any physician designated by patient request. Alpha Fetoprotein Reviewed date:02/26/2025 05:56:20 PM Interpretation: Performing Lab:[address] [address] Notes/Report: Alpha Fetoprotein 2.9 <6.1 ng/mL This test was performed using the Rod Malina chemiluminescent method. Values obtained from different assay methods cannot be used interchangeably. AFP levels, regardless of value, should not be interpreted as absolute evidence of the presence or absence of disease. THIS TEST WAS PERFORMED AT: [facility] [address] [place] [phone] BLANCA MCKINNON MD US abdomen comp w elastograp hy (Not yet reviewed by provider) Interpretation: Performing Lab: Notes/Report: [address] [address] Ultrasound Report Signed Patient: Kurt Thacker Jr MR#: [id number] 9 : 1955 Acct:[id number] Age/Sex: 69 / M ADM Date: 04/07/25 Loc: HO.US Attending Dr: Pedro Hedrick MD Ordering Physician: Pedro Hedrick MD Date of Service: 04/07/25 Procedure(s): US abdomen comp w elastography Accession Number(s): [id number] cc: Robinson Napoles; Pedro Hedrick MD EXAMINATION: [...] 04/14/25 1028 DD/ 0807 TD/TT: 04/07/25 0846 Plant Electrician: MARCELO Therapeutic Phlebotomy Reviewed date:04/20/2025 10:19:00 PM Interpretation: Performing Lab:[address] [address] Notes/Report: THER/HGB 13.8 14.0-18.0 g/dL THER/HCT TNP 42.0-52.0 % Therapeutic Phlebotomy Phlebotomy Performed 500 mls drawn on 04/20/25. Please note that a copy of this report has been sent to the Primary Care Physician, the ordering physician and any physician designated by patient request. IRON PROFILE (Not yet review ed by provider) Interpretation: Performing Lab:[address] [address] Notes/Report: Iron 61 45-160 mcg/dL Total Iron Binding Capacity 353 228-428 mcg/dL Percent Iron Saturation 17 15-50 % Unsaturated Iron Binding 292 Ferritin (Not yet reviewed b y provider) Interpretation: Performing Lab:[facility], [address] [place] [phone] Notes/Report: Ferritin 121 20-250 ng/mL Therapeutic Phlebotomy (Not yet reviewed by provider) Interpretation: Performing Lab:[facility], [address] [place] [phone] Notes/Report: THER/HGB 13.9 14.0-18.0 g/dL THER/HCT TNP 42.0-52.0 % Therapeutic Phlebotomy Phlebotomy Performed 500 mls drawn on 06/25/25. Please note that a copy of this [...] Problem Status W/U Status Risk Notes Problem 215710416 Colon cancer screening (Z12.11) Active confirmed Problem 674733277 History of adenomatous polyp of colon (Z86.010) Active confirmed Problem Diverticular disease of colon (032879042) Diverticulosis of large intestine without perforation or abscess without bleeding (K57.30) Active confirmed Problem 364268044 Elevated liver function tests (R79.89) Active confirmed Problem 582809849596707 Preprocedural examination (Z01.818) Active confirmed Problem Fatty liver (285254425) Fatty liver (K76.0) Active confirmed Problem 477722467 Family history o f colon cancer (Z80.0) Active confirmed Problem 92930493 Iron excess (E83.19) Active confirmed Problem Elevated liver enzymes level (018054435) Elevated liver function tests (R94.5) Active confirmed Problem Hepatic fibrosis (disorder) (47944037) Liver fibrosis (K74.00) Active confirmed Vital Signs Blood pressure diastolic 77 mm Hg 02/18/2025 Height 68.5 in 02/18/2025 Blood pressure systolic 111 mm Hg 02/18/2025 Weight 190 lbs 02/18/2025 BMI 28.47 kg/m2 02/18/2025 Encounters Encounter Location Date Provider Diagnosis [facility] [address] [place] [phone] 02/18/2025 Pedro Hedrick Colon cancer screening Z12.11 ; Iron excess E83.19 ; Liver fibrosis K74.00 ; Fatty liver K76.0 and Elevated liver function tests R79.89 [facility] [address] [place] [phone] 02/18/2025 Pedro Hedrick [facility] [address] [place] [phone] 04/07/2025 Pedro Hedrick Assessments Encounter Date Diagnosis [...] Time INR 12/02/2022 Partial Thromboplastin Time 12/02/2022 IRON PROFILE 06/25/2025 Ferritin 12/02/2022 Ferritin 10/31/2022 Ferritin 06/25/2025 Alpha 1 Anti-trypsin 10/31/2022 Liver Fibrosis Pnl 10/31/2022 Iron Liver Tissue 12/02/2022 Mitochondrial Antibody 10/31/2022 Smooth Muscle Antibody 10/31/2022 US abdomen comp w elastography 4 US abdomen comp w elastography 4 US abdomen comp w elastography 5 US abdomen comp w elastography 5 US biopsy liver 01/14/2023 Therapeutic Phlebotomy 06/25/2025 Future Test Test Name Order Date COLONOSCOPY 01/26/2015 COLONOSCOPY 10/31/2022 Next Appt Details Provider Name:Pedro Hedrick , 02/24/2026 09:00:00 AM, [address] [place] [address], [address], [place], [address], Insurance Providers Payer Name Payer Address Payer Phone Subscriber Number Group Number Insured Name Patient Relationship to Insured Coverage Start Date Coverage End Date [facility] [address] [place] [address] [phone] [id number] [employer] Self - patient is the insured Medical (General) History Medical History History ICD Code Hypertension Denies IN,DM,CVA,Lung disease,renal dise ase Gout Neg. screening colonoscopy [...] 2023 and is being treated medically by [facility]. He did not require a cardiac catheterization and has no history of IN. Surgical History Surgery Date(Month/Year) Detached retina Vasectomy
[2025-07-03 10:13] LABS: MANUAL DIFF FLAG NO
[2025-07-03 10:54] LABS: Hematocrit 34.4 % (42.0-52.0); Hemoglobin 12.1 g/dl (14.0-18.0); Imm Gran Abs Auto 0.02 X10*3/uL (0.00-0.03); Imm Gran Pct Auto 0.3 % (0.0-0.4); Lymphocytes Absolute Auto 1.8 X10*3/uL (1.2-4.9); Mean Corpuscular HGB Conc 35.2 g/dl (31.0-36.0); Mean Corpuscular Hemoglobin 34.9 pg (27.0-33.0); Mean Corpuscular Volume 99.1 fL (80.0-98.0); NRBC Abs Auto 0.000 X10*3/uL (0.0-0.012); NRBC Pct Auto 0.0 /100WBC (0.0-0.2); Platelet Count 210 X10*3/uL (160-400); Red Blood Count 3.47 X10*6/uL (4.60-5.80); White Blood Count 6.4 X10*3/uL (4.8-10.8)
[2025-07-03 11:02] LABS: Hemoglobin A1C 114.1730 umol/L; Total Hemoglobin (HGBA1C) 3177.9960 umol/L
[2025-07-03 12:03] LABS: Appearance Urine Clear; Glucose Urine UA Negative (Negative); PH 6.0 (5.0-9.0); Specific Gravity - Urine 1.015 (1.005-1.025); UMIC TRIGGER UACC YES
[2025-07-03 12:04] LABS: Alanine Aminotransferase 24 U/L (0-40); Albumin Level 4.4 g/dL (3.5-5.0); Alkaline Phosphatase 120 U/L (39-117); Anion Gap 14 (12-20); Aspartate Amino Transferase 33 U/L (5-37); Blood Urea Nitrogen 14 mg/dL (9-16); Calcium 9.0 mg/dL (8.4-10.2); Carbon Dioxide 23 mmol/L (22-29); Chloride 109 mmol/L (96-108); Cholesterol 115 mg/dL (<200); Estimated Glomerular Filt Rate > 60; HDL Cholesterol 36 mg/dL (>40); Potassium 3.6 mmol/L (3.3-5.1); Sodium 142 mmol/L (135-145); Total Protein 7.1 g/dL (6.5-8.0); Triglycerides 122 mg/dL (<150)
[2025-07-03 12:30] LABS: Folate 4.8 ng/mL (> or = 4.0); Vitamin B12 258 pg/mL (200-900)
== END 2025-07-03 09:59 | disposition home or self-care (01) ==
LOC: HO.LAB 09:58
PROVIDERS: Internal Medicine; PCP Internal Medicine
DX: I10 Essential (primary) hypertension (principal); I25.10 Atherosclerotic heart disease of native coronary artery without angina pectoris; J45.909 Unspecified asthma, uncomplicated; E78.5 Hyperlipidemia, unspecified; R07.9 Chest pain, unspecified; D64.9 Anemia, unspecified; R79.89 Other specified abnormal findings of blood chemistry; R05.9 Cough, unspecified
CPT/HCPCS: 36415; 80053; 80061; 81001; 81003; 82306; 82607; 82746; 83036; 84443; 85025

== ENCOUNTER 2025-07-05 14:17 | Outpatient (AMB) | payer MEDICARE, SELFPAY ==
[2025-07-05 14:38] VITALS: BP 110/62; PULSE 79; O2SAT 95; BMI 29.5
--- NOTE | 2025-07-05 14:38 | A.OFFPC_ITS ---
Vital Signs 07/05/25 14:38 Height 5 ft 9 in Weight 199 lb 8 oz BMI 29.5 BP 110/62 Blood Pressure Location Lt brachial Position Sitting Pulse 79 Pulse Source Pulse Oximeter Pulse Oximetry (%) 95 Oxygen Delivery Method Room Air Intake Visit Reasons: hld/htn Medical Dermatologist Required: No Accompanied by: Self / Same As Patient Allergies Seasonal Allergies Allergy (Mild, Verified 07/05/25 15:03) Sneezing Medication List - Last Reconciled 07/05/25 by Arpit Cheung MD aspirin 81 mg PO DAILY atenolol 100 mg PO DAILY atorvastatin 40 mg PO QPM coQ10 (ubiquinol) (Qunol Marc CoQ10) 200 mg PO DAILY icosapent ethyl (Vascepa) 1 g PO ONCE losartan 100 mg PO DAILY nifedipine ER 60 mg PO DAILY Tobacco use date assessed: 07/05/25 Fall risk assessment: No Falls in past year Last assessed Fall Risk: 07/05/25 Dental Screening Dental Screen Date: 07/05/25 Did you have a dental visit in the last 12 months?: Yes Did you have a dental problem in the last 6 months where you did not have access to dental care?: No Was dental information given to patient?: Patient has dentist HPI hld/htn HPI Details Patient comes in today for his follow up visit States that he feels okay He denies any headaches or dizziness Denies any chest pains, no shortness of breath No nausea/vomiting, no abdominal pain No change in bowel habits noted He had his follow-up labs done a couple of days ago - to discuss his results [facility] Medical History (Updated 07/12/25 @ 05:10 by Arpit Cheung MD) Mixed hyperlipidemia Essential hypertension Asthma Hypertension Surgical History History of laser refractive surgery History of cholecystectomy History of vasectomy Family History Father Gout Diabetes Hypertension Past heart attack Mother Diabetes Colon cancer Sister No problems noted. Sister No problems noted. Son No problems noted. Son No problems noted. Social History Housing: House Alcohol intake: current Alcohol intake frequency: 0-2 drinks per day Alcohol type: wine Patient Tobacco Use Status: Never used Tobacco Tobacco use type: Cigarette e-Cigarette/Vaping Use: Never Used Second Hand Smoke Exposure: No service: No Current occupational status: retired Cognitive needs: No Hearing needs: No Vision needs: Yes (glasses ) Questionnaire Thrive Questionnaire Date Thrive assessed: 03/31/25 I am a: Patient What is your living situation today?: I have a steady place to live Within the past 12 months, did the food you bought not last and you didn't have the money to get more?: Never true Within the past 12 months, did you worry whether your food would run out before you got money to buy more?: Never true Do you have trouble paying for medicines?: No Do you have trouble getting transportation to medical appointments?: No Do you have trouble paying your heating and electricity bill?: No Do you have trouble taking care of your child, family member or friend?: No Do you have trouble with day-to-day activities such as bathing, preparing meals, shopping, managing finances, etc.?: No Are you currently unemployed and looking for a job?: No Are you interested in more education?: No Please select the resources that you would like help with: None Currently or been in a relationship where the following occur: No concerns reported THRIVE Score: 0 AUDIT C Alcohol Use Questionnaire (AUDIT-C) 1. How often do you have a drink containing alcohol?: 2-3 times a week 2. How many drinks containing alcohol do you have on a typical day when you are drinking?: 1 or 2 3. How often do you have six or more drinks on one occasion?: Never Total Score: 3 Score Reviewed/Action Taken: Yes LEYDI-7 AMB Questionnaire LEYDI-7 Date LEYDI - 7 assessed: 04/02/25 Source: Developed by Drs. Pedro Ibarra, Janice Moya, Randall Romo and colleagues, with an educational cintia from [employer]. Review of Systems Const Denies chills, Denies fatigue, Denies fever(s) and Denies headache(s) ENT Denies dysphagia, Denies dizziness, Denies otalgia, Denies headache(s), Denies neck pain, Denies odynophagia and Denies sore throat Card Denies chest pain, Denies palpitations and Denies dyspnea Resp Denies chest congestion, Denies cough and Denies dyspnea GI Denies abdominal pain, Denies constipation, Denies dysphagia, Denies heartburn, Denies diarrhea, Denies nausea, Denies odynophagia and Denies vomiting Denies difficulty urinating, Denies dysuria, Denies nocturia and Denies urinary frequency Musc Denies back pain and Denies neck pain Skin/Breast Denies rash Neuro Denies dizziness and Denies headache(s) Endo Denies fatigue and Denies palpitations Physical exam (Primary Care) Vital Signs: Last Vital Signs Pulse 79 07/05/25 14:38 BP 110/62 07/05/25 14:38 Pulse Ox 95 07/05/25 14:38 Oxygen Delivery Method Room Air 07/05/25 14:38 BMI result Body Mass Index 29.5 Tobacco/Smoking Status: Tobacco use Status Tobacco use date assessed 07/05/25 07/05/25 14:41 Patient Tobacco Use Status Never used Tobacco 07/05/25 14:41 Tobacco use type Cigarette 07/05/25 14:41 e-Cigarette/Vaping Use Never Used 07/05/25 14:41 Thrive Assessment: Date of Thrive Assessment Date Thrive assessed 03/31/25 07/05/25 14:41 Currently or been in a relationship where the following occur: No concerns reported Const General: no acute distress and alert HENMT Ears: TM's normal bilaterally and EAC's normal Throat: Yes posterior oropharynx normal and Yes tonsils normal (no TP co ngestion) Neck Neck: Yes supple and No lymphadenopathy Thyroid: Thyroid normal Resp Auscultation: clear to auscultation bilaterally, no rales and no wheezes Cardio Rate: regular rate Rhythm: regular rhythm Heart sounds: no murmurs GI Palpation (GI): Soft to palpation and nontender Auscultation: normal bowel sounds General: Yes no CVA tenderness Back/Spine/Pelvis Back: no CVA tenderness Thoracic/Lumbar Spine: No lumbar spinal tenderness Skin Rashes: no rashes Extrem General: Yes no clubbing, cyanosis or edema Results Reviewed Results Reviewed: Laboratory Tests 07/03/25 07/03/25 10:10 10:12 WBC 6.4 Hct 34.4 L Plt Count 210 Sodium 142 Potassium 3.6 Creatinine 0.98 Estimated GFR > 60 Fasting Glucose 104 H Hemoglobin A1c % 5.4 Triglycerides 122 Cholesterol 115 LDL Cholesterol, Calc 55 HDL Cholesterol 36 L Vitamin B12 258 25-OH Vitamin D Total 22.2 L TSH 2.56 Ur Specific Iron Belt 1.015 Urine Protein Negative Urine Glucose (UA) Negative Urine Blood Trace H Urine Nitrite Negative Ur Leukocyte Esterase Negative Laboratory Tests 07/03/25 10:12 Hgb 12.1 L Coding Level of Care Code Est Pt Level 4 (12272) Diagnoses Essential hypertension I10 Mixed hyperlipidemia E78.2 Atherosclerotic cardiovascular disease I25.10 Anemia, unspecified type D64.9 Anemia type: unspecified type Elevated ferritin R79.89 Mild intermittent asthma without complication J45.20 Asthma severity: mild Asthma persistence: intermittent Asthma complication type: uncomplicated Gout, unspecified cause, unspecified chronicity, unspecified site M10.9 Gout site: unspecified site Gout etiology: unspecified cause Chronicity: unspecified Assessment & Plan Assessment & Plan (1) Essential hypertension: Code(s): I10 - Essential (primary) hypertension Category: Medical Plan: Reinforced low-sodium diet - goal is systolic BP of at least 120 to 130 mm or less Continue Losartan 100 mg QD, Nifedipine ER 60 mg QD and Atenolol 100 mg QD Patient is advised to continue monitoring his blood pressure regularly (2) Mixed hyperlipidemia: Code(s): E78.2 - Mixed hyperlipidemia Category: Medical Plan: Results of his labs done a couple of days ago reviewed and discussed with patient Reinforce low-cholesterol diet Continue Atorvastatin 40 mg QD and Vascepa 1 gm QD Will recheck his labs and fasting lipids in 3 months for follow up (3) Atherosclerotic cardiovascular disease: Code(s): I25.10 - Atherosclerotic heart disease of [place] coronary artery without angina pectoris Category: Medical Plan: Continue Aspirin 81 mg QD and Atenolol 100 mg QD Follow up with cardiology as scheduled (4) Anemia: Code(s): D64.9 - Anemia, unspecified Category: Medical Qualifiers: Anemia type: unspecified type Qualified Code(s): D64.9 - Anemia, unspecified Plan: His H/H was slightly low at 12.1/34.4 on his recent labs Will continue to monitor his CBC regularly (5) Elevated ferritin: Code(s): R79.89 - Other specified abnormal findings of blood chemistry Category: Medical Plan: Patient's ferritin level was elevated last year but is normal on his recent labs Will recheck this in a few months for follow up (6) Asthma: Comment: stable; same meds Code(s): J45.909 - Unspecified asthma, uncomplicated Category: Medical Qualifiers: Asthma severity: mild Asthma persistence: intermittent Asthma complication type: uncomplicated Qualified Code(s): J45.20 - Mild intermittent asthma, uncomplicated Plan: Controlled (7) Gout: Code(s): M10.9 - Gout, unspecified Category: Medical Qualifiers: Gout site: unspecified site Gout etiology: unspecified cause Chronicity: unspecified Qualified Code(s): M10.9 - Gout, unspecified Plan: Patient reports no acute gout flares in a while now Will recheck his serum uric acid level in a few months for follow up Plan Follow up in 3 months Orders: Orders Comprehensive [place]. Panel Fast 3 Months E78.00 - Pure hypercholesterolemia, unspecified Lipid Panel 3 Months E78.00 - Pure hypercholesterolemia, unspecified UA CC w/rflx Micro + Cult 3 Months R30.0 - Dysuria Complete Blood Count Auto Diff 3 Months D64.9 - Anemia, unspecified IRON PROFILE 3 Months D50.9 - Iron deficiency anemia, unspecified Uric Acid 3 Months M10.9 - Gout, unspecified Vitamin D 25-OH Total 3 Months E55.9 - Vitamin D deficiency, unspecified Vitamin B12 and Folate 3 Months E53.8 - Deficiency of other specified B group vitamins
--- OUTSIDE RECORDS SUMMARY | 2025-07-05 19:39 | XMS_ITS | Patient Health Record ---
Author Organization [facility] Address [address] [place] [address] Care Team Providers Care Machine Operations Supervisor Name Role Phone Robinson Napoles N.P. Primary Care Provider Pedro Chaparro [phone] Allergies Allergen (clinical drug ingredient) Drug/Non Drug Allergy documented on EMR Reaction Allergy Type Onset Date Status ragweed (uncoded) Unknown Allergy Ac tive Results Component Value Reference Range Notes Prothrombin Time INR Reviewed date:02/22/2025 10:46:46 PM Interpretation: Performing Lab:[facility], [address] [place] [phone] Notes/Report: Prothrombin Time 11.3 10.9-12.4 SEC INTERNATIONAL [...] Pnl Reviewed date:02/26/2025 05:57:56 PM Interpretation: Performing Lab:[facility], [address] [place] [phone] Notes/Report: Liver Fibrosis Score 0.46 Liver Fibrosis [...] a>0.62 and a<=1.00 : A3 (severe activity) ODN-Twkce-5-Macroglobulin 187 106-279 mg/dL FIB-Haptoglobin 140 43-212 mg/dL FIB-Apolipoprotein A1 132 94-176 mg/dL FIB-Total Bilirubin 0.7 0.2-1.2 mg/dL FIB-GGT 58 3-70 U/L FIB-ALT 27 9-46 U/L Reference ID [id number] Footnote SEE NOTE The reliability of results [...] The performance characteristics have been determined by [employer] [facility]. It has not been cleared or approved by the U.S. Food and Drug Administration. Performance characteristics refer to the analytical performance of the test. Chef, the associated logo, [employer] and all associated [employer] balderas are the registered trademarks of [employer]. All third alliance party balderas - (R) and (TM) - are the property of their respective owners. (C) 1956-4531 [employer]. All rights reserved. THIS TEST WAS PERFORMED AT: [employer] [facility] [address] [place] [address] IVETTE HICKMAN MD,PHD,[place] Therapeutic Phlebotomy Reviewed date:08/10/2024 11:03:35 PM Interpretation: Performing Lab:[facility], [address] [place] [phone] Notes/Report: THER/HGB 13.3 14.0-18.0 g/dL THER/HCT TNP 42.0-52.0 % Therapeutic Phlebotomy Phlebotomy Performed 500 mls drawn on 08/10/24. Please note that a copy of this report has been sent to the Primary Care Physician, the ordering physician and any physician designated by patient request. Liver Panel Reviewed date:10/16/2024 09:16:54 PM Interpretation: Performing Lab:[facility], [address] [place] [phone] Notes/Report: Bilirubin Total 0.7 0.0-1.0 mg/dL Bilirubin Direct 0.2 0.0-0.5 mg/dL Aspartate Amino Transferase 60 5-37 U/L Alanine Aminotransferase 45 0-40 U/L Total Protein 7.1 6.5-8.0 g/dL Albumin Level 4.5 3.5-5.0 g/dL Alkaline Phosphatase 108 39-117 U/L IRON PROFILE Reviewed date:10/16/2024 09:17:05 PM Interpretation: Performing Lab:[facility], [address] [place] [phone] Notes/Report: Iron 87 45-160 mcg/dL Total Iron Binding Capacity 360 228-428 mcg/dL Percent Iron Saturation 24 15-50 % Unsaturated Iron Binding 273 Ferritin Reviewed date:10/16/2024 09:15:19 PM Interpretation: Performing Lab:[facility], [address] [place] [phone] Notes/Report: Ferritin 193 20-250 ng/mL Therapeutic Phlebotomy Reviewed date:10/16/2024 09:17:18 PM Interpretation: Performing Lab:[facility], [address] [place] [phone] Notes/Report: THER/HGB 13.5 14.0-18.0 g/dL THER/HCT TNP 42.0-52.0 % Therapeutic Phlebotomy Phlebotomy Performed 500 mls drawn on 10/15/24. Please note that a copy of this report has been sent to the Primary Care Physician, the ordering physician and any physician designated by patient request. Liver Panel Reviewed date:12/17/2024 07:00:46 PM Interpretation: Performing Lab:[facility], [address] [place] [phone] Notes/Report: Bilirubin Total 0.9 0.0-1.0 mg/dL Bilirubin Direct 0.3 0.0-0.5 mg/dL Aspartate Amino Transferase 40 5-37 U/L Alanine Aminotransferase 37 0-40 U/L Total Protein 7.2 6.5-8.0 g/dL Albumin Level 4.3 3.5-5.0 g/dL Alkaline Phosphatase 105 39-117 U/L IRON PROFILE Reviewed date:12/17/2024 07:00:59 PM Interpretation: Performing Lab:[facility], [address] [place] [phone] Notes/Report: Iron 126 45-160 mcg/dL Total Iron Binding Capacity 335 228-428 mcg/dL Percent Iron Saturation 38 15-50 % Unsaturated Iron Binding 209 Ferritin Reviewed date:12/17/2024 07:01:17 PM Interpretation: Performing Lab:[facility], [address] [place] [phone] Notes/Report: Ferritin 126 20-250 ng/mL Therapeutic Phlebotomy Reviewed date:12/17/2024 12:36:38 PM Interpretation: Performing Lab:[address] [address] Notes/Report: THER/HGB 13.0 14.0-18.0 g/dL THER/HCT TNP 42.0-52.0 % Therapeutic Phlebotomy Phlebotomy Performed 500 mls drawn on 12/17/24. Please note that a copy of this report has been sent to the Primary Care Physician, the ordering physician and any physician designated by patient request. Therapeutic Phlebotomy Reviewed date:02/20/2025 10:06:52 PM Interpretation: Performing Lab:[address] [address] Notes/Report: THER/HGB 14.9 14.0-18.0 g/dL THER/HCT TNP 42.0-52.0 % Therapeutic Phlebotomy Phlebotomy Performed 500 mls drawn on 02/18/25. Please note that a copy of this report has been sent to the Primary Care Physician, the ordering physician and any physician designated by patient request. Alpha Fetoprotein Reviewed date:02/26/2025 05:56:20 PM Interpretation: Performing Lab:[address] [address] Notes/Report: Alpha Fetoprotein 2.9 <6.1 ng/mL This test was performed using the Rod Malina chemiluminescent method. Values obtained from different assay methods cannot be used interchangeably. AFP levels, regardless of value, should not be interpreted as absolute evidence of the presence or absence of disease. THIS TEST WAS PERFORMED AT: [facility] [address] [place] [phone] BLANCA MCKINNON MD US abdomen comp w elastograp hy (Not yet reviewed by provider) Interpretation: Performing Lab: Notes/Report: [address] [address] Ultrasound Report Signed Patient: Kurt Thacker Jr MR#: [id number] 9 : 1955 Acct:[id number] Age/Sex: 69 / M ADM Date: 04/07/25 Loc: HO.US Attending Dr: Pedro Hedrick MD Ordering Physician: Pedro Hedrick MD Date of Service: 04/07/25 Procedure(s): US abdomen comp w elastography Accession Number(s): [id number] cc: Robinson Napoles; Pedro Hedrick MD EXAMINATION: [...] 04/14/25 1028 DD/ 0807 TD/TT: 04/07/25 0846 Roll Up Helper: MARCELO Therapeutic Phlebotomy Reviewed date:04/20/2025 10:19:00 PM Interpretation: Performing Lab:[address] [address] Notes/Report: THER/HGB 13.8 14.0-18.0 g/dL THER/HCT TNP 42.0-52.0 % Therapeutic Phlebotomy Phlebotomy Performed 500 mls drawn on 04/20/25. Please note that a copy of this report has been sent to the Primary Care Physician, the ordering physician and any physician designated by patient request. IRON PROFILE (Not yet review ed by provider) Interpretation: Performing Lab:[address] [address] Notes/Report: Iron 61 45-160 mcg/dL Total Iron Binding Capacity 353 228-428 mcg/dL Percent Iron Saturation 17 15-50 % Unsaturated Iron Binding 292 Ferritin (Not yet reviewed b y provider) Interpretation: Performing Lab:[facility], [address] [place] [phone] Notes/Report: Ferritin 121 20-250 ng/mL Therapeutic Phlebotomy (Not yet reviewed by provider) Interpretation: Performing Lab:[facility], [address] [place] [address] Notes/Report: THER/HGB 13.9 14.0-18.0 g/dL THER/HCT TNP [...] Problem Status W/U Status Risk Notes Problem 221519735 Colon cancer screening (Z12.11) Active confirmed Problem 733636100 History of adenomatous polyp of colon (Z86.010) Active confirmed Problem Diverticular disease of colon (060330714) Diverticulosis of large intestine without perforation or abscess without bleeding (K57.30) Active confirmed Problem 595043915 Elevated liver function tests (R79.89) Active confirmed Problem 141745886380586 Preprocedural examination (Z01.818) Active confirmed Problem Fatty liver (771120440) Fatty liver (K76.0) Active confirmed Problem 235416427 Family history o f colon cancer (Z80.0) Active confirmed Problem 55629166 Iron excess (E83.19) Active confirmed Problem Elevated liver enzymes level (896158331) Elevated liver function tests (R94.5) Active confirmed Problem Hepatic fibrosis (disorder) (16570409) Liver fibrosis (K74.00) Active confirmed Vital Signs Blood pressure diastolic 77 mm Hg 02/18/2025 Height 68.5 in 02/18/2025 Blood pressure systolic 111 mm Hg 02/18/2025 Weight 190 lbs 02/18/2025 BMI 28.47 kg/m2 02/18/2025 Encounters Encounter Location Date Provider Diagnosis [facility] [address] [place] [phone] 02/18/2025 Pedro Hedrick Colon cancer screening Z12.11 ; Iron excess E83.19 ; Liver fibrosis K74.00 ; Fatty liver K76.0 and Elevated liver function tests R79.89 [facility] [address] [place] [phone] 02/18/2025 Pedro Hedrick [facility] [address] [place] [phone] 04/07/2025 Pedro Hedrick Assessments Encounter Date Diagnosis [...] Thromboplastin Time 12/02/2022 IRON PROFILE 06/25/2025 Ferritin 06/25/2025 Ferritin 12/02/2022 Ferritin 10/31/2022 Alpha 1 Anti-trypsin [...] Provider Name:Pedro Hedrick , 02/24/2026 09:00:00 AM, [address] [place] [address], [address], [place], [address], Insurance Providers Payer Name Payer Address Payer Phone Subscriber Number Group Number Insured Name Patient Relationship to Insured Coverage Start Date Coverage End Date [facility] [address] [place] [address] [id number] KURT THACKER Self - patient is the [...] 2023 and is being treated medically by [facility]. He did not require a cardiac catheterization and has no history of [place]. Surgical History Surgery Date(Month/Year) Detached retina Vasectomy
== END 2025-07-05 15:26 | disposition home or self-care (01) ==
LOC: HO.HMCH 14:17
PROVIDERS: PCP Internal Medicine; Visit Provider Internal Medicine
DX: I10 Essential (primary) hypertension (principal); E78.2 Mixed hyperlipidemia; I25.10 Atherosclerotic heart disease of native coronary artery without angina pectoris; D64.9 Anemia, unspecified; R79.89 Other specified abnormal findings of blood chemistry; J45.20 Mild intermittent asthma, uncomplicated; M10.9 Gout, unspecified

== ENCOUNTER → 2025-07-05 14:17 | Outpatient (BNVA) | payer MEDICARE, SELFPAY | PROVIDERS: PCP Internal Medicine; Visit Provider Internal Medicine | DX: I10 Essential (primary) hypertension (principal); E78.2 Mixed hyperlipidemia; I25.10 Atherosclerotic heart disease of native coronary artery without angina pectoris; D64.9 Anemia, unspecified; R79.89 Other specified abnormal findings of blood chemistry; J45.20 Mild intermittent asthma, uncomplicated; M10.9 Gout, unspecified; R30.0 Dysuria; E55.9 Vitamin D deficiency, unspecified | CPT/HCPCS: 99212 ==

== ENCOUNTER 2025-08-09 12:50 | Outpatient (AMB) | payer MEDICARE, SELFPAY ==
--- NOTE | 2025-08-09 13:03 | MHC.PC.OV ---
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 Physical Therapist Required: No Accompanied by: Self / Same As Patient Allergies Seasonal Allergies Allergy (Mild, Verified 08/09/25 13:05) Sneezing Tobacco use date assessed: 08/09/25 Last assessed Fall Risk: 08/09/25 Dental Screening Dental Screen Date: 08/09/25 [facility] Medical History (Updated 07/12/25 @ 05:10 by Arpit Cheung MD) Mixed hyperlipidemia Essential hypertension Asthma Hypertension Surgical History History of laser refractive surgery History of cholecystectomy History of vasectomy Family History Father Gout Diabetes Hypertension Past heart attack Mother Diabetes Colon cancer Sister No problems noted. Sister No problems noted. Son No problems noted. Son No problems noted. Social History Housing: House Alcohol intake: current Alcohol intake frequency: 0-2 drinks per day Alcohol type: wine Patient Tobacco Use Status: Never used Tobacco Tobacco use type: Cigarette e-Cigarette/Vaping Use: Never Used Second Hand Smoke Exposure: No service: No Current occupational status: retired Cognitive needs: No Hearing needs: No Vision needs: Yes (glasses ) Questionnaire Thrive Questionnaire Date Thrive assessed: 03/31/25 I am a: Patient What is your living situation today?: I have a steady place to live Within the past 12 months, did the food you bought not last and you didn't have the money to get more?: Never true Within the past 12 months, did you worry whether your food would run out before you got money to buy more?: Never true Do you have trouble paying for medicines?: No Do you have trouble getting transportation to medical appointments?: No Do you have trouble paying your heating and electricity bill?: No Do you have trouble taking care of your child, family member or friend?: No Do you have trouble with day-to-day activities such as bathing, preparing meals, shopping, managing finances, etc.?: No Are you currently unemployed and looking for a job?: No Are you interested in more education?: No Please select the resources that you would like help with: None Currently or been in a relationship where the following occur: No concerns reported THRIVE Score: 0 AUDIT C Alcohol Use Questionnaire (AUDIT-C) 1. How often do you have a drink containing alcohol?: 2-3 times a week 2. How many drinks containing alcohol do you have on a typical day when you are drinking?: 1 or 2 3. How often do you have six or more drinks on one occasion?: Never Total Score: 3 Score Reviewed/Action Taken: Yes LEYDI-7 AMB Questionnaire LEYDI-7 Date LEYDI - 7 assessed: 04/02/25 Source: Developed by Drs. Pedro Ibarra, Janice Moya, Randall Romo and colleagues, with an educational cintia from [employer] Physical exam (Primary Care) Tobacco/Smoking Status: Tobacco use Status Tobacco use date assessed 07/05/25 07/05/25 14:41 Patient Tobacco Use Status Never used Tobacco 07/05/25 14:41 Tobacco use type Cigarette 07/05/25 14:41 e-Cigarette/Vaping Use Never Used 07/05/25 14:41 Thrive Assessment: Date of Thrive Assessment Date Thrive assessed 03/31/25 07/05/25 14:41 Currently or been in a relationship where the following occur: No concerns reported Coding Assessment & Plan Assessment & Plan Orders: Orders Influenza [id number] Immunization Today Z23 - Encounter for immunization Medications: New Fluarix (PF) (flu vac ts (6mos up)-PF) 0.5 mL IM ONCE 0.5 mL 0RF NS Z23 - Encounter for immunization
== END 2025-08-09 13:15 | disposition home or self-care (01) ==
LOC: HO.HMCH 12:51
PROVIDERS: PCP Internal Medicine; Visit Provider Internal Medicine
DX: Z23 Encounter for immunization (principal)

== ENCOUNTER → 2025-08-09 12:50 | Outpatient (BNVA) | payer MEDICARE, SELFPAY | PROVIDERS: PCP Internal Medicine; Visit Provider Internal Medicine | DX: Z23 Encounter for immunization (principal) | CPT/HCPCS: 90471; 90656 ==

== ENCOUNTER 2025-08-26 10:59 | Outpatient (REF) | payer MEDICARE, SELFPAY ==
--- OUTSIDE RECORDS SUMMARY | 2025-08-26 13:24 | XMS_ITS | Patient Health Record ---
Author Organization [facility] Address [address] [place] [address] Care Team Providers Care Quality Review Trainer Name Role Phone Robinson Napoles N.P. Primary Care Provider Pedro Chaparro [phone] Allergies Allergen (clinical drug ingredient) Drug/Non Drug Allergy documented on EMR Reaction Allergy Type Onset Date Status ragweed (uncoded) Unknown Allergy Ac tive Results Component Value Reference Range Notes Prothrombin Time INR Reviewed date:02/22/2025 10:46:46 PM Interpretation: Performing Lab:[facility], [address] [place] [phone] Notes/Report: Prothrombin Time 11.3 10.9-12.4 SEC INTERNATIONAL [...] Pnl Reviewed date:02/26/2025 05:57:56 PM Interpretation: Performing Lab:[facility], [address] [place] [phone] Notes/Report: Liver Fibrosis Score 0.46 Liver Fibrosis [...] a>0.62 and a<=1.00 : A3 (severe activity) YYT-Teuyb-4-Macroglobulin 187 106-279 mg/dL FIB-Haptoglobin 140 43-212 mg/dL FIB-Apolipoprotein A1 132 94-176 mg/dL FIB-Total Bilirubin 0.7 0.2-1.2 mg/dL FIB-GGT 58 3-70 U/L FIB-ALT 27 9-46 U/L Reference ID [id number] Footnote SEE NOTE The reliability of results [...] The performance characteristics have been determined by [employer] [facility]. It has not been cleared or approved by the U.S. Food and Drug Administration. Performance characteristics refer to the analytical performance of the test. [employer], the associated logo, [employer] and all associated [employer] balderas are the registered trademarks of [employer]. All third democrat balderas - (R) and (TM) - are the property of their respective owners. (C) 4913-8090 [employer]. All rights reserved. THIS TEST WAS PERFORMED AT: [employer] [facility] [place] [address] [place] [address] IVETTE HICKMAN MD,PHD,[place] Liver Panel Reviewed date:10/16/2024 09:16:54 PM Interpretation: Performing Lab:[facility], [address] [place] [phone] Notes/Report: Bilirubin Total 0.7 0.0-1.0 mg/dL Bilirubin Direct 0.2 0.0-0.5 mg/dL Aspartate Amino Transferase 60 5-37 U/L Alanine Aminotransferase 45 0-40 U/L Total Protein 7.1 6.5-8.0 g/dL Albumin Level 4.5 3.5-5.0 g/dL Alkaline Phosphatase 108 39-117 U/L IRON PROFILE Reviewed date:10/16/2024 09:17:05 PM Interpretation: Performing Lab:[facility], [address] [place] [phone] Notes/Report: Iron 87 45-160 mcg/dL Total Iron Binding Capacity 360 228-428 mcg/dL Percent Iron Saturation 24 15-50 % Unsaturated Iron Binding 273 Ferritin Reviewed date:10/16/2024 09:15:19 PM Interpretation: Performing Lab:[facility], [address] [place] [phone] Notes/Report: Ferritin 193 20-250 ng/mL Therapeutic Phlebotomy Reviewed date:10/16/2024 09:17:18 PM Interpretation: Performing Lab:[facility], [address] [place] [phone] Notes/Report: THER/HGB 13.5 14.0-18.0 g/dL THER/HCT TNP 42.0-52.0 % Therapeutic Phlebotomy Phlebotomy Performed 500 mls drawn on 10/15/24. Please note that a copy of this report has been sent to the Primary Care Physician, the ordering physician and any physician designated by patient request. Liver Panel Reviewed date:12/17/2024 07:00:46 PM Interpretation: Performing Lab:[address] [address] Notes/Report: Bilirubin Total 0.9 0.0-1.0 mg/dL Bilirubin Direct 0.3 0.0-0.5 mg/dL Aspartate Amino Transferase 40 5-37 U/L Alanine Aminotransferase 37 0-40 U/L Total Protein 7.2 6.5-8.0 g/dL Albumin Level 4.3 3.5-5.0 g/dL Alkaline Phosphatase 105 39-117 U/L IRON PROFILE Reviewed date:12/17/2024 07:00:59 PM Interpretation: Performing Lab:[facility], [address] [place] [phone] Notes/Report: Iron 126 45-160 mcg/dL Total Iron Binding Capacity 335 228-428 mcg/dL Percent Iron Saturation 38 15-50 % Unsaturated Iron Binding 209 Ferritin Reviewed date:12/17/2024 07:01:17 PM Interpretation: Performing Lab:[facility], [address] [place] [phone] Notes/Report: Ferritin 126 20-250 ng/mL Therapeutic Phlebotomy Reviewed date:12/17/2024 12:36:38 PM Interpretation: Performing Lab:[address] [address] Notes/Report: THER/HGB 13.0 14.0-18.0 g/dL THER/HCT TNP 42.0-52.0 % Therapeutic Phlebotomy Phlebotomy Performed 500 mls drawn on 12/17/24. Please note that a copy of this report has been sent to the Primary Care Physician, the ordering physician and any physician designated by patient request. Therapeutic Phlebotomy Reviewed date:02/20/2025 10:06:52 PM Interpretation: Performing Lab:[address] [phone] Notes/Report: THER/HGB 14.9 14.0-18.0 g/dL THER/HCT TNP 42.0-52.0 % Therapeutic Phlebotomy Phlebotomy Performed 500 mls drawn on 02/18/25. Please note that a copy of this report has been sent to the Primary Care Physician, the ordering physician and any physician designated by patient request. Alpha Fetoprotein Reviewed date:02/26/2025 05:56:20 PM Interpretation: Performing Lab:[address] [address] Notes/Report: Alpha Fetoprotein 2.9 <6.1 ng/mL This test was performed using the Rod Malina chemiluminescent method. Values obtained from different assay methods cannot be used interchangeably. AFP levels, regardless of value, should not be interpreted as absolute evidence of the presence or absence of disease. THIS TEST WAS PERFORMED AT: [facility] [address] [place] [phone] BLANCA MCKINNON MD US abdomen comp w elastograp hy (Not yet reviewed by provider) Interpretation: Performing Lab: Notes/Report: [address] [address] Ultrasound Report Signed Patient: Christel Thacker Jr MR#: [id number] 9 : 1955 Acct:[id number] Age/Sex: 69 / M ADM Date: 04/07/25 Loc: HO.US Attending Dr: Pedro Hedrick MD Ordering Physician: Pedro Hedrick MD Date of Service: 04/07/25 Procedure(s): US abdomen comp w elastography Accession Number(s): [id number] cc: Robinson Napoles; Pedro Hedrick MD EXAMINATION: [...] 04/14/25 1028 DD/ 0807 TD/TT: 04/07/25 0846 Multifocal Button Generator: MARCELO Therapeutic Phlebotomy Reviewed date:04/20/2025 10:19:00 PM Interpretation: Performing Lab:[address] [address] Notes/Report: THER/HGB 13.8 14.0-18.0 g/dL THER/HCT TNP 42.0-52.0 % Therapeutic Phlebotomy Phlebotomy Performed 500 mls drawn on 04/20/25. Please note that a copy of this report has been sent to the Primary Care Physician, the ordering physician and any physician designated by patient request. IRON PROFILE Reviewed date:07/11/2025 06:03:25 PM Interpretation: Performing Lab:[address] [address] Notes/Report: Iron 61 45-160 mcg/dL Total Iron Binding Capacity 353 228-428 mcg/dL Percent Iron Saturation 17 15-50 % Unsaturated Iron Binding 292 Ferritin Reviewed date:07/11/2025 06:03:15 PM Interpretation: Performing Lab:[address] [address] Notes/Report: Ferritin 121 20-250 ng/mL Therapeutic Phlebotomy Reviewed date:07/11/2025 06:03:05 PM Interpretation: Performing Lab:[facility], [address] [facility] [place] [address] Notes/Report: THER/HGB 13.9 14.0-18.0 g/dL THER/HCT TNP [...] Problem Status W/U Status Risk Notes Problem Colon cancer screening (778890738) Colon cancer screening (Z12.11) Active confirmed Problem History of adenomatous polyp of colon (004305243) History of adenomatous polyp of colon (Z86.010) Active confirmed Problem Diverticular disease of colon (309723871) Diverticulosis of large intestine without perforation or abscess without bleeding (K57.30) Active confirmed Problem Elevated liver enzymes level (138394634) Elevated liver function tests (R79.89) Active confirmed Problem Preprocedural examination (935515281598089) Preprocedural examination (Z01.818) Active confirmed Problem Fatty liver (530338802) Fatty liver (K76.0) Active confirmed Problem Family History of Cancer of Colon (Situation) (131580580) Family history of colon cancer (Z80.0) Active confirmed Problem Iron excess (08144404) Iron excess (E83.19) Active confirmed Problem Elevated liver enzymes level (954364318) Elevated liver function tests (R94.5) Active confirmed Problem Hepatic fibrosis (disorder) (95254499) Liver fibrosis (K74.00) Active confirmed Vital Signs Blood pressure diastolic 77 mm Hg 02/18/2025 Height 68.5 in 02/18/2025 Blood pressure systolic 111 mm Hg 02/18/2025 Weight 190 lbs 02/18/2025 BMI 28.47 kg/m2 02/18/2025 Encounters Encounter Location Date Provider Diagnosis [facility] [address] [place] [address] 02/18/2025 Pedro Hedrick Colon cancer screening Z12.11 ; Iron excess E83.19 ; Liver fibrosis K74.00 ; Fatty liver K76.0 and Elevated liver function tests R79.89 [facility] [address] [place] [address] 02/18[facility]20[facility] [address] [place] [address] 04/07/2025 Pedro Hedrick Assessments Encounter Date Diagnosis [...] Name:Pedro Hedrick , 02/24/2026 09:00:00 AM, [address] [facility], [address], [place], [address], Insurance Providers Payer Name Payer Address Payer Phone Subscriber Number Group Number Insured Name Patient Relationship to Insured Coverage Start Date Coverage End Date [facility] [address] [place] [address] [id number] ELIZABETH CHRISTEL Self - patient is the insured Medical [...] 2023 and is being treated medically by [facility]. He did not require a cardiac catheterization and has no history of [place]. Surgical History Surgery Date(Month/Year) Detached retina Vasectomy
== END 2025-08-26 11:00 | disposition home or self-care (01) ==
LOC: HO.BBR 10:59
PROVIDERS: PCP Internal Medicine; Visit Provider Internal Medicine
DX: E83.19 Other disorders of iron metabolism (principal)
CPT/HCPCS: 85014; 85018; 99195